=== PATIENT | female | born 1950 | race Caucasian/White ===

== ENCOUNTER → 2016-11-16 | Outpatient (CLI) | payer BC, MEDICARE ==
[2014-04-03 15:15] VITALS: BP 126/72
[~2016-11-16] MED LIST: ANAS1TAB3 PO; BUTA1CAP31 PO; CALC500T30 PO; CETI10CA PO; DILT240C11 PO; HYDR-965 PO; IBUP100T8 PO; INDO25CA PO; LOSA50TA6 PO; METF-620 PO; MULT-245 PO; OMEP10CA PO; OMEP20CA9 PO; ZOLP10TA4 PO
--- NOTE | 2016-11-16 12:26 | RAD ---
MRI Lumbar Spine without contrast History: Low back pain with bilateral leg radiculopathy Technique: Multiplanar, multi sequential noncontrast MR imaging was performed of the lumbar spine. Contrast: None Comparison: None Findings: There is old superior height loss and large Schmorl's node of L1, also superior endplate concavity of L2 not associated with significant marrow edema. There is more advanced degenerative disc disease L5-S1, L3-4, L2-3 and to lesser degree at L4-5. L5-S1 endplate edema and to lesser degree superiorly of L5 likely to be reactive/degenerative in etiology. There is grade 1 anterior spondylolisthesis at L5-S1 due to bilateral L5 spondylolysis. Conus terminates normally at L1-2. There is 3.3 cm likely cyst of the left kidney. T12-L1: Spinal canal and neural foramina are adequate. There is mild buckling of the ligamentum flavum. L1-L2: There is very minimal disc osteophyte complex. There is mild narrowing of the right neural foramen, left neural foramen adequate. Spinal canal is overall adequate. L2-L3: There is minimal broad posterior disc osteophyte complex somewhat greater in the far right lateral recess at which there is shallow superimposed protrusion. There is moderate narrowing of the far lateral recesses bilaterally somewhat greater on the right. There is fzuq-pj-ttorjevm narrowing of the right neural foramen, left neural foramen overall adequate. L3-L4: There is moderate hypertrophic change and mild to moderate buckling of the ligamentum flavum greater on the right. There is minimal disc osteophyte complex. There is jgeu-vs-drzynljk spinal stenosis. There is moderate narrowing of the right neural foramen, left neural foramen overall adequate. L4-L5: Spinal canal is adequate. There is moderate facet hypertrophic change. There is minimal narrowing of the right neural foramen, left neural foramen overall adequate. L5-S1: There is partial uncovering of the posterior aspect of the disc due to spondylolisthesis, superimposed disc osteophyte complex and bulge, also protrusion in the left neural foramen. There is severe narrowing of the neural foramina bilaterally with impingement of the exiting L5 nerve roots. Spinal canal is adequate. Impression: 1. There is grade 1 anterior spondylolisthesis at L5-S1 due to bilateral L5 spondylolysis. There is severe bilateral L5-S1 neural foramina compromise with impingement of the exiting L5 nerve roots bilaterally. 2. There is more advanced degenerative disc disease L2-3, L3-4, L5-S1 and to lesser degree at L4-5. There is multilevel spondylosis. 3. There is mild to moderate spinal stenosis at L3-4, also moderate lateral recess stenosis bilaterally at L2-3. 4. There is other tbah-jo-ihoqoreu neural foramina compromise as stated. 5. There is left renal cyst. Electronically signed by: Marcio Pratt MD (11/16/2016 12:23 PM) [facility] [email or web address]
== END | disposition home or self-care (01) ==
LOC: MRI 10:27
PROVIDERS: ATTEND Nurse Practitioner Family
DX: M51.16 Intervertebral disc disorders with radiculopathy, lumbar region (principal); M48.06 Spinal stenosis, lumbar region; M43.17 Spondylolisthesis, lumbosacral region; N28.1 Cyst of kidney, acquired
CPT/HCPCS: 72148

== ENCOUNTER → 2016-12-16 | Outpatient (CLI) | payer BC, MEDICARE ==
[2014-04-03 15:15] VITALS: BP 126/72
[~2016-12-16] MED LIST changes: +ALEN70TA3 PO; +DILT240C2 PO; +IOHEXOL 180 MG/ML 10 ML VIAL. ONE; +ZOLP5TAB PO; +methylPREDNISolone ACETATE 40 MG/ML VIAL. ONE; +methylPREDNISolone ACETATE 80 MG/ML VIAL. ONE
--- NOTE | 2016-12-16 14:00 | PAIN ---
DATE OF SERVICE: 12/16/2016 CHIEF COMPLAINT: Low back and right lower extremity pain. HISTORY OF PRESENT ILLNESS: This is a 66-year-old female with history of pain for many years but worse over the past 6 months or so in the low back and right lower extremity with radiating pain in the right posterior lateral thigh, posterior gluteus, posterior calf with cramping in the calf on the right side into the foot as well. She reports it is a stabbing, radiating, can be cold sensation in the right foot with burning and cramping at times as well. The patient reports not a result of any specific injury or accident that she is aware of. It has been gradually getting worse over time. The patient reports it awakens her from sleep, but only rarely. Does not affect her bowel or bladder control, but does affect her ability to walk. She feels weakness in the right lower extremity, no complete loss of motor function, but significant fatigability and weakness with the right leg with ambulation. The patient reports it is better with sitting or lying down, again rarely awakens her from sleep, worse with standing, walking, changing positions. The patient is doing some stretching and strengthening exercises on her own. She has tried also ibuprofen and Fioricet, which helps to moderate extent about 20-30% decreasing the pain each of these. The patient reports no loss of motor function again, but significant fatigability in the right leg compared to the left. PAST MEDICAL HISTORY: Significant for hypertension, type 2 diabetes, hearing loss, history of breast cancer in 2012, cigarette smoking, quit 20 years ago, arthritis, osteoporosis, headaches. PREVIOUS SURGERY: Includes tonsillectomy, right second toe amputation, appendectomy, thyroid cyst removal, bone graft left foot in 1993, right toe surgery in 2004, right knee scope 2008, segmental mastectomy on the right in 2012 and left knee scope in 2014. CURRENT MEDICATIONS: Include multivitamins, Fiorinal, metformin, Arimidex, diltiazem, Zyrtec, losartan, Cardizem, Fosamax, and Ambien. ALLERGIES: THE PATIENT IS ALLERGIC TO SULFA. FAMILY HISTORY: Significant for no major medical problems or conditions that she is aware of. 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 REVIEW OF SYSTEMS: The patient's review of systems is positive for those items mentioned in history of present illness. All systems reviewed and otherwise negative. It is complete, full, well documented on the patient's chart. PHYSICAL EXAMINATION: VITAL SIGNS: Today, the patient's blood pressure is 144/81, pulse 80, respirations 18, temperature 97.3 degrees Fahrenheit, height 5 feet 1 inch. Weight is 194 pounds. GENERAL: The patient is awake, alert, oriented, appropriate, very pleasant demeanor. HEENT: Head shows normocephalic, atraumatic. Extraocular movements are intact, symmetrical. Oral cavity, mucous membranes are moist and pink. Dentition is intact. NECK: Shows anterior throat supple without palpable lymphadenopathy noted. Swallow reflex is symmetrical. CHEST: Shows normal on inspection. Breath sounds are clear to auscultation bilaterally. HEART: Shows S1 and S2 clear. Previous surgical scars noted from right mastectomy. ABDOMEN: Soft, nontender, nondistended. No palpable organomegaly. No rebound or guarding demonstrated. BACK: Shows spine grossly midline. Normal appearing cervical lordotic curvature, thoracic kyphotic curvature, and lumbar lordotic curvature. No previous bruises, lesions, rashes or scars are noted. Lumbar paraspinous muscle shows symmetrical on inspection. With palpation shows some moderate tenderness, more on the right than the left with direct palpation, but only diffusely without trigger points, without radiation of pain. The patient has full rotational motion of lumbar spine, both laterally greater than 10 degrees right and left as well as extension greater than 10 degrees, forward flexion at 45 degrees without difficulty. The patient's lower extremities showed deep tendon reflexes 2+/4 in the patellar and 1+ in calcaneus tendon and equal. Motor exam is approximately 4 on a scale of 5 with right dorsiflexion and extension and 5/5 on the left. Peripheral pulses are 1+ posterior tibial and dorsalis pedis pulses. No peripheral edema is noted. No clubbing, no cyanosis. Lower extremities are warm and dry to touch, equal in color and appearance. The patient's straight leg raise noted to be positive on the right at about 40-45 degrees and left side is negative. Gaenslen's and Rogelio's maneuvers are negative bilaterally. The patient is able to stand, stand on her toes without significant difficulty or loss of balance, walks with a normal appearing gait, slightly favoring the right lower extremity, not using any assistive devices such as canes or walkers to ambulate for short distances in the office today. IMPRESSION: 1. This is a 66-year-old female with assisted low back pain and about 6 months of increasing radicular pain in right lower extremity as noted. 2. MRI scan of the lumbar spine showing L5-S1 superimposed disk osteophyte complex and perfusion in the left neural foramen with severe narrowing of the neural foramina bilaterally with impingement of exiting L5 nerve roots. 3. Hypertension. 4. Type 2 diabetes. 5. History of breast cancer. PLAN: Options were discussed with the patient including conservative medical management, physical therapy, interventional techniques and she would like to pursue interventional techniques. We discussed a lumbar epidural steroid injection using description as well as anatomical models to describe the procedure. Risks were then discussed including, but not limited to bleeding, infection, possibility of epidural hematoma, subsequent neurologic compromise, dural puncture, headaches, spinal cord and/or nerve damage, side effects of steroid medication and poor results regarding pain control. The patient understands and wishes to proceed. The patient will return to clinic in approximately 2 weeks for followup. She was counseled as to return appointment, activity level and side effects to be aware of. DIAGNOSES: Lumbar radiculopathy with lumbar degenerative disk disease and lumbar spinal stenosis. PROCEDURE: Lumbar epidural steroid injection in translaminar approach at the L5-S1 level using C-arm fluoroscopic guidance under sterile prep and drape using local anesthetic. Medication injected a total of 120 mg Depo-Medrol plus 10 mL of preservative-free normal saline and 2 mL Isovue for contrast. CONDITION AT DISCHARGE: Stable. The patient tolerated the procedure well, had no complications. JEAN PIERRE CLIFTON MD DR: MARA/gissel JOB#: [id number] / [id number]
== END | disposition home or self-care (01) ==
LOC: PNCL 10:59
PROVIDERS: ATTEND Anesthesiology
DX: M51.16 Intervertebral disc disorders with radiculopathy, lumbar region (principal); M48.061 Spinal stenosis, lumbar region without neurogenic claudication; I10 Essential (primary) hypertension; E11.9 Type 2 diabetes mellitus without complications; K21.9 Gastro-esophageal reflux disease without esophagitis; M19.91 Primary osteoarthritis, unspecified site; Z72.89 Other problems related to lifestyle; Z85.3 Personal history of malignant neoplasm of breast; Z98.890 Other specified postprocedural states; Z86.69 Personal history of other diseases of the nervous system and sense organs; Z87.39 Personal history of other diseases of the musculoskeletal system and connective tissue; Z88.2 Allergy status to sulfonamides
CPT/HCPCS: 62323; J1030; J1040

== ENCOUNTER → 2017-01-05 | Outpatient (CLI) | payer BC ==
[2014-04-03 15:15] VITALS: BP 126/72
[~2017-01-05] MED LIST changes: -IOHEXOL 180 MG/ML 10 ML VIAL. ONE; -methylPREDNISolone ACETATE 40 MG/ML VIAL. ONE; -methylPREDNISolone ACETATE 80 MG/ML VIAL. ONE
--- NOTE | 2017-01-05 14:24 | KCIC ---
DATE: December 2017 01/05/2017 EXAM: MAMMO GABRIEL VY ALEJANDRE, BREAST LEFT HISTORY: History of right breast carcinoma status post lumpectomy in 2012 COMPARISON: Multiple prior comparisons including diagnostic bilateral 10/25/2015, 02/06/2014, 02/10/2013 This study was interpreted with the benefit of Computerized Aided Detection (CAD). FINDINGS: Bilateral diagnostic mammogram: The breast parenchyma is primarily fatty replaced. Breast parenchyma level density A. Bilateral digital 2-D and 3-D CC and MLO views were obtained. There are postsurgical changes of a lumpectomy in the superior right breast. There are scattered benign calcifications throughout the right breast. There is a possible nodule in the left breast seen on the gabriel images. Patient will proceed to left breast ultrasound for further evaluation. Left breast ultrasound: Survey of the entire left breast demonstrates no suspicious mass or fluid collection. IMPRESSION: Postsurgical changes in the right breast with no mammographic evidence to suggest malignancy. Recommend routine screening bilateral mammogram in 12 months. BI-RADS CATEGORY: 2 BENIGN FINDING(S) RECOMMENDED FOLLOW-UP: ADD ADDITIONAL IMAGING PQRS compliance statement: Patient information was entered into a reminder system with a target due date December 2017 for the next mammogram. Mammography is a sensitive method for finding small breast cancers, but it does not detect them all and is not a substitute for careful clinical examination. A negative mammogram does not negate a clinically suspicious finding and should not result in delay in biopsying a clinically suspicious abnormality. "Our facility is accredited by the [employer] Mammography Program."
== END ==
LOC: KCIC MAMMO 10:16
PROVIDERS: ATTEND Internal Medicine Hematology & Oncology
DX: Z12.31 Encounter for screening mammogram for malignant neoplasm of breast (principal)
CPT/HCPCS: 76641; G0204; G0279; 77062; 77066

== ENCOUNTER → 2017-10-08 | Outpatient (CLI) | payer BC, MEDICARE ==
[2014-04-03 15:15] VITALS: BP 126/72
[~2017-10-08] MED LIST changes: -INDO25CA PO; +INDO25CA5 PO; +IOHEXOL 180 MG/ML 10 ML VIAL. ONE; +LIDOCAINE 2% PF 2ML VIAL. ONE; -METF-620 PO; +METF10003 PO; +OMEG1CAP6 PO; +methylPREDNISolone ACETATE 40 MG/ML VIAL. ONE; +methylPREDNISolone ACETATE 80 MG/ML VIAL. ONE
--- NOTE | 2017-10-08 18:52 | PAIN ---
DATE OF SERVICE: 10/08/2017 DIAGNOSES: Lumbar radiculopathy with lumbar spinal stenosis, lumbar degenerative disk disease. HISTORY OF PRESENT ILLNESS: The patient is a 67-year-old female who returns for followup status post lumbar epidural steroid injection x 1 on 06/22/2017. The patient reports she did very well about 60% improvement overall, still doing well but still some pain in the low back and right and left lower extremities. The patient reports the right is worse, but the left side is having some increased pain radiating into the posterior gluteus, posterior thigh, posterior calf, lateral calf into the ankle bilaterally. The patient reports it is burning, stabbing, radiating, sometimes dull across the low back as well. The patient reports it is a 7 on a scale of 10 at its worse, 5 on average, 3 at its least and is a 5 today. The patient reports no new motor or sensory deficits. She had been increasing her activity of distance walking and doing household activities with greater ease and comfort, sleeping better at night, still sleeps well, does not awaken her from sleep. No new motor or sensory deficits, no bowel or bladder incontinence or other complaints. PHYSICAL EXAMINATION: VITAL SIGNS: The patient's blood pressure 113/74, pulse 79, respirations 20, temperature is 97.9 degrees Fahrenheit, height is 5 feet 1 inch, weight 193 pounds. GENERAL: The patient is awake, alert, oriented, appropriate, very pleasant demeanor. HEENT: Shows normocephalic, atraumatic. Extraocular movements intact, symmetrical. Oral cavity: Mucous membranes moist and pink. Dentition is intact. NECK: Shows anterior throat supple without palpable lymphadenopathy noted. Swallow reflex is symmetrical. CHEST: Shows normal on inspection. Breath sounds clear to auscultation bilaterally. HEART: Shows S1, S2 clear. No murmurs auscultated. ABDOMEN: Soft, nontender, nondistended. No palpable organomegaly is noted. No rebound or guarding demonstrated. BACK: Shows spine grossly in the midline. Slight exaggeration of thoracic kyphosis and minor flattening of lumbar lordotic curvature. Lumbar paraspinous musculature shows symmetrical on inspection, on palpation shows some moderate tenderness, but only diffusely in the lower lumbar distribution of paraspinous muscles bilaterally without radiation. The patient's back shows good rotational motion both laterally as well as extension and flexion without difficulty. EXTREMITIES: Lower extremities show deep tendon reflexes 2+ in the patellar, 1+ tendo-calcaneus tendons. Motor exam is approximately 4 on a scale of 5 on the right with dorsiflexion, extension, 5/5 on the left. Peripheral pulses are 1+ posterior tibial and no peripheral edema is noted bilaterally. Options were discussed with the patient. The patient's old chart was reviewed as her current medication regimen and updated. Current review of systems is updated today as well. We will proceed with a second lumbar epidural steroid injection today with fluoroscopic guidance. Risks were again discussed including, but not limited to bleeding, infection, possibility of epidural hematoma and subsequent neurological compromise, dural puncture, headaches, spinal cord and/or nerve damage, side effects of steroid medication and poor results regarding pain control. The patient understands and wished to proceed. The patient to return to clinic in approximately 2 weeks for followup, was counseled on return appointment, activity level and side effects to be aware of. DIAGNOSIS: Lumbar radiculopathy with lumbar spinal stenosis, lumbar degenerative disk disease. PROCEDURE: Lumbar epidural steroid injection, translaminar approach L5-S1 level using C-arm fluoroscopic guidance under sterile prep and drape using local anesthetic. MEDICATION INJECTED: A total of 120 mg Depo-Medrol plus 10 mL of preservative-free normal saline and 2 mL of Isovue for contrast. CONDITION AT DISCHARGE: Stable. The patient tolerated procedure well, had no complications. JEAN PIERRE CLIFTON MD DR: MARA/gissel JOB#: [id number] / [id number]
== END | disposition home or self-care (01) ==
LOC: PNCL 10:03
PROVIDERS: ATTEND Anesthesiology
DX: M51.16 Intervertebral disc disorders with radiculopathy, lumbar region (principal); M48.061 Spinal stenosis, lumbar region without neurogenic claudication; Z88.2 Allergy status to sulfonamides; Z98.890 Other specified postprocedural states; I10 Essential (primary) hypertension; E11.9 Type 2 diabetes mellitus without complications; K21.9 Gastro-esophageal reflux disease without esophagitis; Z90.49 Acquired absence of other specified parts of digestive tract; E66.9 Obesity, unspecified; Z85.3 Personal history of malignant neoplasm of breast; Z90.11 Acquired absence of right breast and nipple; Z89.421 Acquired absence of other right toe(s); Z72.89 Other problems related to lifestyle; F17.200 Nicotine dependence, unspecified, uncomplicated; M19.90 Unspecified osteoarthritis, unspecified site; Z79.899 Other long term (current) drug therapy; Z79.84 Long term (current) use of oral hypoglycemic drugs
CPT/HCPCS: 62323; J1030; J1040; J2001; Q9965

== ENCOUNTER → 2017-11-15 | Outpatient (CLI) | payer BC, MEDICARE ==
[2014-04-03 15:15] VITALS: BP 126/72
[~2017-11-15] MED LIST changes: -ANAS1TAB3 PO; +ANAS1TAB47 PO; -IOHEXOL 180 MG/ML 10 ML VIAL. ONE; -LIDOCAINE 2% PF 2ML VIAL. ONE; -LOSA50TA6 PO; +LOSA50TA7 PO; -METF10003 PO; +METF10007 PO; -methylPREDNISolone ACETATE 40 MG/ML VIAL. ONE; -methylPREDNISolone ACETATE 80 MG/ML VIAL. ONE
--- NOTE | 2017-11-15 15:28 | KCIC ---
2 view right rib detail series and PA view chest x-ray Clinical indications: Right-sided rib pain for one week. Cough for 3 weeks. Right rib detail series: No acute right rib fracture or osteolytic process is evident. Chest x-ray: Comparison is made to prior study dated February 22, 2012. No acute lung infiltrate or pleural effusion or pulmonary edema or pneumothorax is seen. Left lung base granuloma is again evident. The heart size and pulmonary vasculature and mediastinum and both domingo are stable. IMPRESSION: No acute radiographic abnormality. Electronically signed by: Marcelo Mak MD (11/15/2017 3:24 PM) [id number]
== END | disposition home or self-care (01) ==
LOC: KCIC 09:31
PROVIDERS: ATTEND Nurse Practitioner Family
DX: R07.81 Pleurodynia (principal); J84.10 Pulmonary fibrosis, unspecified; I10 Essential (primary) hypertension; E11.9 Type 2 diabetes mellitus without complications; E78.00 Pure hypercholesterolemia, unspecified; M19.91 Primary osteoarthritis, unspecified site; K21.9 Gastro-esophageal reflux disease without esophagitis; Z88.0 Allergy status to penicillin; Z88.2 Allergy status to sulfonamides; Z86.39 Personal history of other endocrine, nutritional and metabolic disease; Z87.39 Personal history of other diseases of the musculoskeletal system and connective tissue; Z86.69 Personal history of other diseases of the nervous system and sense organs; Z90.49 Acquired absence of other specified parts of digestive tract; Z90.11 Acquired absence of right breast and nipple
CPT/HCPCS: 71101

== ENCOUNTER → 2017-12-06 | Outpatient (CLI) | payer BC, MEDICARE ==
[2014-04-03 15:15] VITALS: BP 126/72
--- NOTE | 2017-12-06 15:47 | KCIC ---
EXAM: Abdomen sonogram limited. HISTORY: Right upper quadrant pain. TECHNIQUE: Sonographic imaging of the abdomen was performed. COMPARISON: None. FINDINGS: The liver is upper normal in size. There is hepatic steatosis. No focal hepatic lesion is seen. The common bile duct is normal in caliber. The gallbladder is unremarkable. The right kidney is unremarkable. There is no hydronephrosis. The pancreatic tail is partially obscured. The aorta is normal in caliber. The inferior cava is patent. IMPRESSION: 1. Hepatic steatosis and upper normal liver size. 2. Otherwise, unremarkable abdomen sonogram. Electronically signed by: Janet Freeman MD (12/06/2017 3:44 PM) [facility] [email or web address]
== END | disposition home or self-care (01) ==
LOC: KCIC US 14:42
PROVIDERS: ATTEND Nurse Practitioner Family
DX: K76.0 Fatty (change of) liver, not elsewhere classified (principal)
CPT/HCPCS: 76705

== ENCOUNTER → 2018-01-07 | Outpatient (CLI) | payer BC, MEDICARE ==
[2014-04-03 15:15] VITALS: BP 126/72
[~2018-01-07] MED LIST changes: +HYDR-3165 PO; -HYDR-965 PO
--- NOTE | 2018-01-07 16:51 | RAD ---
Hepatobiliary examination HISTORY: Right upper quadrant pain for 3 months FINDINGS: Hepatobiliary examination was performed. Patient was injected with 5.5 mCi technetium 99m Choletec. Patient was given Ensure to drink, gallbladder ejection fraction calculated. There is normal radiotracer activity of the liver, common bile duct, and the small bowel. There is radiotracer activity seen in the region of the gallbladder about 11 to 15 minutes. Gallbladder ejection fraction is within normal limits at 72%. IMPRESSION: 1. There is normal visualization of the gallbladder and a normal gallbladder ejection fraction. Electronically signed by: Marcio Pratt MD (01/07/2018 4:48 PM) [email or web address]
== END | disposition home or self-care (01) ==
LOC: NM 14:10
PROVIDERS: ATTEND Nurse Practitioner Family
DX: R10.11 Right upper quadrant pain (principal)
CPT/HCPCS: 78226; 96374; 96375; A9537

== ENCOUNTER → 2018-02-03 | Outpatient (CLI) | payer BC, MEDICARE ==
[2014-04-03 15:15] VITALS: BP 126/72
[~2018-02-03] MED LIST changes: +LOSA-73 PO; -LOSA50TA7 PO
--- NOTE | 2018-02-03 10:40 | KCIC ---
EXAMINATION: Magnetic resonance imaging (MRI) of the thoracic spine without contrast 02/03/2018 8:45 AM HISTORY: Thoracic back pain. TECHNIQUE: Multiplanar multi-weighted MRI of the thoracic spine was performed without intravenous contrast using the standard thoracic spine protocol. Contrast information: None administered. COMPARISON: None available. FINDINGS: Alignment of the thoracic spine appears normal. There is mild reversal of the normal thoracolumbar lordosis. There is mild multilevel disc height loss, primarily at T10-T11 and T11-T12. Thoracic spinal cord signal intensity appears normal in all sequences. Vertebral body heights are maintained. No acute fracture is identified. Faint Modic type II endplate degenerative changes are identified along superior endplate of T8. Descending thoracic aorta is normal in caliber. There is a small hiatal hernia. No suspicious pulmonary findings are identified. No paraspinal soft tissue abnormality is identified. At T10-T11, there is a moderate circumferential disc bulge. There is mild to moderate facet arthropathy. There is severe bilateral neuroforaminal stenosis. There is mild spinal canal stenosis without cord signal alteration. At T11-T12, there is a posterior disc osteophyte complex. There is moderate facet arthropathy.. There is no significant neuroforaminal stenosis. There is mild spinal canal stenosis. There is a simple appearing left superior pole renal cortical cyst measuring 3.5 cm. There is a left adrenal nodule measuring 1.7 x 1.3 cm which is indeterminate on this examination. IMPRESSION: 1. Mild to moderate degenerative changes of the thoracic spine are present, centered at T10-T11 and T11-T12, as described in detail above. 2. Left adrenal nodule is indeterminate measuring 1.7 x 1.[address] cm. [address] mass [address] may be of benefit. Electronically signed by: Mary Alice Sanchez MD (02/03/2018 10:36 AM) [facility]
== END | disposition home or self-care (01) ==
LOC: KCIC MRI 08:30
PROVIDERS: ATTEND Nurse Practitioner Family
DX: M51.34 Other intervertebral disc degeneration, thoracic region (principal); M48.04 Spinal stenosis, thoracic region; M25.78 Osteophyte, vertebrae; M12.88 Other specific arthropathies, not elsewhere classified, other specified site; K44.9 Diaphragmatic hernia without obstruction or gangrene; M40.45 Postural lordosis, thoracolumbar region
CPT/HCPCS: 72146

== ENCOUNTER → 2018-02-28 | Outpatient (CLI) | payer BC, MEDICARE ==
[2014-04-03 15:15] VITALS: BP 126/72
[~2018-02-28] MED LIST changes: +IOHEXOL 180 MG/ML 10 ML VIAL. ONE; +methylPREDNISolone ACETATE 40 MG/ML VIAL. ONE; +methylPREDNISolone ACETATE 80 MG/ML VIAL. ONE
--- NOTE | 2018-02-28 16:36 | PAIN ---
DATE OF SERVICE: 02/28/2018 DIAGNOSES: Lumbar radiculopathy with lumbar degenerative disk disease, lumbar spinal stenosis. HISTORY OF PRESENT ILLNESS: The patient is a 67-year-old female who returns for followup status post lumbar epidural steroid injections, most recently in October of last year. The patient did very well after last injection with approximately 100% improvement for the first month or so, then about 50% improvement and still doing better on the left side. The patient reports her right side is hurting now in the low back and right lower extremity, posterior gluteus, posterior thigh, posterior calf into the foot as well. The patient reports it is tight, burning, stabbing, rates a 6 on a scale 10 at its worst, 4 on average, 2 at its least and is a 2 today. The patient reports no new motor or sensory deficits. She is doing much better with increased activity, standing, walking, changing positions, traveling much greater ease and comfort, still sleeping well at night, does not awaken her from sleep. The patient reports it is much better with sitting or lying down, worse with walking and standing. The patient reports no new motor or sensory deficits, no new bowel or bladder incontinence or other complaints. PHYSICAL EXAMINATION: VITAL SIGNS: The patient's blood pressure 115/71, pulse 69, respirations are 16, temperature 98.3 degrees Fahrenheit. Height 5 feet 1 inch and weight 198 pounds. GENERAL: The patient is awake, alert, oriented, appropriate, very pleasant demeanor. HEENT: Head shows normocephalic, atraumatic. Extraocular movements intact and symmetrical. Oral cavity, mucous membranes are moist and pink. Dentition is intact. NECK: Shows anterior throat supple without palpable lymphadenopathy noted. Swallow reflex is symmetrical. CHEST: Shows normal with inspection. Breath sounds are clear to auscultation bilaterally. HEART: Shows S1, S2 clear. No murmurs auscultated. ABDOMEN: Soft, nontender, nondistended. No palpable organomegaly is noted. No rebound or guarding demonstrated. BACK: Shows spine grossly in the midline. Normal appearing thoracic kyphosis, some minor flattening of lumbar lordotic curvature. Lumbar paraspinous muscle shows symmetrical on inspection, with palpation shows some moderate tenderness diffusely bilaterally, but without asymmetry. No specific tenderness with the upper levels, but lower level paraspinous musculature shows some moderate tenderness with palpation, but only diffusely. The patient shows good rotational motion both laterally as well as extension and flexion without significant difficulty or pain reported. EXTREMITIES: Lower extremities show deep tendon reflexes 2+ in the patella, 1+ tendocalcaneous tendon. Motor is again approximately 4 on a scale 5 on the right dorsiflexion and extension and 5/5 on the left. Peripheral pulses are 1+ posterior tibia. No peripheral edema is noted bilaterally. Options were discussed with the patient. The patient's old chart was reviewed, his current medication regimen updated. Current review of systems updated today as well. We will proceed with a first in this series of lumbar epidural steroid injection with fluoroscopic guidance. Risks were again discussed including, but not limited to bleeding, infection, possibility of epidural hematoma, subsequent neurological compromise, dural puncture, headaches, spinal cord and/or nerve damage, side effects of steroid medication and poor results regarding pain control. The patient understands and wished to proceed. The patient to return to clinic in approximately 2 weeks for followup, was counseled on return appointment, activity level and side effects to be aware of. DIAGNOSES: Lumbar radiculopathy with lumbar spinal stenosis, lumbar degenerative disk disease. PROCEDURE: Lumbar epidural steroid injection, translaminar approach L5-S1 level using C-arm fluoroscopic guidance under sterile prep and drape using local anesthetic. MEDICATION INJECTED: A total of 120 mg Depo-Medrol, plus 10 mL of preservative-free normal saline and 2 mL of Isovue for contrast. CONDITION AT DISCHARGE: Stable. The patient tolerated the procedure well, had no complications. JEAN PIERRE CLIFTON MD DR: MARA/nts JOB#: [id number] / [id number]
== END | disposition home or self-care (01) ==
LOC: PNCL 08:53
PROVIDERS: ATTEND Anesthesiology
DX: M51.16 Intervertebral disc disorders with radiculopathy, lumbar region (principal); M48.061 Spinal stenosis, lumbar region without neurogenic claudication; Z88.2 Allergy status to sulfonamides
CPT/HCPCS: 62323; J1030; J1040; Q9965

== ENCOUNTER → 2018-03-29 | Outpatient (CLI) | payer BC, MEDICARE ==
[2014-04-03 15:15] VITALS: BP 126/72
[~2018-03-29] MED LIST changes: +CONTRAST GIVEN. MC PRN; -IOHEXOL 180 MG/ML 10 ML VIAL. ONE; -methylPREDNISolone ACETATE 40 MG/ML VIAL. ONE; -methylPREDNISolone ACETATE 80 MG/ML VIAL. ONE
[2018-03-29] MEDS: IOHEXOL 300 MG/ML 100ML VIAL. IV ONE (08:53)
--- NOTE | 2018-03-29 10:01 | KCIC ---
PQRS Compliance statement: One or more of the following individualized dose reduction techniques were utilized for this examination: 1. Automated exposure control. 2. Adjustment of the mA and/or kV according to patient size. 3. Use of iterative reconstruction technique. Indication:Adrenal gland abnormality seen on MRI TECHNIQUE: CT abdomen without and with IV contrast with multiplanar reformats. COMPARISON: None FINDINGS: Heart is normal in size. No pericardial or pleural effusion. Calcified granuloma in the left lower lobe. Otherwise, visualized lung bases are clear. Scattered calcified granulomata seen in the liver and spleen. No radiopaque gallstones. Pancreas is within normal limits. No nephrolithiasis or hydronephrosis. Simple cyst is seen in the interpolar left kidney measuring 3.7 cm. 1.5 x 1.3 and 1.4 x 1.1 cm left adrenal gland nodules are seen demonstrating Hounsfield units compatible with adrenal adenomas. No retroperitoneal adenopathy. Visualized bowel demonstrates scattered diverticula. No suspicious bony lesion. Multilevel degenerative disease in the lumbar spine. IMPRESSION: Left adrenal gland nodules compatible with adrenal adenomas. Electronically signed by: Redd Calderón DO (03/29/2018 9:56 AM) [id number]
== END | disposition home or self-care (01) ==
LOC: KCIC CT 07:52
PROVIDERS: ATTEND Nurse Practitioner Family
DX: E27.8 Other specified disorders of adrenal gland (principal); N28.1 Cyst of kidney, acquired; M47.816 Spondylosis without myelopathy or radiculopathy, lumbar region
CPT/HCPCS: 74170; 82565; Q9967

== ENCOUNTER → 2018-04-26 | Outpatient (CLI) | payer BC, MEDICARE ==
[2014-04-03 15:15] VITALS: BP 126/72
[~2018-04-26] MED LIST changes: -CONTRAST GIVEN. MC PRN; +IOHEXOL 180 MG/ML 10 ML VIAL. ONE; +MELO15TA23 PO; +OMEP20CA10 PO; -OMEP20CA9 PO; +methylPREDNISolone ACETATE 40 MG/ML VIAL. ONE; +methylPREDNISolone ACETATE 80 MG/ML VIAL. ONE
--- NOTE | 2018-04-26 23:43 | PAIN ---
DATE OF SERVICE: 04/26/2018 DIAGNOSES: Lumbar radiculopathy with lumbar degenerative disk disease and lumbar spinal stenosis. HISTORY OF PRESENT ILLNESS: This is a 67-year-old female who returns for followup status post lumbar epidural steroid injection x 1 on 02/28/2018. The patient reports she did very well with about 90% improvement in her low back and bilateral lower extremity pain, some pain returning now on the right posterior gluteus, posterior thigh, but across the low back down to the posterior hips, posteriorly in the gluteus as well. The patient reports she is doing quite well. She was increasing her distance walking, doing activities, traveling much better, sleeping better at night. It is not awakening her from sleep currently until the last week or so, the patient reports this is beginning to wake her up from sleep again. The patient reports the pain as sharp, tingling, burning, radiating into the low back, into the bilateral lower extremities, again worse on the right. The patient reports pain is a 6 on a scale 10 at its worst, 4 on average, 2 at its least and is a 2 today. The patient reports no new motor or sensory deficits, no new bowel or bladder incontinence or other complaints. PHYSICAL EXAMINATION: VITAL SIGNS: The patient's blood pressure is 134/84, pulse 84, respirations 18, temperature 98.0 degrees Fahrenheit, height is 5 feet 1 inch, weight is 201 pounds. GENERAL: The patient is awake, alert, oriented, appropriate, very pleasant demeanor. HEENT: Shows normocephalic, atraumatic. Extraocular movements are intact and symmetrical. Oral cavity: Mucous membranes moist and pink. Dentition is intact. NECK: Shows anterior throat supple without palpable lymphadenopathy noted. Swallow reflex is symmetrical. CHEST: Shows normal on inspection. Breath sounds are clear to auscultation bilaterally. HEART: Shows S1, S2 clear. No murmurs auscultated. ABDOMEN: Soft, nontender, nondistended. No palpable organomegaly is noted. No rebound or guarding demonstrated. BACK: Shows spine grossly in the midline. Normal appearing thoracic kyphosis, some minor flattening of lumbar lordotic curvature. Lumbar paraspinous muscle shows symmetrical on inspection. On palpation shows some moderate tenderness, but only diffusely in the low lumbar distribution of the paraspinous musculature. The patient shows good rotational motion of lumbar spine, both laterally as well as extension and flexion without significant difficulty. EXTREMITIES: The patient's lower extremities show deep tendon reflexes at 2+ in the patellar, 1+ tendo calcaneus tendons are equal. Motor exam is strong with 5/5 dorsiflexion and extension on the left, and 4/5 on the right, but intact. Peripheral pulses are 1+ posterior tibia. No peripheral edema is noted. Options were discussed with the patient. The patient's old chart was reviewed as her current medication regimen updated. Current review of systems is updated today as well. We will proceed with a second in the series of lumbar epidural steroid injection today with fluoroscopic guidance. Risks were again discussed including, but not limited to bleeding, infection, possibility of epidural hematoma, subsequent neurologic compromise, dural puncture, headaches, spinal cord and/or nerve damage, side effects of steroid medication and poor results regarding pain control. The patient understands and wished to proceed. The patient will return to the clinic in approximately 2 weeks for followup, was counseled on return appointment, activity level and side effects to be aware of. DIAGNOSIS: Lumbar radiculopathy with lumbar spinal stenosis, lumbar degenerative disk disease. PROCEDURE: Lumbar epidural steroid injection, translaminar approach at L5-S1 level using C-arm fluoroscopic guidance under sterile prep and drape using local anesthetic. MEDICATION INJECTED: A total of 120 mg Depo-Medrol plus 10 mL of preservative-free normal saline and 2 mL of Isovue for contrast. CONDITION AT DISCHARGE: Stable. The patient the tolerated procedure well, had no complications. JEAN PIERRE CLIFTON MD DR: MARA/gissel JOB#: [id number] / [id number]
== END | disposition home or self-care (01) ==
LOC: PNCL 09:14
PROVIDERS: ATTEND Anesthesiology
DX: M51.16 Intervertebral disc disorders with radiculopathy, lumbar region (principal); M48.061 Spinal stenosis, lumbar region without neurogenic claudication; Z88.2 Allergy status to sulfonamides
CPT/HCPCS: 62323; J1030; J1040; Q9965

== ENCOUNTER → 2018-08-12 | Outpatient (CLI) | payer BC, MEDICARE ==
[2014-04-03 15:15] VITALS: BP 126/72
[~2018-08-12] MED LIST changes: -IOHEXOL 180 MG/ML 10 ML VIAL. ONE; -methylPREDNISolone ACETATE 40 MG/ML VIAL. ONE; -methylPREDNISolone ACETATE 80 MG/ML VIAL. ONE
--- NOTE | 2018-08-12 08:54 | PAIN ---
DATE OF SERVICE: 08/12/2018 DIAGNOSES: Lumbar radiculopathy with lumbar spinal stenosis, lumbar degenerative disk disease. HISTORY OF PRESENT ILLNESS: The patient is a 68-year-old female who returns for followup status post lumbar epidural steroid injection x 3, most recently 07/15/2018. The patient did very well with about 90% improvement of the first injection about 50% on the last injection. The patient reports still pain in the low back into the bilateral lower extremities, right greater than left, worse with walking, standing, change in positions. She has been doing increased activity with walking and doing overhead activities as well as household activities and guarding with greater ease and comfort. The pain is returning in the low back and more in the right leg than the left, posterior gluteus, posterior thigh, posterior calf, again on the right side worse than the left. The patient reports it is a 5 on a scale of 10 at its worst 2 on average and 0 when she is lying down and it is 2 this morning. The patient reports no new motor or sensory deficits, no new bowel or bladder incontinence or other complaints. PHYSICAL EXAMINATION: VITAL SIGNS: Today, the patient's blood pressure is 137/74, pulse 72, respirations 16, temperature 98.0 degrees Fahrenheit, height 5 feet 1 inch, weight is 207 pounds. GENERAL: The patient is awake, alert, oriented, appropriate, very pleasant demeanor. HEENT: Head shows normocephalic, atraumatic. Extraocular movements are intact and symmetrical. Oral cavity: Mucous membranes moist and pink. Dentition is intact. NECK: Shows anterior throat supple without palpable lymphadenopathy noted. Neck shows full rotational motion of cervical spine. CHEST: Shows normal on inspection. Breath sounds clear to auscultation bilaterally. HEART: Shows S1, S2 clear. No murmurs auscultated. ABDOMEN: Soft, nontender, nondistended. No palpable organomegaly is noted. No rebound or guarding demonstrated. BACK: Shows spine grossly in the midline, normal-appearing cervical lordotic curvature, thoracic kyphotic curvature and lumbar lordotic curvature slightly flattened. Lumbar paraspinous muscle shows symmetrical on inspection. On palpation shows some moderate tenderness diffusely, but only diffusely without radiation. The patient has good rotational motion of lumbar spine, both laterally as well as extension and flexion without significant pain reported. EXTREMITIES: Lower extremities show deep tendon reflexes at 2+ in the patellar, 1+ tendo-calcaneus tendons are equal. Motor exam is approximately 4 on a scale of 5 on the right and 5/5 on the left. Peripheral pulses are 1+ posterior tibial. No peripheral edema is noted bilaterally. Options were discussed with the patient. The patient's old chart was reviewed as her current medication regimen updated. Current review of systems updated today as well. We will proceed with holding injection as she is almost 6 months from previous first injection and will wait until 08/28/2018 for 6-month duration repeat for a lumbar epidural steroid injection, in the meantime we will try Medrol Dosepak. The patient was given instruction as well as side effects to be aware of with the medication and will continue with stretching and strengthening exercises, walking as tolerated and exercise as tolerated and will have her return on 08/29/2018 for lumbar epidural steroid injection at that time if still significant radicular pain is present. JEAN PIERRE CLIFTON MD DR: MARA/gissel JOB#: [id number] / [id number]
== END | disposition home or self-care (01) ==
LOC: PNCL 07:58
PROVIDERS: ATTEND Anesthesiology
DX: M51.16 Intervertebral disc disorders with radiculopathy, lumbar region (principal); M48.061 Spinal stenosis, lumbar region without neurogenic claudication
CPT/HCPCS: G0463

== ENCOUNTER → 2018-08-29 | Outpatient (CLI) | payer BC, MEDICARE ==
[2014-04-03 15:15] VITALS: BP 126/72
[~2018-08-29] MED LIST changes: +IOHEXOL 180 MG/ML 10 ML VIAL. ONE; +methylPREDNISolone ACETATE 40 MG/ML VIAL. ONE; +methylPREDNISolone ACETATE 80 MG/ML VIAL. ONE
--- NOTE | 2018-08-29 09:48 | PAIN ---
DATE OF SERVICE: 08/29/2018 PROGRESS NOTE FOR PAIN CLINIC DIAGNOSES: Lumbar radiculopathy with lumbar spinal stenosis, lumbar degenerative disk disease. HISTORY OF PRESENT ILLNESS: The patient is a 68-year-old female who returns for followup status post lumbar epidural steroid injections most recently on 07/15/2018. The patient did very well with about 90% improvement for the first 5-6 weeks and the pain began to return now and is fairly significant in the low back, right lower extremity, posterior gluteus, posterior thigh and posterior calf with burning, stabbing, pinching sensation radiating across the back into the right leg and radiating to the foot. The patient reports it is a 6 on a scale 10 at its worst over the past week, 3 on average, 1 at its least and is a 3 today. The patient reports she is still sleeping well at night, does not awaken her from sleep. Initially, she has increased her distance walking, changing positions, traveling with better ease and comfort, doing daily activities with much greater ease, now is returning with radicular pain in the right leg. The patient reports no new motor or sensory deficits, no new bowel or bladder incontinence or other complaints. PHYSICAL EXAMINATION: VITAL SIGNS: The patient's blood pressure is 119/70, pulse 75, respirations 18, temperature 98.3 degrees Fahrenheit, height is 5 feet 1 inch, weight is 204 pounds. GENERAL: The patient is awake, alert, oriented, appropriate, very pleasant demeanor. HEENT: Shows normocephalic, atraumatic. Extraocular movements are intact and symmetrical. Oral cavity; mucous membranes are moist and pink, dentition is intact. NECK: Shows anterior throat is supple. CHEST: Shows normal on inspection. Breath sounds are clear bilaterally. HEART: Shows S1 and S2 clear. No murmurs auscultated. ABDOMEN: Obese, soft, nontender, nondistended. No palpable organomegaly is noted. No rebound or guarding demonstrated. BACK: Shows spine grossly in the midline. Slight exaggeration of thoracic kyphosis, some minor flattening of the lumbar lordotic curvature. Lumbar paraspinous muscle shows symmetrical on inspection and with palpation has some moderate tenderness diffusely bilaterally, but only diffusely without radiation. The patient has good rotational motion of lumbar spine, both laterally as well as extension and flexion without difficulty. EXTREMITIES: Lower extremities show deep tendon reflexes at 2+ patellar, 1+ tendo-calcaneus tendons are equal. Motor exam is strong with 5/5 dorsiflexion and extension on the left and 4/5 on the right. Peripheral pulses are 1+ posterior tibial. No peripheral edema is noted bilaterally. Options were discussed with the patient. The patient's old chart was reviewed as well as his current medication regimen updated. Current review of systems updated today as well. We will proceed with the first in this series of lumbar epidural steroid injection today with fluoroscopic guidance. Risks were again discussed including, but not limited to bleeding, infection, possibility of epidural hematoma, subsequent neurologic compromise, dural puncture, headaches, spinal cord and/or nerve damage, side effects of steroid medication and poor results regarding pain control. The patient understands and wished to proceed. The patient will return to clinic in approximately 2 weeks for followup. She was counseled as to return appointment, activity level and side effects to be aware of. DIAGNOSES: Lumbar radiculopathy with lumbar spinal stenosis, lumbar degenerative disk disease. PROCEDURE: Lumbar epidural steroid injection, translaminar approach at L5-S1 level using C-arm fluoroscopic guidance under sterile prep and drape using local anesthetic. MEDICATION INJECTED: A total of 120 mg Depo-Medrol plus 10 mL of preservative-free normal saline and 2 mL of contrast. CONDITION AT DISCHARGE: Stable. The patient tolerated procedure well, had no complications. JEAN PIERRE CLIFTON MD DR: MARA/gissel JOB#: [id number] / [id number]
== END ==
LOC: PNCL 08:01
PROVIDERS: ATTEND Anesthesiology
DX: M51.16 Intervertebral disc disorders with radiculopathy, lumbar region (principal); M48.061 Spinal stenosis, lumbar region without neurogenic claudication
CPT/HCPCS: 62323; J1030; J1040; Q9965

== ENCOUNTER → 2018-10-25 | Outpatient (CLI) | payer BC, MEDICARE ==
[2014-04-03 15:15] VITALS: BP 126/72
[~2018-10-25] MED LIST changes: +INDO25CA21 PO; -INDO25CA5 PO; -IOHEXOL 180 MG/ML 10 ML VIAL. ONE; -methylPREDNISolone ACETATE 40 MG/ML VIAL. ONE; -methylPREDNISolone ACETATE 80 MG/ML VIAL. ONE
--- NOTE | 2018-10-25 17:55 | KCIC ---
Bilateral digital screening mammograms with 3-D tomosynthesis: Reason for examination: Routine screening. History of right breast cancer with lumpectomy and radiation therapy in 2013. Comparison is made to previous studies dated 01/05/2017 and 10/25/2015. Bilateral mammograms in CC and oblique projections were obtained with 2-D imaging and 3-D tomosynthesis imaging on a Siemens Inspiration unit and reviewed on the workstation. Interpretation was made with the benefit of CAD. The skin and nipples show no abnormalities. No abnormal axillary lymph nodes are seen. The breast parenchyma shows scattered fatty and fibroglandular density. (Breast density: Category B.) There are postop changes in the right breast with residual seroma. There is some increasing calcification along the anterior-inferior margin of the seroma which probably reflects fat necrosis. There are no new dominant masses, suspicious calcifications or architectural distortion. Benign calcifications are present. Impression: Postop changes in the right breast with residual seroma in the upper outer quadrant with increasing calcifications on the anterior-inferior surface of the seroma which probably reflects fat necrosis. No new sites of malignancy evident. Recommend routine mammographic follow-up. BI-RAD Category 2: Benign. "Our facility is accredited by the [employer] Mammography Program." This patient's information has been entered into a reminder system for the patient to be notified with the results of her examination and a target date for the next mammogram. Electronically signed by: Mayr Horn MD (10/25/2018 5:52 PM) [id number]
== END | disposition home or self-care (01) ==
LOC: KCIC MAMMO 13:31
PROVIDERS: ATTEND Internal Medicine Hematology & Oncology
DX: Z12.31 Encounter for screening mammogram for malignant neoplasm of breast (principal); N64.89 Other specified disorders of breast
CPT/HCPCS: 77063; 77067

== ENCOUNTER → 2018-12-08 | Outpatient (CLI) | payer BC, MEDICARE ==
[2014-04-03 15:15] VITALS: BP 126/72
[~2018-12-08] MED LIST changes: +IOHEXOL 180 MG/ML 10 ML VIAL. ONE; +methylPREDNISolone ACETATE 40 MG/ML VIAL. ONE; +methylPREDNISolone ACETATE 80 MG/ML VIAL. ONE
--- NOTE | 2018-12-08 20:36 | PAIN ---
DATE OF SERVICE: 12/08/2018 PROGRESS NOTE FOR PAIN CLINIC DIAGNOSES: Lumbar radiculopathy with lumbar spinal stenosis, lumbar degenerative disk disease. HISTORY OF PRESENT ILLNESS: The patient is a 68-year-old female who returns for followup status post lumbar epidural steroid injection x 1 back on 08/29/2018. The patient reports about 70% improvement, but the pain is returning now over the past few weeks in the low back and right lower extremity; significantly posterior gluteus, posterior thigh, posterior calf, worse with walking and standing, better with sitting or lying down. The patient reports it does not awaken her from sleep at night, sleeps about 8 hours at a time without significant difficulty, worse with standing and changing positions. The patient rates the pain is 7 on a scale of 10 at its worst over the past week, 4 on average, 2 at its least and is a 4 today. The patient reported tight, burning, stabbing, radiating into the low back and the bilateral lower extremities, much worse on the right side. The patient reports no new motor or sensory deficits, no new bowel or bladder incontinence or other complaints. PHYSICAL EXAMINATION: VITAL SIGNS: The patient's blood pressure 146/86, pulse 87, respirations 18, temperature 97.8 degrees Fahrenheit, height is 5 feet 1 inch, weight is 205 pounds. GENERAL: The patient is awake, alert, oriented, appropriate, very pleasant demeanor. HEENT: Head shows normocephalic, atraumatic. Extraocular movements are intact and symmetrical. Oral cavity: Mucous membranes moist and pink. Dentition is intact. NECK: Shows anterior throat supple without palpable lymphadenopathy noted. Swallow reflex symmetrical. CHEST: Shows normal on inspection. Breath sounds clear to auscultation bilaterally. HEART: Shows S1, S2 clear. No murmurs auscultated. ABDOMEN: Soft, nontender, nondistended. No palpable organomegaly is noted. No rebound or guarding demonstrated. BACK: Shows spine grossly in the midline. Normal appearing thoracic kyphosis and lumbar lordotic curvature. Lumbar paraspinous muscle shows symmetrical on inspection, on palpation some moderate tenderness diffusely bilaterally going diffusely without significant radiation. EXTREMITIES: The patient's lower extremities show deep tendon reflexes at 2+ in the patellar, 1+ tendo-calcaneus tendons. Motor exam is approximately 4 on a scale, 5 on the right with dorsiflexion and extension, 5/5 on the left. Peripheral pulses are 1+ posterior tibial. No peripheral edema is noted. Options were discussed with the patient. The patient's old chart was reviewed as her current medication regimen updated. Current review of systems updated today as well. We will proceed with a second in a series lumbar epidural steroid injection today with fluoroscopic guidance. Risks were again discussed including, but not limited to bleeding, infection, possibility of epidural hematoma, subsequent neurological compromise, dural puncture, headaches, spinal cord and/or nerve damage, side effects of steroid medication and poor results regarding pain control. The patient understands and wished to proceed. The patient will return to clinic in approximately 2 weeks for followup. She was counseled on return appointment, activity level and side effects to be aware of. DIAGNOSES: Lumbar radiculopathy with lumbar spinal stenosis, lumbar degenerative disk disease. PROCEDURE: Lumbar epidural steroid injection, translaminar approach at the L5-S1 level using C-arm fluoroscopic guidance under sterile prep and drape using local anesthetic. MEDICATION INJECTED: A total of 120 mg Depo-Medrol plus 10 mL of preservative-free normal saline and 2 mL of contrast. CONDITION AT DISCHARGE: Stable. The patient tolerated procedure well, had no complications. JEAN PIERRE CLIFTON MD DR: MARA/nts JOB#: [id number] / [id number]
== END ==
LOC: PNCL 08:00
PROVIDERS: ATTEND Anesthesiology
DX: M51.16 Intervertebral disc disorders with radiculopathy, lumbar region (principal); M48.061 Spinal stenosis, lumbar region without neurogenic claudication
CPT/HCPCS: 62323; J1030; J1040; Q9965

== ENCOUNTER 2018-12-13 19:08 | Emergency (ER) | payer BC, MEDICARE ==
[~2018-12-13] VITALS: Ht 154.9 cm; Wt 90.7 kg
[~2018-12-13 19:08] MED LIST changes: -IOHEXOL 180 MG/ML 10 ML VIAL. ONE; -methylPREDNISolone ACETATE 40 MG/ML VIAL. ONE; -methylPREDNISolone ACETATE 80 MG/ML VIAL. ONE
[2018-12-13 19:49] LABS: BILIRUBIN,URINE NEGATIVE (NEG); CLARITY,URINE CLEAR; COLOR,URINE YELLOW; NITRITE,URINE NEGATIVE (NEG); PROTEIN,URINE NEGATIVE (NEG-TRACE)
[2018-12-13 19:56] LABS: BACTERIA,URINE MANY /HPF (0-FEW); RBC,URINE OCC /HPF (0-2); WBC,URINE 20-40 /HPF (0-4)
[2018-12-13 19:57] LABS: HYALINE CASTS, URINE MODERATE /HPF; SQUAMOUS EPITHELIAL CELL,UR MOD /LPF
[2018-12-13 20:03] LABS: BASO # 0.1 x10^3/uL (0.0-0.2); BASO % 1 % (0-3); EOS # 0.2 x10^3/uL (0.0-0.7); EOS % 2 % (0-3); HEMATOCRIT 40.2 % (36.0-47.0); HEMOGLOBIN 13.6 g/dL (12.0-15.5); LYMPH # 2.7 x10^3/uL (1.0-4.8); LYMPH % 21 % (24-48); MEAN CORPUSCULAR HEMOGLOBIN 30 pg (25-35); MEAN CORPUSCULAR HGB CONC 34 g/dL (31-37); MEAN CORPUSCULAR VOLUME 88 fL (79-100); MONO % 8 % (0-9); NEUT # 9.3 x10^3/uL (1.8-7.7); NEUT % 70 % (31-73); PLATELET COUNT 508 x10^3/uL (140-400); RED BLOOD COUNT 4.56 x10^6/uL (3.50-5.40); RED CELL DISTRIBUTION WIDTH 12.2 % (11.5-14.5); WHITE BLOOD COUNT 13.4 x10^3/uL (4.0-11.0)
[2018-12-13 20:11] LABS: CALCIUM 9.3 mg/dL (8.5-10.1); CREATININE 1.3 mg/dL (0.6-1.0); GFR 40.7; POTASSIUM 4.2 mmol/L (3.5-5.1); PROTHROMBIN TIME PATIENT 12.1 SEC (11.7-14.0)
[2018-12-13 20:16] LABS: ALBUMIN 3.9 g/dL (3.4-5.0); TOTAL BILIRUBIN 0.3 mg/dL (0.2-1.0); TOTAL PROTEIN 7.9 g/dL (6.4-8.2)
--- NOTE | 2018-12-13 20:27 | RAD ---
CT scan of the head without contrast 12/13/2018 Clinical History: Blurred vision. Technique: Unenhanced, contiguous, 5 mm axial sections were obtained through the head. One or more of the following individualized dose reduction techniques were utilized for this study: 1. Automated exposure control. 2. Adjustment of the mA and/or kV according to patient size. 3. Use of iterative reconstruction technique. Findings: No previous studies are available for comparison. There is generalized parenchymal atrophy. Areas of decreased attenuation are seen within the periventricular and subcortical white matter of both cerebral hemispheres consistent with areas of small vessel ischemic disease. No acute parenchymal abnormality is seen. No extra-axial fluid collection is noted. No skull fracture is seen. Impression: No acute intracranial abnormality is seen. Electronically signed by: Jan Reece MD (12/13/2018 8:24 PM) [facility]
[2018-12-13 21:30] VITALS: BP 150/67
--- NOTE | 2018-12-13 21:37 | PHYS DOC ---
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 Patient states that the symptoms started today morning. Patient does not complaining of any other neurologic issues.. Patient states that she previously had similar symptoms but has not had these symptoms for quite sometime. Patient denies chest pain, [place] at, headache, fever, chills. Review of Systems Review of Systems Constitutional: Denies fever or chills [] Eyes: Brans or blurry vision HENT: Denies nasal congestion or sore throat [] Respiratory: Denies cough or shortness of breath [] Cardiovascular: Denies chest pain GI: Denies abdominal pain, nausea, vomiting, bloody stools or diarrhea [] : Denies dysuria or hematuria [] Musculoskeletal: Denies back pain or joint pain [] Neurologic: The brans or blurry vision All other systems were reviewed and found to be within normal limits, except as documented in this note. Allergies Allergies Allergies Coded Allergies Type Severity Reaction Last Updated Verified Sulfa (Sulfonamide Antibiotics) Allergy Severe Tongue Swelling 04/03/14 Yes Physical Exam Physical Exam Constitutional: Well developed, well nourished, no acute distress, non-toxic appearance. [] HENT: Normocephalic, atraumatic Eyes: PERRLA, EOMI, conjunctiva normal, no discharge. [] Neck: Normal range of motion, no tenderness, supple Cardiovascular:Heart rate regular rhythm, no murmur [] Lungs & Thorax: Bilateral breath sounds clear to auscultation [] Abdomen: Bowel sounds normal, soft, no tenderness Extremities: No tenderness, no cyanosis, no clubbing, ROM intact, no edema. [] Neurologic: Alert and oriented X 3, normal motor function, normal sensory function, blurry vision loss in both eyes Current Patient Data Vital Signs Vital Signs Date Time Temp Pulse Resp B/P (MAP) Pulse Ox O2 Delivery O2 Flow Rate FiO2 12/13/18 21:30 64 16 150/67 (94) 95 Room Air 12/13/18 19:18 97.6 97.6 Lab Values Laboratory Tests Test 12/13/18 19:20 12/13/18 19:55 Urine Collection Type Unknown Urine Color Yellow Urine Clarity Clear Urine pH 5.0 Urine Specific [place] 1.025 Urine Protein Negative mg/dL (NEG-TRACE) Urine Glucose (UA) Negative mg/dL (NEG) Urine Ketones (Stick) Negative mg/dL (NEG) Urine Blood Negative (NEG) Urine Nitrite Negative (NEG) Urine Bilirubin Negative (NEG) Urine Urobilinogen Dipstick 1.0 mg/dL (0.2 mg/dL) Urine Leukocyte Esterase Moderate (NEG) Urine RBC Occ /HPF (0-2) Urine WBC 20-40 /HPF (0-4) Urine Squamous Epithelial Cells Mod /LPF Urine Bacteria Many /HPF (0-FEW) Urine Hyaline Casts Moderate /HPF Urine Mucus Marked /LPF White Blood Count 13.4 x10^3/uL (4.0-11.0) H Red Blood Count 4.56 x10^6/uL (3.50-5.40) Hemoglobin 13.6 g/dL (12.0-15.5) Hematocrit 40.2 % (36.0-47.0) Mean Corpuscular Volume 88 fL (79-100) Mean Corpuscular Hemoglobin 30 pg (25-35) Mean Corpuscular Hemoglobin Concent 34 g/dL (31-37) Red Cell Distribution Width 12.2 % (11.5-14.5) Platelet Count 508 x10^3/uL (140-400) H Neutrophils (%) (Auto) 70 % (31-73) Lymphocytes (%) (Auto) 21 % (24-48) L Monocytes (%) (Auto) 8 % (0-9) Eosinophils (%) (Auto) 2 % (0-3) Basophils (%) (Auto) 1 % (0-3) Neutrophils # (Auto) 9.3 x10^3/uL (1.8-7.7) H Lymphocytes # (Auto) 2.7 x10^3/uL (1.0-4.8) Monocytes # (Auto) 1.0 x10^3/uL (0.0-1.1) Eosinophils # (Auto) 0.2 x10^3/uL (0.0-0.7) Basophils # (Auto) 0.1 x10^3/uL (0.0-0.2) Prothrombin Time 12.1 SEC (11.7-14.0) Prothrombin Time INR 0.9 (0.8-1.1) Sodium Level 137 mmol/L (136-145) Potassium Level 4.2 mmol/L (3.5-5.1) Chloride Level 99 mmol/L (98-107) Carbon Dioxide Level 27 mmol/L (21-32) Anion Gap 11 (6-14) Blood Urea Nitrogen 28 mg/dL (7-20) H Creatinine 1.3 mg/dL (0.6-1.0) H Estimated GFR (Cockcroft-Gault) 40.7 BUN/Creatinine Ratio 22 (6-20) H Glucose Level 215 mg/dL (70-99) H Calcium Level 9.3 mg/dL (8.5-10.1) Total Bilirubin 0.3 mg/dL (0.2-1.0) Aspartate Amino Transferase (AST) 15 U/L (15-37) Alanine Aminotransferase (ALT) 19 U/L (14-59) Alkaline Phosphatase 99 U/L (46-116) Total Protein 7.9 g/dL (6.4-8.2) Albumin 3.9 g/dL (3.4-5.0) Albumin/Globulin Ratio 1.0 (1.0-1.7) Laboratory Tests 12/13/18 19:55 Laboratory Tests 12/13/18 19:55 EKG EKG [] Radiology/Procedures Radiology/Procedures Ordered CT head without contrast Impressions: CT head without contrast shows no acute disease. Course & Med Decision Making Course & Med Decision Making Pertinent Labs and Imaging studies reviewed. (See chart for details) Ordered labs, CT head CT head shows no acute disease. Labs are within normal limits. Discussed results and plan of care patient and family. Patient states that she is comfortable to go home and follow-up to ophthalmology tomorrow. Discussed results and plan of care with patient. Patient is instructed to follow up with PCP in one to 2 days. Appropriate discharge instructions given to patient to return to the ED or to seek immediate medical evaluation. Dragon Disclaimer Dragon Disclaimer This electronic medical record was generated, in whole or in part, using a voice recognition dictation system. Departure Departure Impression: Primary Impression: Blurry vision, right eye Disposition: 01 HOME, SELF-CARE Condition: STABLE Referrals: ERWIN SMITH APRN (PCP) Additional Instructions: Appropriate discharge instructions given to patient to return to the ED or to seek immediate medical evaluation. Patient follow-up with PCP in one to 2 days. Patient instructed to return to ED if symptoms worsen or if any concerns KAREN GARCIA DO Dec 13, 2018 21:37
== END 2018-12-13 21:46 | disposition home or self-care (01) ==
LOC: ER 19:08
DX: H53.8 Other visual disturbances (principal); R51 Headache; E11.9 Type 2 diabetes mellitus without complications; E78.00 Pure hypercholesterolemia, unspecified; I10 Essential (primary) hypertension; Z88.2 Allergy status to sulfonamides
CPT/HCPCS: 36415; 70450; 80053; 81001; 85025; 85610; 87086; 99285-25

== ENCOUNTER → 2019-05-19 | Outpatient (CLI) | payer BC, MEDICARE ==
[~2019-05-19] MED LIST changes: +IOHEXOL 180 MG/ML 10 ML VIAL. ONE; -OMEP20CA10 PO; +OMEP20CA16 PO; +methylPREDNISolone ACETATE 40 MG/ML VIAL. ONE; +methylPREDNISolone ACETATE 80 MG/ML VIAL. ONE
--- NOTE | 2019-05-19 09:57 | PAIN ---
DATE OF SERVICE: 05/19/2019 PROGRESS NOTE FOR PAIN CLINIC DIAGNOSES: Lumbar radiculopathy with lumbar spinal stenosis, lumbar degenerative disk disease. HISTORY OF PRESENT ILLNESS: The patient is a 68-year-old female who returns for followup status post previous lumbar epidural steroid injection, last seen on 12/08/2018. The patient did very well with about 75% improvement after the injection for several months. The patient reports that pain has been returning now over the past 3 weeks, she has been increasing her activity with greater ease and comfort at home, initially walking greater distances, doing work activities, household activities. The pain has been returning now in the low back and right lower extremity, specifically in the posterior gluteus on the right side, posterior calf and into the thigh as well on the right side. The patient reports some on the left, but mainly on the right side. The patient describes it as burning, cramping, tight, radiating in the right leg with activity, better with sitting or lying down, generally does not awaken her from sleep at night, but over the last few weeks, it has. The patient reports it is 7 on a scale of 10 at its worst over the past week, 4 on average, 2 at the least and this is with lying down. The patient reports it is a 3 today. The patient reports no new motor or sensory deficits, no new bowel or bladder incontinence or other complaints. PHYSICAL EXAMINATION: VITAL SIGNS: The patient's blood pressure 121/78, pulse 79, respirations are 18, temperature 97.7 degrees Fahrenheit, height is 5 feet 1 inch, weight is 196 pounds. GENERAL: The patient is awake, alert, oriented, appropriate, very pleasant demeanor. HEENT: Exam shows normocephalic, atraumatic. Extraocular movements are intact and symmetrical. Oral cavity shows mucous membranes moist and pink. Dentition is intact. NECK: Shows anterior throat supple without palpable lymphadenopathy noted. Swallow reflex symmetrical. CHEST: Shows normal on inspection. Breath sounds clear to auscultation bilaterally. HEART: Shows S1, S2 clear. No murmurs auscultated. ABDOMEN: Soft, nontender, nondistended. No palpable organomegaly is noted. No rebound or guarding demonstrated. BACK: Shows spine grossly in the midline, normal-appearing cervical lordotic curvature, slight increase in thoracic kyphotic curvature and some normal lordotic curvature. Lumbar paraspinous muscle shows symmetrical on inspection, on palpation shows some moderate tenderness diffusely bilaterally, but only diffusely without significant radiation. The patient has good rotational motion of lumbar spine, both laterally as well as extension and flexion without difficulty. EXTREMITIES: Lower extremities show deep tendon reflexes 2+ in the patellar, 1+ tendo-calcaneus tendons. Motor exam is strong with 4 on a scale of 5 on the right and 5/5 on the left with dorsiflexion, extension, quadriceps and hamstring flexion. Peripheral pulses are 1+ posterior tibia. No peripheral edema is noted bilaterally. Options were discussed with the patient. The patient's old chart was reviewed as her current medication regimen updated. Current review of systems updated today as well. We will proceed with a lumbar epidural steroid injection today as first in this series with fluoroscopic guidance. Risks were again discussed including, but not limited to bleeding, infection, possibility of epidural hematoma, subsequent neurological compromise, dural puncture, headaches, spinal cord and/or nerve damage, side effects of steroid medication and poor results regarding pain control. The patient understands and wished to proceed. The patient will return to clinic in approximately 2 weeks for followup. She was counseled on return appointment, activity level and side effects to be aware of. DIAGNOSES: Lumbar radiculopathy with lumbar degenerative disk disease and lumbar spinal stenosis. PROCEDURE: Lumbar epidural steroid injection, translaminar approach at L5-S1 level using C-arm fluoroscopic guidance under sterile prep and drape using local anesthetic. MEDICATION INJECTED: A total of 120 mg Depo-Medrol plus 10 mL of preservative-free normal saline and 2 mL of contrast. CONDITION AT DISCHARGE: Stable. The patient tolerated procedure well, had no complications. JEAN PIERRE CLIFTON MD DR: MARA/gissel JOB#: [id number] / [id number]
== END ==
LOC: PNCL 08:07
PROVIDERS: ATTEND Anesthesiology
DX: M51.16 Intervertebral disc disorders with radiculopathy, lumbar region (principal); M48.061 Spinal stenosis, lumbar region without neurogenic claudication
CPT/HCPCS: 62323; J1030; J1040; Q9965

== ENCOUNTER → 2019-08-03 | Outpatient (CLI) | payer BC, OTHER ==
[~2019-08-03] MED LIST changes: -IOHEXOL 180 MG/ML 10 ML VIAL. ONE; +NIAC500T PO; -methylPREDNISolone ACETATE 40 MG/ML VIAL. ONE; -methylPREDNISolone ACETATE 80 MG/ML VIAL. ONE
--- NOTE | 2019-08-03 11:17 | PAIN ---
DATE OF SERVICE: 08/03/2019 PROGRESS NOTE FOR PAIN CLINIC DIAGNOSES: Lumbar radiculopathy with lumbar spinal stenosis, lumbar degenerative disk disease. HISTORY OF PRESENT ILLNESS: The patient is a 69-year-old female who returns status post lumbar epidural steroid injection x 1 that was 05/19/2019. The patient reports about 75% improvement after last injection, which lasted for about 2-1/2 months. The patient reports the pain returned over the past week or two, she was doing some work in her garden with tomato, she has had some pain down the low back and bilateral lower extremities, right greater than left, posterior gluteus, posterior thigh, posterior calf, radiating in a radicular pattern following an L5-S1 dermatomal distribution. The patient reports it is 7 on a scale of 10 at its worst over the past week, 5 on average, 3 at its least and is a 5 today. The patient reports it is sharp, burning, radiating and shooting into the lower extremities, again worse on the right than the left in the posterior hips, thighs and lower leg. The patient reports no loss of motor function. Initially, she was doing much better. She was generally walking greater distances, doing household activities, working activities at home, longstanding. Sleeping better at night. The patient reports it awakens her very often, but occasionally may. She is much better with sitting or lying down, worse with standing, bending, stooping, etc. The patient continues to do physical therapy exercises at home. She is doing stretching and strengthening exercises daily. Also, continues to walk daily, even though the pain is increasing and she does have some fatigability in the right leg compared to the left with walking, but she has continued to do this daily as well as stretching and strengthening exercises and physical therapy routines at home. The patient reports no new motor or sensory deficits, no new bowel or bladder incontinence or other complaints. PHYSICAL EXAMINATION: VITAL SIGNS: The patient's blood pressure 125/73, pulse 78, respirations 18, temperature is 97.8 degrees Fahrenheit, height is 5 feet 1 inch, weight is 196 pounds. GENERAL: The patient is awake, alert, oriented, appropriate, very pleasant demeanor. HEENT: Shows normocephalic, atraumatic. Extraocular movements are intact and symmetrical. Oral cavity: Mucous membranes moist and pink. Dentition is intact. NECK: Shows anterior throat supple without palpable lymphadenopathy noted. Swallow reflex symmetrical. CHEST: Shows normal on inspection. Breath sounds clear bilaterally. HEART: Shows S1, S2 clear. No murmurs auscultated. ABDOMEN: Soft, nontender, nondistended. No palpable organomegaly is noted. No rebound or guarding demonstrated. BACK: Shows spine grossly in the midline. Slight exaggeration of thoracic kyphosis with moderate flattening of lumbar lordotic curvature. Lumbar paraspinous muscle shows symmetrical on inspection, with palpation shows some moderate tenderness diffusely throughout the upper, middle and lower distribution of paraspinous muscles bilaterally, but only diffusely without significant radiation. The patient has good rotational motion of lumbar spine, both laterally as well as extension and flexion without significant increase in pain, no tenderness over the spinous processes, sacrum or sacroiliac regions. EXTREMITIES: Lower extremities show deep tendon reflexes 2+ in the patellar, 1+ tendo-calcaneus tendons. Motor exam is 4 on a scale of 5 on the right, 5/5 on the left with dorsiflexion, extension, quadriceps and hamstring flexion. Peripheral pulses are 1+ posterior tibia. No peripheral edema is noted bilaterally. Straight leg raise is noted to be positive on the right at about 35-40 degrees, decreased with knee flexion, left side is negative. Gaenslen's and Rogelio's maneuvers are negative bilaterally. The patient's peripheral pulses are 1+ posterior tibia. No peripheral edema is noted. PLAN: Options were discussed with the patient. The patient's old chart was reviewed as her current medication regimen updated. Current review of systems updated today as well and we will preauthorize the patient for lumbar epidural steroid injections. She is doing very well with these in the past for several months following the injections. She is also doing routine physical therapies and walking, stretching and strengthening exercises daily. She has tried pavd-[id number] analgesics as well, mostly Motrin or Aleve. She has tried Tylenol, none of these decrease the pain to a significant extent. We will try Medrol Dosepak in the meantime, we will have her return for a lumbar epidural steroid injection at L5-S1 level, translaminar approach for her clinical right greater than left L5-S1 dermatomal distribution radiculopathy. The patient was given instruction as well as side effects with the medication and will follow up as scheduled plan on lumbar epidural steroid injection on her return. JEAN PIERRE CLIFTON MD DR: MARA/gissel JOB#: [id number] / [id number]
== END | disposition home or self-care (01) ==
LOC: PNCL 08:26
PROVIDERS: ATTEND Anesthesiology
DX: M51.16 Intervertebral disc disorders with radiculopathy, lumbar region (principal); M48.061 Spinal stenosis, lumbar region without neurogenic claudication; Z98.890 Other specified postprocedural states; Z88.1 Allergy status to other antibiotic agents
CPT/HCPCS: G0463

== ENCOUNTER → 2019-08-17 | Outpatient (CLI) | payer BC, OTHER ==
[~2019-08-17] MED LIST changes: +IOHEXOL 180 MG/ML 10 ML VIAL. ONE; +methylPREDNISolone ACETATE 40 MG/ML VIAL. ONE; +methylPREDNISolone ACETATE 80 MG/ML VIAL. ONE
--- NOTE | 2019-08-18 02:47 | PAIN ---
DATE OF SERVICE: 08/17/2019 PROGRESS NOTE FOR PAIN CLINIC DIAGNOSES: Lumbar radiculopathy with lumbar degenerative disk disease and lumbar spinal stenosis. HISTORY OF PRESENT ILLNESS: The patient is a 69-year-old female, who returns for followup status post lumbar epidural steroid injections, last seen 08/03/2019. The patient had preauthorization and would like to proceed now. She did acquire that with her insurance provider. Prior to that, she had an injection on 05/18, did very well, about 75% improvement. Pain has returned in the low back and into the right greater than left lower extremity. The patient reports no new motor or sensory deficits, no new bowel or bladder incontinence, worse with walking, standing, changing positions, better with sitting or lying down, does not awaken her from sleep at night. The patient rates her pain as 7 on a scale of 10 at its worst over the past week, 4 on average, 2 at its least and is a 4 today. The patient reports it is sharp, burning, cramping, radiating in the lower extremities, posterior gluteus, posterior thighs, especially posterior calves, more on the right. The patient reports otherwise no new complaints. PHYSICAL EXAMINATION: VITAL SIGNS: The patient's blood pressure 111/72, pulse 79, respirations 18, temperature is 98.1 degrees Fahrenheit, weight is 192 pounds. GENERAL: The patient is awake, alert, oriented, appropriate, very pleasant demeanor. HEENT: Head shows normocephalic, atraumatic. Extraocular movements are intact and symmetrical. Oral cavity: Mucous membranes moist and pink. Dentition is intact. NECK: Shows anterior throat supple without palpable lymphadenopathy noted. Swallow reflex symmetrical. CHEST: Shows normal on inspection. Breath sounds clear to auscultation bilaterally. No rales, rhonchi or wheezes auscultated. HEART: Shows S1, S2 clear. No murmurs auscultated. ABDOMEN: Soft, nontender, nondistended. No palpable organomegaly is noted. No rebound or guarding demonstrated. BACK: Shows spine grossly in the midline. Normal appearing thoracic kyphosis, some minor flattening of lumbar lordotic curvature. Lumbar paraspinous muscle shows symmetrical on inspection, on palpation shows some moderate tenderness diffusely bilaterally, but only diffusely without significant radiation, without difficulty, worse with rotation greater than 10 degrees right and left as well as extension and flexion at 45 degrees forward and 10 degrees rearward without significant pain reported. EXTREMITIES: The patient's lower extremities show deep tendon reflexes at 2+ in the patellar and tendo calcaneus tendons are 1+. Motor exam is 4/5 on the right and 5/5 on the left dorsiflexion, extension, quadriceps and hamstring flexion, but symmetrical in quadriceps and hamstring flexion bilaterally. Peripheral pulses are 1+ posterior tibia. No peripheral edema is noted. Options were discussed with the patient. The patient's old chart was reviewed as her current medication regimen updated. Current review of systems updated today as well. We will proceed with a lumbar epidural steroid injection today with fluoroscopic guidance. Risks were discussed including but not limited to bleeding, infection, possibility of epidural hematoma, subsequent neurological compromise, dural puncture, headaches, spinal cord and/or nerve damage, side effects of steroid medication and poor results regarding pain control. The patient understands and wished to proceed. The patient will return to clinic in approximately 2 weeks for followup. She was counseled on return appointment, activity level and side effects to be aware of. DIAGNOSES: Lumbar radiculopathy with lumbar degenerative disk disease, lumbar spinal stenosis. PROCEDURE: Lumbar epidural steroid injection, translaminar approach L5-S1 level using C-arm fluoroscopic guidance under sterile prep and drape using local anesthetic. MEDICATION INJECTED: A total of 120 mg Depo-Medrol plus 10 mL of preservative-free normal saline and 2 mL of contrast. CONDITION AT DISCHARGE: Stable. The patient tolerated procedure well, had no complications. JEAN PIERRE CLIFTON MD DR: MARA/gissel JOB#: [id number] / [id number]
== END | disposition home or self-care (01) ==
LOC: PNCL 08:02
PROVIDERS: ATTEND Anesthesiology
DX: M51.16 Intervertebral disc disorders with radiculopathy, lumbar region (principal); M48.061 Spinal stenosis, lumbar region without neurogenic claudication; Z98.890 Other specified postprocedural states; Z88.1 Allergy status to other antibiotic agents
CPT/HCPCS: 62323; J1030; J1040; Q9965

== ENCOUNTER → 2019-11-03 | Outpatient (CLI) | payer OTHER ==
[~2019-11-03] MED LIST changes: -IOHEXOL 180 MG/ML 10 ML VIAL. ONE; -methylPREDNISolone ACETATE 40 MG/ML VIAL. ONE; -methylPREDNISolone ACETATE 80 MG/ML VIAL. ONE
--- NOTE | 2019-11-03 15:57 | KCIC ---
Bilateral digital screening mammograms with 3-D tomosynthesis: Reason for examination: Routine screening. History of right breast cancer with lumpectomy and radiation therapy. Comparison is made to previous studies dated back to 10/25/2015. Bilateral mammograms in CC and oblique projections were obtained with 2-D imaging and 3-D tomosynthesis imaging on a Siemens Inspiration unit and reviewed on the workstation. Interpretation was made with the benefit of CAD. The skin and nipples show no abnormalities. No abnormal axillary lymph nodes are seen. The breast parenchyma is predominantly fatty. (Breast density: Category A.) There continues to be a postop seroma in the 12:00 C position of the right breast which contains calcification. There are also scattered calcifications in the right breast parenchyma. There are no new dominant masses, suspicious calcifications or architectural distortion. Benign calcifications are present. Impression: Postop changes in the right breast. No evidence of new or recurrent malignancy. Recommend routine mammographic follow-up. BI-RAD Category 2: Benign. "Our facility is accredited by the [employer] Mammography Program." This patient's information has been entered into a reminder system for the patient to be notified with the results of her examination and a target date for the next mammogram. Electronically signed by: Mary Horn MD (11/03/2019 3:54 PM) [email or web address]
== END | disposition home or self-care (01) ==
LOC: KCIC MAMMO 13:01
PROVIDERS: ATTEND Internal Medicine Hematology & Oncology
DX: Z12.31 Encounter for screening mammogram for malignant neoplasm of breast (principal); N64.89 Other specified disorders of breast
CPT/HCPCS: 77063; 77067

== ENCOUNTER → 2020-11-04 | Outpatient (CLI) | payer OTHER ==
--- NOTE | 2020-11-04 16:12 | KCIC ---
Bilateral digital screening mammograms with 3-D tomosynthesis: Reason for examination: Routine screening. History of right breast cancer with lumpectomy. Comparison is made to previous studies dated back to 02/06/2014. Bilateral mammograms in CC and oblique projections were obtained with 2-D imaging and 3-D tomosynthes is imaging on a Siemens Inspiration unit and reviewed on the workstation. Interpretation was made wit h the benefit of CAD. The skin and nipples show no abnormalities. No abnormal axillary lymph nodes are seen. The breast par enchyma is predominantly fatty. (Breast density: Category A.) There are postop changes in the right b reast with residual seroma containing calcification. There are no new dominant masses, suspicious hortencia cifications or architectural distortion. Benign calcifications are present. Impression: Postop changes in the right breast. No evidence of new or recurrent malignancy. Recommend routine scr eening. BI-RAD Category 2: Benign. "Our facility is accredited by the [employer] Mammography Program." This patient's information has been entered into a reminder system for the patient to be notified wit h the results of her examination and a target date for the next mammogram. Electronically signed by: Mary Horn MD (11/04/2020 4:10 PM) [email or web address]
== END ==
LOC: KCIC MAMMO 13:26
PROVIDERS: ATTEND Internal Medicine Hematology & Oncology
DX: Z12.31 Encounter for screening mammogram for malignant neoplasm of breast (principal); Z98.890 Other specified postprocedural states
CPT/HCPCS: 77063; 77067

== ENCOUNTER 2020-12-06 18:49 | Inpatient (IN) | payer OTHER ==
[~2020-12-06] VITALS: Ht 154.9 cm; Wt 82.5 kg
--- NOTE | 2020-12-06 19:52 | PHYS DOC ---
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 She states the pain is sharp, has gotten more severe, and is preventing her from eating or doing activities of daily living. Denies radiation of pain. She didn't have pain at this before. The patient denies diarrhea, fever, chills, chest pain, shortness of breath, urinary symptoms, cough, recent trauma, or any other complaints. Review of Systems: Review of Systems: ROS otherwise negative except for what was mentioned in HPI Heart Score: C/O Chest Pain: No Allergies: Allergies: Allergies Coded Allergies Type Severity Reaction Last Updated Verified Sulfa (Sulfonamide Antibiotics) Allergy Severe Tongue Swelling 04/03/14 Yes Physical Exam: PE: Constitutional: No acute distress, non-toxic appearance. HENT: Atraumatic, bilateral external ears normal, nose normal. Eyes: PERRLA, EOMI, conjunctiva normal, no discharge. Neck: Normal range of motion, supple, no stridor. Cardiovascular: Heart rate regular rhythm. 2+ radial pulses Lungs & Thorax: No respiratory distress, symmetrical expansion. Bilateral breath sounds clear to auscultation Abdomen: Epigastric tenderness is noted, guarding present. Skin: Warm, dry. Extremities: No tenderness, no cyanosis, ROM intact, no edema. Neurologic: Alert and oriented X 3, normal motor function, normal sensory function, no focal deficits noted. GCS 15. Psychologic: Affect normal, judgment normal, mood normal. Current Patient Data: Labs: Laboratory Tests Test 12/06/20 20:10 12/06/20 21:45 White Blood Count 42.1 x10^3/uL (4.0-11.0) Red Blood Count 4.36 x10^6/uL (3.50-5.40) Hemoglobin 13.3 g/dL (12.0-15.5) Hematocrit 39.5 % (36.0-47.0) Mean Corpuscular Volume 91 fL (79-100) Mean Corpuscular Hemoglobin 31 pg (25-35) Mean Corpuscular Hemoglobin Concent 34 g/dL (31-37) Red Cell Distribution Width 13.6 % (11.5-14.5) Platelet Count 431 x10^3/uL (140-400) Neutrophils (%) (Auto) 93 % (31-73) Lymphocytes (%) (Auto) 1 % (24-48) Monocytes (%) (Auto) 5 % (0-9) Eosinophils (%) (Auto) 1 % (0-3) Basophils (%) (Auto) 0 % (0-3) Neutrophils # (Auto) 39.0 x10^3/uL (1.8-7.7) Lymphocytes # (Auto) 0.5 x10^3/uL (1.0-4.8) Monocytes # (Auto) 2.3 x10^3/uL (0.0-1.1) Eosinophils # (Auto) 0.3 x10^3/uL (0.0-0.7) Basophils # (Auto) 0.1 x10^3/uL (0.0-0.2) Segmented Neutrophils % 93 % (35-66) Band Neutrophils % 6 % (0-9) Lymphocytes % 1 % (24-48) Toxic Vacuolation Mod Platelet Estimate Increased (ADEQUATE) Sodium Level 131 mmol/L (136-145) Potassium Level 4.0 mmol/L (3.5-5.1) Chloride Level 94 mmol/L (98-107) Carbon Dioxide Level 25 mmol/L (21-32) Anion Gap 12 (6-14) Blood Urea Nitrogen 11 mg/dL (7-20) Creatinine 1.0 mg/dL (0.6-1.0) Estimated GFR (Cockcroft-Gault) 54.8 BUN/Creatinine Ratio 11 (6-20) Glucose Level 337 mg/dL (70-99) Calcium Level 9.6 mg/dL (8.5-10.1) Total Bilirubin 3.4 mg/dL (0.2-1.0) Aspartate Amino Transf (AST/SGOT) 202 U/L (15-37) Alanine Aminotransferase (ALT/SGPT) 166 U/L (14-59) Alkaline Phosphatase 198 U/L (46-116) Troponin I Quantitative < 0.017 ng/mL (0.000-0.055) PO-Cic-U-Type Natriuretic Peptide 1457 pg/mL (0-124) Total Protein 7.9 g/dL (6.4-8.2) Albumin 3.2 g/dL (3.4-5.0) Albumin/Globulin Ratio 0.7 (1.0-1.7) Lipase 37 U/L (73-393) Lactic Acid Level 1.5 mmol/L (0.4-2.0) Vital Signs: Vital Signs Date Time Temp Pulse Resp B/P (MAP) Pulse Ox O2 Delivery O2 Flow Rate FiO2 12/06/20 22:24 18 95 Room Air 12/06/20 20:29 22 97 Nasal Cannula 12/06/20 19:25 97.4 103 25 161/75 (103) 98 Room Air 97.4 Radiology/Procedures: Radiology/Procedures: PROCEDURE: ACUTE ABDOMEN SERIES Three-view acute abdominal series. HISTORY: Abdominal pain 3 views were taken for an acute abdominal series. There is arthritis in both shoulders. Heart is normal in size. There is no pleural effusion. There is no free air on the upright chest. Upright abdomen is limited. There are dilated loops of bowel including small bowel and colon. There is moderate stool in the right colon. An ileus is most likely, partial small bowel obstruction would be possible. There are degenerative and hypertrophic change in the lumbar spine. IMPRESSION: 1. Distention of the small bowel and right colon possible ileus. 2. Moderate stool right colon. 3. No free air noted. 4. No acute infiltrates. Electronically signed by: Artem Abbott MD (12/06/2020 9:08 PM) Exam: CT abdomen and pelvis with contrast INDICATION: Epigastric pain TECHNIQUE: Sequential axial images through the abdomen and pelvis obtained following the administration of 60 mL of Omni 300 IV contrast. Sagittal and coronal reformatted images were reconstructed from the axial data and reviewed. Exposure: One or more of the following in the visualized dose reduction techniques were utilized for this examination: 1. Automated exposure control 2. Adjustment of the MA and/or KV according to patient size 3. Use of iterative of reconstructive technique Comparisons: 03/29/2018 FINDINGS: Heart size is normal. No pericardial effusion. Strandy opacities at dependent portion lungs likely representing atelectasis. No pleural effusion. Liver, spleen, pancreas and adrenals are unremarkable. Gallbladder is distended with adjacent fat stranding. No perinephric inflammation or hydronephrosis. No renal or ureteral calculi are identified. Bladder is partially distended and not well evaluated. Uterus not enlarged. No abnormal adnexal mass. Diverticulosis noted at the sigmoid colon without evidence of acute diverticulitis. Remainder of the large and small bowel are unremarkable. Appendix is nonidentified. No free intra-abdominal air or fluid. No obstruction. Abdominal aorta has a normal course and caliber. Abdominal vasculature is patent. No enlarged intra-abdominal lymph nodes are identified. No suspicious osseous lesions or acute fractures. IMPRESSION: Findings favored to represent acute cholecystitis. Correlate with symptomatology to determine the need for further imaging. Electronically signed by: Harriett Mckeon MD (12/06/2020 9:35 PM) Course & Med Decision Making: Course & Med Decision Making Patient with evidence for acute cholecystitis, ultrasound was ordered and is pending. I discussed the case with general surgery staff Dr. Kee, will see the patient in the morning as a consult. Zosyn was given in the emergency department. Patient was made n.p.o. pain is well controlled. Patient was admitted to the telemetry floor due to tachycardia, findings of acute cholecystitis. Departure Departure Impression: Primary Impression: Cholecystitis Disposition: ADMITTED INPATIENT Admitting Physician: ARETHA Condition: STABLE (Riffel) Referrals: ERWIN SMITH APRN (PCP) GHASSAN JONES DO Dec 06, 2020 19:52
[2020-12-06 20:19] LABS: BASO # 0.1 x10^3/uL (0.0-0.2); BASO % 0 % (0-3); EOS # 0.3 x10^3/uL (0.0-0.7); EOS % 1 % (0-3); HEMATOCRIT 39.5 % (36.0-47.0); HEMOGLOBIN 13.3 g/dL (12.0-15.5); LYMPH # 0.5 x10^3/uL (1.0-4.8); LYMPH % 1 % (24-48); MEAN CORPUSCULAR HEMOGLOBIN 31 pg (25-35); MEAN CORPUSCULAR HGB CONC 34 g/dL (31-37); MEAN CORPUSCULAR VOLUME 91 fL (79-100); MONO # 2.3 x10^3/uL (0.0-1.1); MONO % 5 % (0-9); NEUT % 93 % (31-73); PLATELET COUNT 431 x10^3/uL (140-400); RED BLOOD COUNT 4.36 x10^6/uL (3.50-5.40); RED CELL DISTRIBUTION WIDTH 13.6 % (11.5-14.5)
[2020-12-06 20:25] LABS: CALCIUM 9.6 mg/dL (8.5-10.1); GFR 54.8; WHITE BLOOD COUNT 42.1 x10^3/uL (4.0-11.0)
[2020-12-06] MEDS ORDERED: ONDANSETRON PF 4 MG/2 ML VIAL. IVP ONE (20:30)
[2020-12-06] MEDS ORDERED: MORPHINE SULFATE 4 MG/ML INJ. IVP ONE (20:30)
[2020-12-06 20:31] LABS: ALBUMIN 3.2 g/dL (3.4-5.0); ALBUMIN/GLOBULIN RATIO 0.7 (1.0-1.7); TOTAL BILIRUBIN 3.4 mg/dL (0.2-1.0); TOTAL PROTEIN 7.9 g/dL (6.4-8.2)
[2020-12-06 20:38] LABS: % BANDS 6 % (0-9); % LYMPHS 1 % (24-48); % SEGS 93 % (35-66)
[2020-12-06 20:39] LABS: PLT ESTIMATE INCREASED (ADEQUATE)
[2020-12-06 20:41] LABS: TOXIC VACUOLATION MOD
[2020-12-06] MEDS ORDERED: IOHEXOL 300 MG/ML 100ML VIAL. IV ONE (21:00)
--- NOTE | 2020-12-06 21:10 | RAD ---
Three-view acute abdominal series. HISTORY: Abdominal pain 3 views were taken for an acute abdominal series. There is arthritis in both shoulders. Heart is norm al in size. There is no pleural effusion. There is no free air on the upright chest. Upright abdomen is limited. There are dilated loops of bow el including small bowel and colon. There is moderate stool in the right colon. An ileus is most like ly, partial small bowel obstruction would be possible. There are degenerative and hypertrophic change in the lumbar spine. IMPRESSION: 1. Distention of the small bowel and right colon possible ileus. 2. Moderate stool right colon. 3. No free air noted. 4. No acute infiltrates. Electronically signed by: Artem Abbott MD (12/06/2020 9:08 PM) [facility]
[2020-12-06] MEDS ORDERED: CONTRAST GIVEN. MC PRN (21:15)
--- NOTE | 2020-12-06 21:38 | RAD ---
Exam: CT abdomen and pelvis with contrast INDICATION: Epigastric pain TECHNIQUE: Sequential axial images through the abdomen and pelvis obtained following the administrati on of 60 mL of Omni 300 IV contrast. Sagittal and coronal reformatted images were reconstructed from the axial data and reviewed. Exposure: One or more of the following in the visualized dose reduction techniques were utilized for this examination: 1. Automated exposure control 2. Adjustment of the MA and/or KV according to patient size 3. Use of iterative of reconstructive technique Comparisons: 03/29/2018 FINDINGS: Heart size is normal. No pericardial effusion. Strandy opacities at dependent portion lungs likely re presenting atelectasis. No pleural effusion. Liver, spleen, pancreas and adrenals are unremarkable. Gallbladder is distended with adjacent fat str anding. No perinephric inflammation or hydronephrosis. No renal or ureteral calculi are identified. Bladder is partially distended and not well evaluated. Uterus not enlarged. No abnormal adnexal mass. Diverticulosis noted at the sigmoid colon without evidence of acute diverticulitis. Remainder of the large and small bowel are unremarkable. Appendix is nonidentified. No free intra-abdominal air or flu id. No obstruction. Abdominal aorta has a normal course and caliber. Abdominal vasculature is patent. No enlarged intra-abdominal lymph nodes are identified. No suspicious osseous lesions or acute fractures. IMPRESSION: Findings favored to represent acute cholecystitis. Correlate with symptomatology to determine the nee d for further imaging. Electronically signed by: Harriett Mckeon MD (12/06/2020 9:35 PM) [facility]
[2020-12-06] MEDS ORDERED: PIPERACILLIN/TAZOBACTAM 3.375 GM in IV NORMAL SALINE 50ML 50 ML IV ONE (22:00)
[2020-12-06] MEDS: IV NORMAL SALINE 1000ML BAG 1,000 ML IV SCH (22:22)
[2020-12-06] MEDS: MORPHINE SULFATE 4 MG/ML INJ. IVP PRN (22:24)
[2020-12-06 23:20] LABS: BILIRUBIN,URINE MODERATE (NEG); CLARITY,URINE CLEAR; NITRITE,URINE NEGATIVE (NEG); PROTEIN,URINE 100 mg/dL (NEG-TRACE)
[2020-12-06 23:27] LABS: BACTERIA,URINE FEW /HPF (0-FEW); COLOR,URINE YELLOW; RBC,URINE 0 /HPF (0-2)
[2020-12-06 23:28] LABS: AMORPHOUS SEDIMENT,UR PRESENT /HPF
[2020-12-07] VITALS (8 sets, daily range): BP systolic 99–152; BP diastolic 51–71
--- NOTE | 2020-12-07 | NUR ---
Patient brought to floor per this commercial underwriter and ux designer, per wheelchair, belongings with her, plan of care discussed, pt's belongings are documented, she declines to have security lock up purse and wallet, stating she will keep them in her bed with her. says left her hearing aids and upper and lower partials at home,
[2020-12-07] MEDS ORDERED: januvia (00:16)
[2020-12-07] MEDS ORDERED: LIP (00:18)
[2020-12-07] MEDS ORDERED: lipitor (00:18)
[2020-12-07] MEDS: MORPHINE SULFATE 4 MG/ML INJ. IVP PRN ×4 (01:09→13:35)
[2020-12-07] MEDS ORDERED: CALCIUM CARBONATE 500 MG TAB.CHEW PO PRN (06:30)
[2020-12-07] MEDS ORDERED: LABETALOL 20 MG/4 ML DISP.SYRIN. IVP PRN (06:30)
[2020-12-07] MEDS ORDERED: hydrALAZINE 20 MG/ML VIAL. IVP PRN (06:30)
[2020-12-07] MEDS ORDERED: DEXTROSE 50% 25 GM / 50ML DISP.SYRIN. IV PRN (06:30)
[2020-12-07] MEDS ORDERED: MAG HYDROX/ALUMINUM HYD/SIMETH 30 ML ORAL.SUSP PO PRN (06:30)
[2020-12-07] MEDS ORDERED: ONDANSETRON PF 4 MG/2 ML VIAL. IVP PRN (06:30)
[2020-12-07] MEDS ORDERED: MAGNESIUM HYDROXIDE 2,400 MG/30 ML ORAL.SUSP. PO PRN (06:30)
--- NOTE | 2020-12-07 06:41 | PDOC1 ---
History and Physical Date of Admission Date of Admission DATE: 12/07/20 TIME: 06:31 Identification/Chief Complaint Chief Complaint Abdominal pain Source Source: Chart review, Patient History of Present Illness History of Present Illness 70-year-old female with past medical history DM2, HTN, right breast cancer, who presents to the ED with complaints of worsening epigastric pain for the past 3 days. She reports sharp pain, 7/10, that is aggravated by deep inspiration. Associated nausea, vomiting, and anorexia. She denies any fever, diarrhea, shortness of breath, or recent injury. In the ED labs showed WBC 42.1, platelets 431, CBG 337, AST 202, ALT 166, alkaline phos 148, BNP 1457, troponin <0.017, lactic acid 1.5, albumin 3.2. She received broad-spectrum antibiotics and IV fluids. CT abdomen/pelvis showed findings favored to represent acute cholecystitis. She received broad-spectrum antibiotics and IV fluids. She has been fully vaccinated against COVID-19. She will be admitted with general surgery consultation. Past Medical History Past Medical History DM2, HLD, HTN, right breast cancer, seasonal allergies, cardiac arrhythmia Past Surgical History Past Surgical History Appendectomy, tonsillectomy, right 2nd toe amputation, left bone graft, right lumpectomy Social History Smoke: No ALCOHOL: occassional Drugs: None Current Medications Current Medications Current Medications Morphine Sulfate (Morphine Sulfate) 4 mg 1X ONCE IVP Last administered on 12/06/20at 20:29; Start 12/06/20 at 20:30; Stop 12/06/20 at 20:31; Status DC Ondansetron HCl (Zofran) 4 mg 1X ONCE IVP Last administered on 12/06/20at 20:29; Start 12/06/20 at 20:30; Stop 12/06/20 at 20:31; Status DC Levofloxacin/ Dextrose 150 ml @ 100 mls/hr 1X ONCE IV Last administered on 12/06/20at 22:24; Start 12/06/20 at 21:00; Stop 12/06/20 at 22:29; Status DC Iohexol (Omnipaque 300 Mg/ml) 60 ml 1X ONCE IV Last administered on 12/06/20at 21:27; Start 12/06/20 at 21:00; Stop 12/06/20 at 21:01; Status DC Info (CONTRAST GIVEN -- Rx MONITORING) 1 each PRN DAILY PRN MC SEE COMMENTS; Start 12/06/20 at 21:15; Stop 12/08/20 at 21:14 Piperacillin Sod/ Tazobactam Sod 3.375 gm/Sodium Chloride 50 ml @ 100 mls/hr 1X ONCE IV Last administered on 12/07/20at 00:49; Start 12/06/20 at 22:00; Stop 12/06/20 at 22:29; Status DC Morphine Sulfate (Morphine Sulfate) 4 mg PRN Q2HR PRN IVP PAIN Last administered on 12/07/20at 06:28; Start 12/06/20 at 22:15; Stop 12/07/20 at 22:14 Sodium Chloride 1,000 ml @ 100 mls/hr Q10H IV Last administered on 12/06/20at 22:22; Start 12/06/20 at 22:15; Stop 12/07/20 at 22:14 Ondansetron HCl (Zofran) 4 mg PRN Q6HRS PRN IVP NAUSEA/VOMITING; Start 12/07/20 at 06:30 Al Hydroxide/Mg Hydroxide (Mylanta Plus Xs) 30 ml PRN Q3HRS PRN PO HEARTBURN / GAS; Start 12/07/20 at 06:30 Calcium Carbonate/ Glycine (Tums) 500 mg PRN Q3HRS PRN PO UPSET STOMACH; Start 12/07/20 at 06:30 Zolpidem Tartrate (Ambien) 5 mg PRN QHS PRN PO INSOMNIA, MAY REPEAT IN 1HR; Start 12/07/20 at 06:30 Acetaminophen (Tylenol) 650 mg PRN Q6HRS PRN PO Headaches, Temp > 101.5F; Start 12/07/20 at 06:30 Magnesium Hydroxide (Milk Of Magnesia) 2,400 mg PRN Q12HR PRN PO CONSTIPATION; Start 12/07/20 at 06:30 Heparin Sodium (Porcine) (Heparin Sodium) 5,000 unit Q8HRS SQ ; Start 12/07/20 at 14:00 Losartan Potassium (Cozaar) 50 mg DAILY PO ; Start 12/07/20 at 09:00 Non-Formulary Medication (Alendronate Sodium (Fosamax)) 70 mg WEEKLY PO ; Start 12/07/20 at 09:00; Status UNV Acetaminophen/ Butalbital/ Caffeine (Fioricet) 1 tab PRN TID PRN PO MIGRAINE HEADACHE; Start 12/07/20 at 06:45 Diltiazem HCl (Cardizem 24hr Cd) 240 mg BID PO ; Start 12/07/20 at 09:00 Hydralazine HCl (Apresoline Inj) 10 mg PRN Q4HRS PRN IVP ELEVATED BP, SEE COMMENTS; Start 12/07/20 at 06:30 Labetalol HCl (Normodyne Iv Push) 20 mg PRN Q4HRS PRN IVP HYPERTENSION; Start 12/07/20 at 06:30; Status UNV Insulin Glargine (Lantus Syringe) 15 unit QHS SQ ; Start 12/07/20 at 21:00; Status UNV Insulin Human Lispro (HumaLOG) 5 units TIDWMEALS SQ ; Start 12/07/20 at 08:00; Status UNV Dextrose (Dextrose 50%-Water Syringe) 12.5 gm PRN Q15MIN PRN IV SEE COMMENTS; Start 12/07/20 at 06:30; Status UNV Active Scripts Active Reported [lipitor] [januvia] Fish Oil 1,000 Mg Capsule ([place]-3 Fatty Acids/Fish Oil) 1 Each Capsule 1 Each PO BID Ambien (Zolpidem Tartrate) 5 Mg Tablet 5 Mg PO HS PRN Fosamax (Alendronate Sodium) 70 Mg Tablet 70 Mg PO WEEKLY Losartan Potassium 50 Mg Tablet 50 Mg PO DAILY Multi Vitamin Daily (Multivitamin) 1 Each Tablet 1 Each PO DAILY Fiorinal 50-325-40 Mg Capsule (Butalbital/Aspirin/Caffeine) 1 Each Capsule 1 Each PO PRN TID PRN Metformin Hcl 1,000 Mg Tablet 1,000 Mg PO BIDWMEALS Zyrtec (Cetirizine Hcl) 10 Mg Capsule 10 Mg PO DAILY Diltiazem Er (Diltiazem Hcl) 240 Mg Cap.er.deg 240 Mg PO BID Allergies Allergies: Coded Allergies: Sulfa (Sulfonamide Antibiotics) (Verified Allergy, Severe, Tongue Swelling, 04/03/14) hydrocodone (Verified Adverse Reaction, Intermediate, 12/07/20) talks to people who aren't present in room oxycodone (Verified Adverse Reaction, Intermediate, 12/07/20) talks to people who are not in the room ROS Review of System GENERAL: No history of weight change, weakness or fevers. SKIN: No bruising, hair changes or rashes. EYES: No blurred, double or loss of vision. NOSE AND THROAT: No history of nosebleeds, hoarseness or sore throat. HEART: Denies chest pain, denies palpitations. LUNGS: Denies cough, hemoptysis, wheezing or shortness of breath. GASTROINTESTINAL: Nausea, vomiting, abdominal pain. GENITOURINARY: Denies dysuria, frequency, urgency, hematuria. NEUROLOGIC: Denies history of numbness, tingling, tremor or weakness. PSYCHIATRIC: Denies anxiety, denies depression. ENDOCRINE: No history of heat or cold intolerance, polyuria or polydipsia. EXTREMITIES: Denies muscle weakness, joint pain, pain on walking or stiffness. Physical Exam Physical Exam General: Alert, Oriented X3, Cooperative, mild distress. HEENT: PERRLA, EOMI Lungs: Clear to auscultation, Normal air movement Heart: RRR, no murmurs Cardiovascular: S1, S2 Abdomen: Right upper quadrant tenderness, normal bowel sounds, soft. Extremities: No clubbing, No cyanosis Skin: No rashes, No significant lesion Neuro: Normal speech, Normal tone, Sensation intact Psych/Mental Status: Mental status NL, Mood NL Vitals Vitals Vital Signs Date Time Temp Pulse Resp B/P (MAP) Pulse Ox O2 Delivery O2 Flow Rate FiO2 12/07/20 06:28 20 Room Air 12/07/20 03:00 98.4 92 128/69 (88) 91 98.4 Labs Labs Laboratory Tests Test 12/06/20 20:10 12/06/20 21:45 12/06/20 23:12 12/06/20 23:15 White Blood Count 42.1 x10^3/uL (4.0-11.0) Red Blood Count 4.36 x10^6/uL (3.50-5.40) Hemoglobin 13.3 g/dL (12.0-15.5) Hematocrit 39.5 % (36.0-47.0) Mean Corpuscular Volume 91 fL (79-100) Mean Corpuscular Hemoglobin 31 pg (25-35) Mean Corpuscular Hemoglobin Concent 34 g/dL (31-37) Red Cell Distribution Width 13.6 % (11.5-14.5) Platelet Count 431 x10^3/uL (140-400) Neutrophils (%) (Auto) 93 % (31-73) Lymphocytes (%) (Auto) 1 % (24-48) Monocytes (%) (Auto) 5 % (0-9) Eosinophils (%) (Auto) 1 % (0-3) Basophils (%) (Auto) 0 % (0-3) Neutrophils # (Auto) 39.0 x10^3/uL (1.8-7.7) Lymphocytes # (Auto) 0.5 x10^3/uL (1.0-4.8) Monocytes # (Auto) 2.3 x10^3/uL (0.0-1.1) Eosinophils # (Auto) 0.3 x10^3/uL (0.0-0.7) Basophils # (Auto) 0.1 x10^3/uL (0.0-0.2) Segmented Neutrophils % 93 % (35-66) Band Neutrophils % 6 % (0-9) Lymphocytes % 1 % (24-48) Toxic Vacuolation Mod Platelet Estimate Increased (ADEQUATE) Sodium Level 131 mmol/L (136-145) Potassium Level 4.0 mmol/L (3.5-5.1) Chloride Level 94 mmol/L (98-107) Carbon Dioxide Level 25 mmol/L (21-32) Anion Gap 12 (6-14) Blood Urea Nitrogen 11 mg/dL (7-20) Creatinine 1.0 mg/dL (0.6-1.0) Estimated GFR (Cockcroft-Gault) 54.8 BUN/Creatinine Ratio 11 (6-20) Glucose Level 337 mg/dL (70-99) Calcium Level 9.6 mg/dL (8.5-10.1) Total Bilirubin 3.4 mg/dL (0.2-1.0) Aspartate Amino Transf (AST/SGOT) 202 U/L (15-37) Alanine Aminotransferase (ALT/SGPT) 166 U/L (14-59) Alkaline Phosphatase 198 U/L (46-116) Troponin I Quantitative < 0.017 ng/mL (0.000-0.055) NA-Gcz-U-Type Natriuretic Peptide 1457 pg/mL (0-124) Total Protein 7.9 g/dL (6.4-8.2) Albumin 3.2 g/dL (3.4-5.0) Albumin/Globulin Ratio 0.7 (1.0-1.7) Lipase 37 U/L (73-393) Lactic Acid Level 1.5 mmol/L (0.4-2.0) Urine Collection Type Void Urine Color Yellow Urine Clarity Clear Urine pH 6.0 (<5.0-8.0) Urine Specific [place] >=1.030 (1.000-1.030) Urine Protein 100 mg/dL (NEG-TRACE) Urine Glucose (UA) >=1000 mg/dL (NEG) Urine Ketones (Stick) 15 mg/dL (NEG) Urine Blood Negative (NEG) Urine Nitrite Negative (NEG) Urine Bilirubin Moderate (NEG) Urine Urobilinogen Dipstick 4.0 mg/dL (0.2 mg/dL) Urine Leukocyte Esterase Negative (NEG) Urine RBC 0 /HPF (0-2) Urine WBC 1-4 /HPF (0-4) Urine Squamous Epithelial Cells Few /LPF Urine Amorphous Sediment Present /HPF Urine Bacteria Few /HPF (0-FEW) Urine Mucus Slight /LPF SARS-CoV-2 Antigen (Rapid) Negative (NEGATIVE) Laboratory Tests Test 12/06/20 20:10 12/06/20 21:45 12/06/20 23:12 12/06/20 23:15 White Blood Count 42.1 x10^3/uL (4.0-11.0) Red Blood Count 4.36 x10^6/uL (3.50-5.40) Hemoglobin 13.3 g/dL (12.0-15.5) Hematocrit 39.5 % (36.0-47.0) Mean Corpuscular Volume 91 fL (79-100) Mean Corpuscular Hemoglobin 31 pg (25-35) Mean Corpuscular Hemoglobin Concent 34 g/dL (31-37) Red Cell Distribution Width 13.6 % (11.5-14.5) Platelet Count 431 x10^3/uL (140-400) Neutrophils (%) (Auto) 93 % (31-73) Lymphocytes (%) (Auto) 1 % (24-48) Monocytes (%) (Auto) 5 % (0-9) Eosinophils (%) (Auto) 1 % (0-3) Basophils (%) (Auto) 0 % (0-3) Neutrophils # (Auto) 39.0 x10^3/uL (1.8-7.7) Lymphocytes # (Auto) 0.5 x10^3/uL (1.0-4.8) Monocytes # (Auto) 2.3 x10^3/uL (0.0-1.1) Eosinophils # (Auto) 0.3 x10^3/uL (0.0-0.7) Basophils # (Auto) 0.1 x10^3/uL (0.0-0.2) Segmented Neutrophils % 93 % (35-66) Band Neutrophils % 6 % (0-9) Lymphocytes % 1 % (24-48) Toxic Vacuolation Mod Platelet Estimate Increased (ADEQUATE) Sodium Level 131 mmol/L (136-145) Potassium Level 4.0 mmol/L (3.5-5.1) Chloride Level 94 mmol/L (98-107) Carbon Dioxide Level 25 mmol/L (21-32) Anion Gap 12 (6-14) Blood Urea Nitrogen 11 mg/dL (7-20) Creatinine 1.0 mg/dL (0.6-1.0) Estimated GFR (Cockcroft-Gault) 54.8 BUN/Creatinine Ratio 11 (6-20) Glucose Level 337 mg/dL (70-99) Calcium Level 9.6 mg/dL (8.5-10.1) Total Bilirubin 3.4 mg/dL (0.2-1.0) Aspartate Amino Transf (AST/SGOT) 202 U/L (15-37) Alanine Aminotransferase (ALT/SGPT) 166 U/L (14-59) Alkaline Phosphatase 198 U/L (46-116) Troponin I Quantitative < 0.017 ng/mL (0.000-0.055) JM-Idm-U-Type Natriuretic Peptide 1457 pg/mL (0-124) Total Protein 7.9 g/dL (6.4-8.2) Albumin 3.2 g/dL (3.4-5.0) Albumin/Globulin Ratio 0.7 (1.0-1.7) Lipase 37 U/L (73-393) Lactic Acid Level 1.5 mmol/L (0.4-2.0) Urine Collection Type Void Urine Color Yellow Urine Clarity Clear Urine pH 6.0 (<5.0-8.0) Urine Specific [place] >=1.030 (1.000-1.030) Urine Protein 100 mg/dL (NEG-TRACE) Urine Glucose (UA) >=1000 mg/dL (NEG) Urine Ketones (Stick) 15 mg/dL (NEG) Urine Blood Negative (NEG) Urine Nitrite Negative (NEG) Urine Bilirubin Moderate (NEG) Urine Urobilinogen Dipstick 4.0 mg/dL (0.2 mg/dL) Urine Leukocyte Esterase Negative (NEG) Urine RBC 0 /HPF (0-2) Urine WBC 1-4 /HPF (0-4) Urine Squamous Epithelial Cells Few /LPF Urine Amorphous Sediment Present /HPF Urine Bacteria Few /HPF (0-FEW) Urine Mucus Slight /LPF SARS-CoV-2 Antigen (Rapid) Negative (NEGATIVE) Images Images Radiology/Procedures: PROCEDURE: ACUTE ABDOMEN SERIES Three-view acute abdominal series. HISTORY: Abdominal pain 3 views were taken for an acute abdominal series. There is arthritis in both shoulders. Heart is normal in size. There is no pleural effusion. There is no free air on the upright chest. Upright abdomen is limited. There are dilated loops of bowel including small bowel and colon. There is moderate stool in the right colon. An ileus is most likely, partial small bowel obstruction would be possible. There are degenerative and hypertrophic change in the lumbar spine. IMPRESSION: 1. Distention of the small bowel and right colon possible ileus. 2. Moderate stool right colon. 3. No free air noted. 4. No acute infiltrates. Electronically signed by: Artem Abbott MD (12/06/2020 9:08 PM) Exam: CT abdomen and pelvis with contrast INDICATION: Epigastric pain TECHNIQUE: Sequential axial images through the abdomen and pelvis obtained following the administration of 60 mL of Omni 300 IV contrast. Sagittal and coronal reformatted images were reconstructed from the axial data and reviewed. Exposure: One or more of the following in the visualized dose reduction techniques were utilized for this examination: 1. Automated exposure control 2. Adjustment of the MA and/or KV according to patient size 3. Use of iterative of reconstructive technique Comparisons: 03/29/2018 FINDINGS: Heart size is normal. No pericardial effusion. Strandy opacities at dependent portion lungs likely representing atelectasis. No pleural effusion. Liver, spleen, pancreas and adrenals are unremarkable. Gallbladder is distended with adjacent fat stranding. No perinephric inflammation or hydronephrosis. No renal or ureteral calculi are identified. Bladder is partially distended and not well evaluated. Uterus not enlarged. No abnormal adnexal mass. Diverticulosis noted at the sigmoid colon without evidence of acute diverticulitis. Remainder of the large and small bowel are unremarkable. Appendix is nonidentified. No free intra-abdominal air or fluid. No obstruction. Abdominal aorta has a normal course and caliber. Abdominal vasculature is patent. No enlarged intra-abdominal lymph nodes are identified. No suspicious osseous lesions or acute fractures. IMPRESSION: Findings favored to represent acute cholecystitis. Correlate with symptomatology to determine the need for further imaging. VTE Prophylaxis Ordered VTE Prophylaxis Devices: No VTE Pharmacological Prophylaxi: Yes Assessment/Plan Assessment/Plan Acute cholecystitis SIRS DM2 with hyperglycemia Transaminitis HTN HLD Cardiac arrhythmia History of right breast cancer Plan: Consultation placed to general surgery Abdominal ultrasound pending We will continue treatment with IV Zosyn Anticipate surgical intervention today or in the near future; will keep patient n.p.o. until seen by general surgery. Provide IV pain management, and antiemetics. IV fluids Basal/prandial insulin Resume home medications; denies any history of atrial fibrillation, but does state that she takes diltiazem for years for HTN/cardiac arrhythmia. FEN - NPO; then ADA diet. PPX - Heparin FULL CODE Dispo - inpatient for above Patient names Lora Raymond as her surrogate decision-maker Justifications for Admission General Conditions Other justification for admit: Acute cholecystitis Other Justification COLEEN HEMPHILL MD Dec 07, 2020 06:41
[2020-12-07] MEDS ORDERED: PIP/TAZO PER PHARMACY MC PRN (07:00)
[2020-12-07 07:36] LABS: BASO % 0 % (0-3); EOS % 0 % (0-3); HEMATOCRIT 38.4 % (36.0-47.0); HEMOGLOBIN 12.5 g/dL (12.0-15.5); LYMPH # 0.6 x10^3/uL (1.0-4.8); LYMPH % 2 % (24-48); MEAN CORPUSCULAR HEMOGLOBIN 30 pg (25-35); MEAN CORPUSCULAR HGB CONC 33 g/dL (31-37); MEAN CORPUSCULAR VOLUME 92 fL (79-100); MONO # 1.6 x10^3/uL (0.0-1.1); MONO % 4 % (0-9); NEUT # 36.5 x10^3/uL (1.8-7.7); NEUT % 94 % (31-73); PLATELET COUNT 415 x10^3/uL (140-400); RED BLOOD COUNT 4.17 x10^6/uL (3.50-5.40); RED CELL DISTRIBUTION WIDTH 13.3 % (11.5-14.5); WHITE BLOOD COUNT 38.8 x10^3/uL (4.0-11.0)
[2020-12-07 07:50] LABS: CALCIUM 8.9 mg/dL (8.5-10.1); CREATININE 1.1 mg/dL (0.6-1.0); GFR 49.1; POTASSIUM 3.7 mmol/L (3.5-5.1)
[2020-12-07] MEDS: LOSARTAN POTASSIUM 50 MG TABLET. PO SCH (08:12)
[2020-12-07] MEDS: PIPERACILLIN/TAZOBACTAM 3.375 GM in IV NORMAL SALINE 50ML 50 ML IV SCH ×3 (08:13→17:45)
[2020-12-07] MEDS: INSULIN LISPRO 300 UNITS/3 ML VIAL. SQ SCH ×6 (08:29→17:48)
[2020-12-07 08:44] LABS: PROTHROMBIN TIME PATIENT 15.3 SEC (11.7-14.0)
[2020-12-07] MEDS ORDERED: NON FORMULARY ITEM (Alendronate Sodium (Fosamax) 70 MG) PO SCH (09:00)
--- NOTE | 2020-12-07 09:25 | RAD ---
US ABDOMEN LIMITED History: Acute cholecystitis on CT. Comparison: CT abdomen pelvis 12/06/2020 Technique: Sonographic examination of the right upper quadrant of the abdomen. Findings: Pancreas: Visualized portions unremarkable Liver: The liver measures 15.6 cm. Liver echotexture is mildly coarsened with overall normal echogen icity. No focal hepatic lesions. Hepatopetal flow in the portal vein. Gallbladder: Distended with a few echogenic shadowing stones in the fundus. Dependent sludge. Where m easured the wall is normal thickness 2 mm, however areas appear irregularly thickened and adjacent hy poechogenicity suggest pericholecystic inflammation. Bile ducts: The common duct measures 3 mm. Right kidney: 10.3 cm length. No focal lesion, calculi or hydronephrosis. Aorta/IVC: Visualized portions are unremarkable. Other: No ascites. Impression: 1. Acute calculus cholecystitis. 2. No common bile duct dilatation. Electronically signed by: Nas Berg MD (12/07/2020 9:23 AM) [facility]
--- NOTE | 2020-12-07 10:23 | PDOC2 ---
CONSULT Date of Consult Date of Consult DATE: 12/07/20 TIME: : History of Present Illness Reason for Visit: The patient is a 70 year old female who reported to the ER with severe epigastric and RUQ abdomina pain starting 2 days ago. The ER evaluation is consistent with cholecystitis. Past Medical History Past Medical History HTN, DM, obesity, history of breast cancer Past Surgical History Past Surgical History R lumpectomy, appendectomy, thyroid surgery, ankle surgery, hammertoe Social History No ALCOHOL: occassional Drugs: None Current Medications Current Medications Current Medications Morphine Sulfate (Morphine Sulfate) 4 mg 1X ONCE IVP Last administered on 12/06/20at 20:29; Start 12/06/20 at 20:30; Stop 12/06/20 at 20:31; Status DC Ondansetron HCl (Zofran) 4 mg 1X ONCE IVP Last administered on 12/06/20at 20:29; Start 12/06/20 at 20:30; Stop 12/06/20 at 20:31; Status DC Levofloxacin/ Dextrose 150 ml @ 100 mls/hr 1X ONCE IV Last administered on 12/06/20at 22:24; Start 12/06/20 at 21:00; Stop 12/06/20 at 22:29; Status DC Iohexol (Omnipaque 300 Mg/ml) 60 ml 1X ONCE IV Last administered on 12/06/20at 21:27; Start 12/06/20 at 21:00; Stop 12/06/20 at 21:01; Status DC Info (CONTRAST GIVEN -- Rx MONITORING) 1 each PRN DAILY PRN MC SEE COMMENTS; Start 12/06/20 at 21:15; Stop 12/08/20 at 21:14 Piperacillin Sod/ Tazobactam Sod 3.375 gm/Sodium Chloride 50 ml @ 100 mls/hr 1X ONCE IV Last administered on 12/07/20at 00:49; Start 12/06/20 at 22:00; Stop 12/06/20 at 22:29; Status DC Morphine Sulfate (Morphine Sulfate) 4 mg PRN Q2HR PRN IVP PAIN Last administered on 12/07/20at 09:41; Start 12/06/20 at 22:15; Stop 12/07/20 at 22:14 Sodium Chloride 1,000 ml @ 100 mls/hr Q10H IV Last administered on 12/06/20at 22:22; Start 12/06/20 at 22:15; Stop 12/07/20 at 22:14 Ondansetron HCl (Zofran) 4 mg PRN Q6HRS PRN IVP NAUSEA/VOMITING; Start 12/07/20 at 06:30 Al Hydroxide/Mg Hydroxide (Mylanta Plus Xs) 30 ml PRN Q3HRS PRN PO HEARTBURN / GAS; Start 12/07/20 at 06:30 Calcium Carbonate/ Glycine (Tums) 500 mg PRN Q3HRS PRN PO UPSET STOMACH; Start 12/07/20 at 06:30 Zolpidem Tartrate (Ambien) 5 mg PRN QHS PRN PO INSOMNIA, MAY REPEAT IN 1HR; Start 12/07/20 at 06:30 Acetaminophen (Tylenol) 650 mg PRN Q6HRS PRN PO Headaches, Temp > 101.5F; Start 12/07/20 at 06:30 Magnesium Hydroxide (Milk Of Magnesia) 2,400 mg PRN Q12HR PRN PO CONSTIPATION; Start 12/07/20 at 06:30 Heparin Sodium (Porcine) (Heparin Sodium) 5,000 unit Q8HRS SQ ; Start 12/07/20 at 14:00 Losartan Potassium (Cozaar) 50 mg DAILY PO Last administered on 12/07/20at 08:12; Start 12/07/20 at 09:00 Non-Formulary Medication (Alendronate Sodium (Fosamax)) 70 mg WEEKLY PO ; Start 12/07/20 at 09:00; Status UNV Acetaminophen/ Butalbital/ Caffeine (Fioricet) 1 tab PRN TID PRN PO MIGRAINE HEADACHE; Start 12/07/20 at 06:45 Diltiazem HCl (Cardizem 24hr Cd) 240 mg BID PO Last administered on 12/07/20at 08:11; Start 12/07/20 at 09:00 Hydralazine HCl (Apresoline Inj) 10 mg PRN Q4HRS PRN IVP ELEVATED BP, SEE COMMENTS; Start 12/07/20 at 06:30 Labetalol HCl (Normodyne Iv Push) 20 mg PRN Q4HRS PRN IVP HYPERTENSION; Start 12/07/20 at 06:30 Insulin Glargine (Lantus Syringe) 15 unit QHS SQ ; Start 12/07/20 at 21:00 Insulin Human Lispro (HumaLOG) 5 units TIDWMEALS SQ Last administered on 12/07/20at 08:29; Start 12/07/20 at 08:00 Dextrose (Dextrose 50%-Water Syringe) 12.5 gm PRN Q15MIN PRN IV SEE COMMENTS; Start 12/07/20 at 06:30 Insulin Human Lispro (HumaLOG) 0-9 UNITS TIDWMEALS SQ Last administered on 12/07/20at 08:31; Start 12/07/20 at 08:00 Piperacillin Sod/ Tazobactam Sod (Zosyn Per Pharmacy) 1 each PRN DAILY PRN MC SEE COMMENTS; Start 12/07/20 at 07:00 Piperacillin Sod/ Tazobactam Sod 3.375 gm/Sodium Chloride 50 ml @ 100 mls/hr Q6HRS IV Last administered on 12/07/20at 08:13; Start 12/07/20 at 07:30 Active Scripts Active Reported [lipitor] [januvia] Fish Oil 1,000 Mg Capsule (Portal-3 Fatty Acids/Fish Oil) 1 Each Capsule 1 Each PO BID Ambien (Zolpidem Tartrate) 5 Mg Tablet 5 Mg PO HS PRN Fosamax (Alendronate Sodium) 70 Mg Tablet 70 Mg PO WEEKLY Losartan Potassium 50 Mg Tablet 50 Mg PO DAILY Multi Vitamin Daily (Multivitamin) 1 Each Tablet 1 Each PO DAILY Fiorinal 50-325-40 Mg Capsule (Butalbital/Aspirin/Caffeine) 1 Each Capsule 1 Each PO PRN TID PRN Metformin Hcl 1,000 Mg Tablet 1,000 Mg PO BIDWMEALS Zyrtec (Cetirizine Hcl) 10 Mg Capsule 10 Mg PO DAILY Diltiazem Er (Diltiazem Hcl) 240 Mg Cap.er.deg 240 Mg PO BID Allergies Allergies: Coded Allergies: Sulfa (Sulfonamide Antibiotics) (Verified Allergy, Severe, Tongue Swelling, 04/03/14) ROS General: No: Chills, Night Sweats, Fatigue, Malaise, Appetite, Other PSYCHOLOGICAL ROS: No: Anxiety, Behavioral Disorder, Concentration difficultie, Decreased libido, Depression, Disorientation, Hallucinations, Hostility, Irritablity, Memory difficulties, Mood Swings, Obsessive thoughts, Physical abuse, Sexual abuse, Sleep disturbances, Suicidal ideation, Other Eyes: No Blurry vision, No Decreased vision, No Double vision, No Dry eyes, No Excessive tearing, No Eye Pain, No Itchy Eyes, No Loss of vision, No Photophobia, No Scotomata, No Uses contacts, No Uses glasses, No Other HEENT: No: Heacaches, Visual Changes, Hearing change, Nasal congestion, Nasal discharge, Oral lesions, Sinus pain, Sore Throat, Epistaxis, Sneezing, Snoring, Tinnitus, Vertigo, Vocal changes, Other ALLERGY AND IMMUNOLOGY: No: Hives, Insect Bite Sensitivity, Itchy/Watery Eyes, Nasal Congestion, Post Nasal Drip, Seasonal Allergies, Other Hematological and Lymphatic: No: Bleeding Problems, Blood Clots, Blood Transfusions, Brusing, Night Sweats, Pallor, Swollen Lymph Nodes, Other ENDOCRINE: No: Breast Changes, Galactorrhea, Hair Pattern Changes, Hot Flashes, Malaise/lethargy, Mood Swings, Palpitations, Polydipsia/polyuria, Skin Changes, Temperature Intolerance, Unexpected Weight Changes, Other Breast: No New/Changing Breast Lumps, No Nipple changes, No Nipple discharge, No Other Cardiovascular: No Chest Pain, No Palpitations, No Orthopnea, No Paroxysmal Noc. Dyspnea, No Edema, No Lt Headedness, No Other Gastrointestinal: Yes Abdominal Pain Genitourinary: No Dysuria, No Frequency, No Incontinence, No Hematuria, No Retention, No Discharge, No Urgency, No Pain, No Flank Pain, No Other, No , No , No , No , No , No , No Musculoskeletal: No Gait Disturbance, No Joint Pain, No Joint Stiffness, No Joint Swelling, No Muscle Pain, No Muscular Weakness, No Pain In:, No Swelling In:, No Other Neurological: No Behavorial Changes, No Bowel/Bladder ControlChng, No Confusion, No Dizziness, No Gait Disturbance, No Headaches, No Impaired Coord/balance, No Memory Loss, No Numbness/Tingling, No Seizures, No Speech Problems, No Tremors, No Visual Changes, No Weakness, No Other Skin: No Dry Skin, No Eczema, No Hair Changes, No Lumps, No Mole Changes, No Mottling, No Nail Changes, No Pruritus, No Rash, No Skin Lesion Changes, No Other, No Acne Physical Exam General: Alert, Oriented X3, Cooperative, mild distress HEENT: Atraumatic Lungs: Clear to auscultation Heart: Regular rate Abdomen: Soft (tender with guarding RUQ, obese) Extremities: No clubbing, No cyanosis Skin: No rashes Neuro: Normal speech Psych/Mental Status: Mental status NL Vitals VITALS Vital Signs Date Time Temp Pulse Resp B/P (MAP) Pulse Ox O2 Delivery O2 Flow Rate FiO2 12/07/20 08:12 104 109/61 12/07/20 07:00 97.5 20 92 Room Air 97.5 Labs Labs Laboratory Tests Test 12/06/20 20:10 12/06/20 21:45 12/06/20 23:12 12/06/20 23:15 White Blood Count 42.1 x10^3/uL (4.0-11.0) Red Blood Count 4.36 x10^6/uL (3.50-5.40) Hemoglobin 13.3 g/dL (12.0-15.5) Hematocrit 39.5 % (36.0-47.0) Mean Corpuscular Volume 91 fL (79-100) Mean Corpuscular Hemoglobin 31 pg (25-35) Mean Corpuscular Hemoglobin Concent 34 g/dL (31-37) Red Cell Distribution Width 13.6 % (11.5-14.5) Platelet Count 431 x10^3/uL (140-400) Neutrophils (%) (Auto) 93 % (31-73) Lymphocytes (%) (Auto) 1 % (24-48) Monocytes (%) (Auto) 5 % (0-9) Eosinophils (%) (Auto) 1 % (0-3) Basophils (%) (Auto) 0 % (0-3) Neutrophils # (Auto) 39.0 x10^3/uL (1.8-7.7) Lymphocytes # (Auto) 0.5 x10^3/uL (1.0-4.8) Monocytes # (Auto) 2.3 x10^3/uL (0.0-1.1) Eosinophils # (Auto) 0.3 x10^3/uL (0.0-0.7) Basophils # (Auto) 0.1 x10^3/uL (0.0-0.2) Segmented Neutrophils % 93 % (35-66) Band Neutrophils % 6 % (0-9) Lymphocytes % 1 % (24-48) Toxic Vacuolation Mod Platelet Estimate Increased (ADEQUATE) Sodium Level 131 mmol/L (136-145) Potassium Level 4.0 mmol/L (3.5-5.1) Chloride Level 94 mmol/L (98-107) Carbon Dioxide Level 25 mmol/L (21-32) Anion Gap 12 (6-14) Blood Urea Nitrogen 11 mg/dL (7-20) Creatinine 1.0 mg/dL (0.6-1.0) Estimated GFR (Cockcroft-Gault) 54.8 BUN/Creatinine Ratio 11 (6-20) Glucose Level 337 mg/dL (70-99) Calcium Level 9.6 mg/dL (8.5-10.1) Total Bilirubin 3.4 mg/dL (0.2-1.0) Aspartate Amino Transf (AST/SGOT) 202 U/L (15-37) Alanine Aminotransferase (ALT/SGPT) 166 U/L (14-59) Alkaline Phosphatase 198 U/L (46-116) Troponin I Quantitative < 0.017 ng/mL (0.000-0.055) UQ-Bob-P-Type Natriuretic Peptide 1457 pg/mL (0-124) Total Protein 7.9 g/dL (6.4-8.2) Albumin 3.2 g/dL (3.4-5.0) Albumin/Globulin Ratio 0.7 (1.0-1.7) Lipase 37 U/L (73-393) Lactic Acid Level 1.5 mmol/L (0.4-2.0) Urine Collection Type Void Urine Color Yellow Urine Clarity Clear Urine pH 6.0 (<5.0-8.0) Urine Specific [place] >=1.030 (1.000-1.030) Urine Protein 100 mg/dL (NEG-TRACE) Urine Glucose (UA) >=1000 mg/dL (NEG) Urine Ketones (Stick) 15 mg/dL (NEG) Urine Blood Negative (NEG) Urine Nitrite Negative (NEG) Urine Bilirubin Moderate (NEG) Urine Urobilinogen Dipstick 4.0 mg/dL (0.2 mg/dL) Urine Leukocyte Esterase Negative (NEG) Urine RBC 0 /HPF (0-2) Urine WBC 1-4 /HPF (0-4) Urine Squamous Epithelial Cells Few /LPF Urine Amorphous Sediment Present /HPF Urine Bacteria Few /HPF (0-FEW) Urine Mucus Slight /LPF SARS-CoV-2 RNA (DAVID) Negative (Negative) SARS-CoV-2 Antigen (Rapid) Negative (NEGATIVE) Test 12/07/20 06:50 12/07/20 08:08 12/07/20 08:10 White Blood Count 38.8 x10^3/uL (4.0-11.0) Red Blood Count 4.17 x10^6/uL (3.50-5.40) Hemoglobin 12.5 g/dL (12.0-15.5) Hematocrit 38.4 % (36.0-47.0) Mean Corpuscular Volume 92 fL (79-100) Mean Corpuscular Hemoglobin 30 pg (25-35) Mean Corpuscular Hemoglobin Concent 33 g/dL (31-37) Red Cell Distribution Width 13.3 % (11.5-14.5) Platelet Count 415 x10^3/uL (140-400) Neutrophils (%) (Auto) 94 % (31-73) Lymphocytes (%) (Auto) 2 % (24-48) Monocytes (%) (Auto) 4 % (0-9) Eosinophils (%) (Auto) 0 % (0-3) Basophils (%) (Auto) 0 % (0-3) Neutrophils # (Auto) 36.5 x10^3/uL (1.8-7.7) Lymphocytes # (Auto) 0.6 x10^3/uL (1.0-4.8) Monocytes # (Auto) 1.6 x10^3/uL (0.0-1.1) Eosinophils # (Auto) 0.0 x10^3/uL (0.0-0.7) Basophils # (Auto) 0.0 x10^3/uL (0.0-0.2) Sodium Level 134 mmol/L (136-145) Potassium Level 3.7 mmol/L (3.5-5.1) Chloride Level 96 mmol/L (98-107) Carbon Dioxide Level 24 mmol/L (21-32) Anion Gap 14 (6-14) Blood Urea Nitrogen 16 mg/dL (7-20) Creatinine 1.1 mg/dL (0.6-1.0) Estimated GFR (Cockcroft-Gault) 49.1 Glucose Level 333 mg/dL (70-99) Calcium Level 8.9 mg/dL (8.5-10.1) Glucose (Fingerstick) 322 mg/dL (70-99) Prothrombin Time 15.3 SEC (11.7-14.0) Prothromb Time International Ratio 1.2 (0.8-1.1) Activated Partial Thromboplast Time 34 SEC (24-38) Laboratory Tests Test 12/06/20 20:10 12/06/20 21:45 12/06/20 23:12 12/06/20 23:15 White Blood Count 42.1 x10^3/uL (4.0-11.0) Red Blood Count 4.36 x10^6/uL (3.50-5.40) Hemoglobin 13.3 g/dL (12.0-15.5) Hematocrit 39.5 % (36.0-47.0) Mean Corpuscular Volume 91 fL (79-100) Mean Corpuscular Hemoglobin 31 pg (25-35) Mean Corpuscular Hemoglobin Concent 34 g/dL (31-37) Red Cell Distribution Width 13.6 % (11.5-14.5) Platelet Count 431 x10^3/uL (140-400) Neutrophils (%) (Auto) 93 % (31-73) Lymphocytes (%) (Auto) 1 % (24-48) Monocytes (%) (Auto) 5 % (0-9) Eosinophils (%) (Auto) 1 % (0-3) Basophils (%) (Auto) 0 % (0-3) Neutrophils # (Auto) 39.0 x10^3/uL (1.8-7.7) Lymphocytes # (Auto) 0.5 x10^3/uL (1.0-4.8) Monocytes # (Auto) 2.3 x10^3/uL (0.0-1.1) Eosinophils # (Auto) 0.3 x10^3/uL (0.0-0.7) Basophils # (Auto) 0.1 x10^3/uL (0.0-0.2) Segmented Neutrophils % 93 % (35-66) Band Neutrophils % 6 % (0-9) Lymphocytes % 1 % (24-48) Toxic Vacuolation Mod Platelet Estimate Increased (ADEQUATE) Sodium Level 131 mmol/L (136-145) Potassium Level 4.0 mmol/L (3.5-5.1) Chloride Level 94 mmol/L (98-107) Carbon Dioxide Level 25 mmol/L (21-32) Anion Gap 12 (6-14) Blood Urea Nitrogen 11 mg/dL (7-20) Creatinine 1.0 mg/dL (0.6-1.0) Estimated GFR (Cockcroft-Gault) 54.8 BUN/Creatinine Ratio 11 (6-20) Glucose Level 337 mg/dL (70-99) Calcium Level 9.6 mg/dL (8.5-10.1) Total Bilirubin 3.4 mg/dL (0.2-1.0) Aspartate Amino Transf (AST/SGOT) 202 U/L (15-37) Alanine Aminotransferase (ALT/SGPT) 166 U/L (14-59) Alkaline Phosphatase 198 U/L (46-116) Troponin I Quantitative < 0.017 ng/mL (0.000-0.055) YS-Tnw-Q-Type Natriuretic Peptide 1457 pg/mL (0-124) Total Protein 7.9 g/dL (6.4-8.2) Albumin 3.2 g/dL (3.4-5.0) Albumin/Globulin Ratio 0.7 (1.0-1.7) Lipase 37 U/L (73-393) Lactic Acid Level 1.5 mmol/L (0.4-2.0) Urine Collection Type Void Urine Color Yellow Urine Clarity Clear Urine pH 6.0 (<5.0-8.0) Urine Specific [place] >=1.030 (1.000-1.030) Urine Protein 100 mg/dL (NEG-TRACE) Urine Glucose (UA) >=1000 mg/dL (NEG) Urine Ketones (Stick) 15 mg/dL (NEG) Urine Blood Negative (NEG) Urine Nitrite Negative (NEG) Urine Bilirubin Moderate (NEG) Urine Urobilinogen Dipstick 4.0 mg/dL (0.2 mg/dL) Urine Leukocyte Esterase Negative (NEG) Urine RBC 0 /HPF (0-2) Urine WBC 1-4 /HPF (0-4) Urine Squamous Epithelial Cells Few /LPF Urine Amorphous Sediment Present /HPF Urine Bacteria Few /HPF (0-FEW) Urine Mucus Slight /LPF SARS-CoV-2 RNA (DAVID) Negative (Negative) SARS-CoV-2 Antigen (Rapid) Negative (NEGATIVE) Test 12/07/20 06:50 12/07/20 08:08 12/07/20 08:10 White Blood Count 38.8 x10^3/uL (4.0-11.0) Red Blood Count 4.17 x10^6/uL (3.50-5.40) Hemoglobin 12.5 g/dL (12.0-15.5) Hematocrit 38.4 % (36.0-47.0) Mean Corpuscular Volume 92 fL (79-100) Mean Corpuscular Hemoglobin 30 pg (25-35) Mean Corpuscular Hemoglobin Concent 33 g/dL (31-37) Red Cell Distribution Width 13.3 % (11.5-14.5) Platelet Count 415 x10^3/uL (140-400) Neutrophils (%) (Auto) 94 % (31-73) Lymphocytes (%) (Auto) 2 % (24-48) Monocytes (%) (Auto) 4 % (0-9) Eosinophils (%) (Auto) 0 % (0-3) Basophils (%) (Auto) 0 % (0-3) Neutrophils # (Auto) 36.5 x10^3/uL (1.8-7.7) Lymphocytes # (Auto) 0.6 x10^3/uL (1.0-4.8) Monocytes # (Auto) 1.6 x10^3/uL (0.0-1.1) Eosinophils # (Auto) 0.0 x10^3/uL (0.0-0.7) Basophils # (Auto) 0.0 x10^3/uL (0.0-0.2) Sodium Level 134 mmol/L (136-145) Potassium Level 3.7 mmol/L (3.5-5.1) Chloride Level 96 mmol/L (98-107) Carbon Dioxide Level 24 mmol/L (21-32) Anion Gap 14 (6-14) Blood Urea Nitrogen 16 mg/dL (7-20) Creatinine 1.1 mg/dL (0.6-1.0) Estimated GFR (Cockcroft-Gault) 49.1 Glucose Level 333 mg/dL (70-99) Calcium Level 8.9 mg/dL (8.5-10.1) Glucose (Fingerstick) 322 mg/dL (70-99) Prothrombin Time 15.3 SEC (11.7-14.0) Prothromb Time International Ratio 1.2 (0.8-1.1) Activated Partial Thromboplast Time 34 SEC (24-38) Assessment/Plan Assessment/Plan 70 year old female with RUQ pain, suspect cholecystititis. Plan for lap manan in AM. CALVIN LUIS MD Dec 07, 2020 10:23
[2020-12-07] MEDS: IV NORMAL SALINE 1000ML BAG 1,000 ML IV SCH ×2 (11:23→23:45)
[2020-12-07] MEDS: HEPARIN for SUB-Q USE 5,000 UNIT/ML VIAL. SQ SCH ×2 (14:00→22:00)
[2020-12-07] MEDS ORDERED: OMEP20TA8 PO (17:11)
[2020-12-07] MEDS ORDERED: ASCO500C PO (17:11)
[2020-12-07] MEDS ORDERED: FAMO20TA5 PO (17:11)
[2020-12-07] MEDS ORDERED: ATOR10TA60 PO (17:11)
[2020-12-07] MEDS ORDERED: ONDA4TAB12 PO (17:11)
[2020-12-07] MEDS ORDERED: SITA100T PO (17:11)
[2020-12-07] MEDS ORDERED: HYAL1CAP PO (17:11)
[2020-12-07] MEDS: INSULIN GLARGINE SYRINGE. SQ SCH (21:00)
[2020-12-07] MEDS ORDERED: MORPHINE SULFATE 10 MG/ML VIAL. IV PRN (22:30)
[2020-12-08] VITALS (13 sets, daily range): BP systolic 88–130; BP diastolic 46–59
[2020-12-08] MEDS: HEPARIN for SUB-Q USE 5,000 UNIT/ML VIAL. SQ SCH ×3 (00:17→21:25)
[2020-12-08] MEDS: PIPERACILLIN/TAZOBACTAM 3.375 GM in IV NORMAL SALINE 50ML 50 ML IV SCH ×5 (00:21→23:33)
[2020-12-08] MEDS: fentaNYL PF VIAL 100 MCG/2 ML VIAL IVP PRN ×4 (01:37→10:25)
--- NOTE | 2020-12-08 05:52 | PDOC ---
[employer] PROGRESS NOTE Date of Service DOS: DATE: 12/08/20 TIME: 05:50 Chief Complaint Chief Complaint Acute cholecystitis SIRS DM2 with hyperglycemia Transaminitis HTN HLD Cardiac arrhythmia History of right breast cancer Plan: Consultation placed to general surgery Abdominal ultrasound pending We will continue treatment with IV Zosyn Anticipate surgical intervention today or in the near future; will keep patient n.p.o. until seen by general surgery. Provide IV pain management, and antiemetics. IV fluids Basal/prandial insulin Resume home medications; denies any history of atrial fibrillation, but does state that she takes diltiazem for years for HTN/cardiac arrhythmia. FEN - NPO; then ADA diet. PPX - Heparin FULL CODE Dispo - inpatient for above Patient names Lora Andrade as her surrogate decision-maker History of Present Illness History of Present Illness 70-year-old female with past medical history DM2, HTN, right breast cancer, who presents to the ED with complaints of worsening epigastric pain for the past 3 days. She reports sharp pain, 7/10, that is aggravated by deep inspiration. Associated nausea, vomiting, and anorexia. She denies any fever, diarrhea, shortness of breath, or recent injury. In the ED labs showed WBC 42.1, platelets 431, CBG 337, AST 202, ALT 166, alkaline phos 148, BNP 1457, troponin <0.017, lactic acid 1.5, albumin 3.2. She received broad-spectrum antibiotics and IV f luids. CT abdomen/pelvis showed findings favored to represent acute cholecystitis. She received broad-spectrum antibiotics and IV fluids. She has been fully vaccinated against COVID-19. She will be admitted with general surgery consultation. 12/08/2020: Afebrile. Pain increased overnight, increase as needed IV pain medication. Abdominal ultrasound showed acute calculus cholecystitis, without common bile duct dilation. Plan for surgery today. Vitals/I&O Vitals/I&O: Vital Signs Date Time Temp Pulse Resp B/P (MAP) Pulse Ox O2 Delivery O2 Flow Rate FiO2 12/08/20 03:00 97.9 90 20 103/58 (73) 93 Room Air 97.9 I & O 12/07/20 12/07/20 12/08/20 14:59 22:59 06:59 Intake Total 300 ml 300 ml Output Total 200 ml Balance 300 ml 100 ml Physical Exam General: Alert, Oriented X3, Cooperative, mild distress Heart: Regular rate Lungs: Clear Abdomen: Soft (tender with guarding RUQ, obese) Extremities: No clubbing, No cyanosis Skin: No rashes Labs Labs: Laboratory Tests Test 12/07/20 06:50 12/07/20 08:08 12/07/20 08:10 12/07/20 12:34 White Blood Count 38.8 x10^3/uL (4.0-11.0) Red Blood Count 4.17 x10^6/uL (3.50-5.40) Hemoglobin 12.5 g/dL (12.0-15.5) Hematocrit 38.4 % (36.0-47.0) Mean Corpuscular Volume 92 fL (79-100) Mean Corpuscular Hemoglobin 30 pg (25-35) Mean Corpuscular Hemoglobin Concent 33 g/dL (31-37) Red Cell Distribution Width 13.3 % (11.5-14.5) Platelet Count 415 x10^3/uL (140-400) Neutrophils (%) (Auto) 94 % (31-73) Lymphocytes (%) (Auto) 2 % (24-48) Monocytes (%) (Auto) 4 % (0-9) Eosinophils (%) (Auto) 0 % (0-3) Basophils (%) (Auto) 0 % (0-3) Neutrophils # (Auto) 36.5 x10^3/uL (1.8-7.7) Lymphocytes # (Auto) 0.6 x10^3/uL (1.0-4.8) Monocytes # (Auto) 1.6 x10^3/uL (0.0-1.1) Eosinophils # (Auto) 0.0 x10^3/uL (0.0-0.7) Basophils # (Auto) 0.0 x10^3/uL (0.0-0.2) Sodium Level 134 mmol/L (136-145) Potassium Level 3.7 mmol/L (3.5-5.1) Chloride Level 96 mmol/L (98-107) Carbon Dioxide Level 24 mmol/L (21-32) Anion Gap 14 (6-14) Blood Urea Nitrogen 16 mg/dL (7-20) Creatinine 1.1 mg/dL (0.6-1.0) Estimated GFR (Cockcroft-Gault) 49.1 Glucose Level 333 mg/dL (70-99) Calcium Level 8.9 mg/dL (8.5-10.1) Glucose (Fingerstick) 322 mg/dL (70-99) 200 mg/dL (70-99) Prothrombin Time 15.3 SEC (11.7-14.0) Prothromb Time International Ratio 1.2 (0.8-1.1) Activated Partial Thromboplast Time 34 SEC (24-38) Test 12/07/20 16:46 12/07/20 20:56 Glucose (Fingerstick) 190 mg/dL (70-99) 134 mg/dL (70-99) Comment Review of Relevant I have reviewed the following items wally (where applicable) has been applied. Medications: Current Medications Medications (Trade) Dose Ordered Sig/Kaye Route PRN Reason Start Time Stop Time Status Last Admin Dose Admin Heparin Sodium (Porcine) (Heparin Sodium) 5,000 unit Q8HRS SQ 12/07/20 14:00 12/08/20 00:17 Losartan Potassium (Cozaar) 50 mg DAILY PO 12/07/20 09:00 12/07/20 08:12 Diltiazem HCl (Cardizem 24hr Cd) 240 mg BID PO 12/07/20 09:00 12/07/20 08:11 Insulin Human Lispro (HumaLOG) 5 units TIDWMEALS SQ 12/07/20 08:00 12/07/20 17:47 Insulin Human Lispro (HumaLOG) 0-9 UNITS TIDWMEALS SQ 12/07/20 08:00 12/07/20 17:48 Piperacillin Sod/ Tazobactam Sod 3.375 gm/Sodium Chloride 50 ml @ 100 mls/hr Q6HRS IV 12/07/20 07:30 12/08/20 00:21 Morphine Sulfate (Morphine Sulfate) 5 mg PRN Q4HRS PRN IV SEVERE PAIN 7-10 12/07/20 22:30 12/07/20 22:55 Fentanyl Citrate (Fentanyl 2ml Vial) 50 mcg PRN Q2HR PRN IVP PAIN MODERATE 12/07/20 22:30 12/08/20 01:37 Justifications for Admission General Conditions Other justification for admit: Acute cholecystitis Other Justification COLEEN HEMPHILL MD Dec 08, 2020 05:52
[2020-12-08] MEDS ORDERED: IOHEXOL 300 MG/ML 50 ML VIAL. ONE (07:08)
[2020-12-08] MEDS ORDERED: BUPIVACAINE MPF 0.5% 30 ML VIAL. ONE (07:09)
[2020-12-08] MEDS ORDERED: SURGICEL HEMOSTAT 4X8 EACH. ONE (07:09)
[2020-12-08] MEDS ORDERED: LIDOCAINE 2% PF 5 ML VIAL. ONE (07:19)
[2020-12-08] MEDS ORDERED: GLYCOPYRROLATE 1 MG/5 ML VIAL. ONE ×2 (07:19→09:30)
[2020-12-08] MEDS ORDERED: DEXAMETHASONE SOD PHOS 4 MG/ML VIAL ONE (07:19)
[2020-12-08] MEDS ORDERED: PROPOFOL 10 MG/ML (20ML) VIAL. IV ONE (07:19)
[2020-12-08] MEDS ORDERED: ONDANSETRON PF 4 MG/2 ML VIAL. ONE (07:19)
[2020-12-08] MEDS ORDERED: NEOSTIGMINE METHYLSULFATE 5 MG/5 ML SYRINGE. ONE ×2 (07:19→09:30)
[2020-12-08] MEDS ORDERED: fentaNYL PF VIAL 100 MCG/2 ML VIAL ONE ×2 (07:20→10:12)
[2020-12-08] MEDS ORDERED: MORPHINE SULFATE 2 MG/ML INJ. IVP PRN (07:30)
[2020-12-08] MEDS ORDERED: PROCHLORPERAZINE 10 MG/2 ML VIAL. IVP PRN (07:30)
[2020-12-08] MEDS ORDERED: IV RINGERS,LACTATED 1000ML 1,000 ML IV SCH (07:30)
[2020-12-08] MEDS ORDERED: fentaNYL PF VIAL 100 MCG/2 ML VIAL IVP PRN ×2 (07:30)
[2020-12-08] MEDS ORDERED: HYDROmorphone 2 MG/ML VIAL IVP PRN (07:30)
[2020-12-08] MEDS: INSULIN LISPRO 300 UNITS/3 ML VIAL. SQ SCH ×6 (08:00→17:57)
[2020-12-08 08:04] LABS: BASO % 0 % (0-3); EOS % 0 % (0-3); HEMATOCRIT 34.3 % (36.0-47.0); HEMOGLOBIN 11.2 g/dL (12.0-15.5); LYMPH # 0.7 x10^3/uL (1.0-4.8); LYMPH % 2 % (24-48); MEAN CORPUSCULAR HEMOGLOBIN 30 pg (25-35); MEAN CORPUSCULAR HGB CONC 33 g/dL (31-37); MEAN CORPUSCULAR VOLUME 93 fL (79-100); MONO # 1.4 x10^3/uL (0.0-1.1); MONO % 4 % (0-9); NEUT # 28.9 x10^3/uL (1.8-7.7); NEUT % 93 % (31-73); PLATELET COUNT 375 x10^3/uL (140-400); RED CELL DISTRIBUTION WIDTH 13.3 % (11.5-14.5); WHITE BLOOD COUNT 31.1 x10^3/uL (4.0-11.0)
[2020-12-08 08:07] LABS: CALCIUM 8.2 mg/dL (8.5-10.1); CREATININE 2.6 mg/dL (0.6-1.0); GFR 18.2; POTASSIUM 4.6 mmol/L (3.5-5.1)
[2020-12-08] MEDS ORDERED: PHENYLEPHRINE in 0.9% NACL PF 1 MG/10 ML SYRINGE. IV ONE (08:34)
[2020-12-08] MEDS ORDERED: INSULIN LISPRO 100 UNIT/ML 3ML VIAL for OP,RR ONLY. SQ PRN (09:00)
--- NOTE | 2020-12-08 09:21 | RAD ---
Findings/ impression: No images were submitted for evaluation. Intraoperative fluoroscopy was provided for cholangiogram wi thout radiologist present. Please see operative report for full details. Fluoroscopy time: 0.16 minutes Electronically signed by: Garry Dorsey MD (12/08/2020 9:18 AM) MARYAM
--- NOTE | 2020-12-08 09:49 | PDOC4 ---
Operative Note Operative Note Operative Note: Preoperative Diagnosis: Acute cholecystitis Postoperative Diagnosis: Acute gangrenous cholecystitis with perforation Procedure: Laparoscopic cholecystectomy with intraoperative cholangiogram Surgeons: Chilango Mold Stripper: Kal HECTOR Anesthesia: Gen. Estimated Blood Loss: 30 mL Specimen: Gallbladder to pathology Drains: 19 Danish KESHAWN drain right upper quadrant Complications: None Indications: The patient is a 70-year-old female was admitted with severe right upper quadrant pain. Her evaluation is consistent with cholecystitis. Surgical treatment was offered by means of a laparoscopic cholecystectomy. The risks of surgery were discussed which include bleeding, infection, bile duct injury, bile leak, pain, the potential for additional surgeries or procedures. The patient understands and would like to proceed. Description: The patient was taken to the operating room and laid supine on the operating table. General anesthesia was performed. The abdomen was prepped with ChloraPrep and draped in a standard surgical fashion. A small in fraumbilical incision was made with a scalpel. The Veress needle was then inserted and a pneumoperitoneum was then created. A 5 mm trocar was then inserted and the laparoscope was introduced. In the upper midabdomen a 12 mm trocar was inserted and in the right upper quadrant two 5 mm trochars were inserted. There was a severe and marked inflammatory process of the right upper quadrant and the gallbladder was obscured by omentum. There was free bilious fluid present in the right upper quadrant. The omentum was peeled away exposing the gangrenous gallbladder with perforation. The gallbladder was retracted cephalad. The cystic duct was dissected free from surrounding tissues. One clip was placed on the duct near the gallbladder junction. An opening was made in the duct and a cholangiocatheter placed within and secured with a clip. Using contrast dye and fluoroscopy an intraoperative cholangiogram was performed that showed no evidence of common duct stones, and contrast readily passed into the duodenum. The clip and catheter were then withdrawn. Three clips were placed on the cystic duct and it was divided. The cystic artery was then identified, dissected free, doubly clipped and divided as well. The gallbladder was then mobilized away from the liver with cautery. A Surgicel pack was placed on the gallbladder fossa to assist with any oozing. The gallbladder was then placed in an endoscopic bag and extracted at the superior trocar site. The fascia there was closed with 0 PDS sutures. The right upper quadrant was then extensively irrigated with saline which was then all suctioned. Hemostasis was good. A 19 [place] KESHAWN drain was left in the the right upper quadrant with an exit site at the right lateral port incision. This was secured to the skin with 2-0 silk. The remaining ports were removed and the pneumoperitoneum was relieved. The skin incisions were closed using 4-0 Monocryl suture. Steri-Strips and dressings were then applied. The patient tolerated the procedure well and was sent to the recovery room in stable condition. At the end of the case all counts were correct. CALVIN LUIS MD Dec 08, 2020 09:49
[2020-12-08] MEDS ORDERED: HYDROcodone/APAP 5/325MG 1 TAB TABLET PO PRN (10:00)
[2020-12-08] MEDS: LOSARTAN POTASSIUM 50 MG TABLET. PO SCH (11:22)
[2020-12-08] MEDS: BUTALB/APAP/CAFEIN 50/325/40MG TABLET. PO PRN ×2 (12:44→21:16)
[2020-12-08] MEDS: INSULIN GLARGINE SYRINGE. SQ SCH ×2 (21:00→22:08)
[2020-12-08] MEDS: ZOLPIDEM 5 MG TABLET. PO PRN (23:34)
[2020-12-09 03:00] VITALS: BP 116/75
[2020-12-09] MEDS: PIPERACILLIN/TAZOBACTAM 3.375 GM in IV NORMAL SALINE 50ML 50 ML IV SCH ×3 (06:17→18:21)
[2020-12-09] MEDS: HEPARIN for SUB-Q USE 5,000 UNIT/ML VIAL. SQ SCH ×3 (06:18→21:46)
[2020-12-09 07:00] VITALS: BP 105/51
[2020-12-09] MEDS: INSULIN LISPRO 300 UNITS/3 ML VIAL. SQ SCH ×6 (08:00→17:00)
[2020-12-09 08:19] LABS: CALCIUM 7.9 mg/dL (8.5-10.1); CREATININE 3.4 mg/dL (0.6-1.0); GFR 13.4; POTASSIUM 4.1 mmol/L (3.5-5.1)
[2020-12-09 08:30] LABS: BASO % 0 % (0-3); EOS % 0 % (0-3); HEMATOCRIT 30.5 % (36.0-47.0); LYMPH % 5 % (24-48); MEAN CORPUSCULAR HEMOGLOBIN 30 pg (25-35); MEAN CORPUSCULAR HGB CONC 33 g/dL (31-37); MEAN CORPUSCULAR VOLUME 92 fL (79-100); MONO % 5 % (0-9); NEUT # 19.9 x10^3/uL (1.8-7.7); NEUT % 91 % (31-73); PLATELET COUNT 366 x10^3/uL (140-400); RED CELL DISTRIBUTION WIDTH 13.5 % (11.5-14.5)
--- NOTE | 2020-12-09 09:13 | PDOC ---
TABITHA MAGDALENO CREDIT CARD SPECIALIST 12/09/20 0913: SURGICAL PROGRESS NOTE DATE: 12/09/20 TIME: 09:11 Subjective does feel better since preop tolerating diet minimal urine output Vital Signs Vital Signs Date Time Temp Pulse Resp B/P (MAP) Pulse Ox O2 Delivery O2 Flow Rate FiO2 12/09/20 03:00 98.2 77 20 116/75 (89) 91 Room Air 98.2 12/08/20 15:00 2.0 I&O Intake and Output 12/09/20 07:00 Intake Total 2000 ml Output Total 105 ml Balance 1895 ml Intake Oral 1000 ml IV Total 1000 ml Drainage Total 75 ml Estimated Blood Loss 30 ml # Voids 3 General: Alert, Oriented X3, Cooperative Abdomen: Soft, Other (drain serosang) Labs Laboratory Tests Test 12/07/20 12:34 12/07/20 16:46 12/07/20 20:56 12/08/20 07:20 Glucose (Fingerstick) 200 mg/dL (70-99) 190 mg/dL (70-99) 134 mg/dL (70-99) White Blood Count 31.1 x10^3/uL (4.0-11.0) Red Blood Count 3.70 x10^6/uL (3.50-5.40) Hemoglobin 11.2 g/dL (12.0-15.5) Hematocrit 34.3 % (36.0-47.0) Mean Corpuscular Volume 93 fL (79-100) Mean Corpuscular Hemoglobin 30 pg (25-35) Mean Corpuscular Hemoglobin Concent 33 g/dL (31-37) Red Cell Distribution Width 13.3 % (11.5-14.5) Platelet Count 375 x10^3/uL (140-400) Neutrophils (%) (Auto) 93 % (31-73) Lymphocytes (%) (Auto) 2 % (24-48) Monocytes (%) (Auto) 4 % (0-9) Eosinophils (%) (Auto) 0 % (0-3) Basophils (%) (Auto) 0 % (0-3) Neutrophils # (Auto) 28.9 x10^3/uL (1.8-7.7) Lymphocytes # (Auto) 0.7 x10^3/uL (1.0-4.8) Monocytes # (Auto) 1.4 x10^3/uL (0.0-1.1) Eosinophils # (Auto) 0.0 x10^3/uL (0.0-0.7) Basophils # (Auto) 0.0 x10^3/uL (0.0-0.2) Sodium Level 132 mmol/L (136-145) Potassium Level 4.6 mmol/L (3.5-5.1) Chloride Level 95 mmol/L (98-107) Carbon Dioxide Level 21 mmol/L (21-32) Anion Gap 16 (6-14) Blood Urea Nitrogen 32 mg/dL (7-20) Creatinine 2.6 mg/dL (0.6-1.0) Estimated GFR (Cockcroft-Gault) 18.2 Glucose Level 198 mg/dL (70-99) Calcium Level 8.2 mg/dL (8.5-10.1) Test 12/08/20 09:47 12/08/20 11:40 12/08/20 16:20 12/08/20 21:11 Glucose (Fingerstick) 203 mg/dL (70-99) 196 mg/dL (70-99) 183 mg/dL (70-99) 150 mg/dL (70-99) Test 12/09/20 07:30 12/09/20 08:06 White Blood Count 22.0 x10^3/uL (4.0-11.0) Red Blood Count 3.30 x10^6/uL (3.50-5.40) Hemoglobin 10.0 g/dL (12.0-15.5) Hematocrit 30.5 % (36.0-47.0) Mean Corpuscular Volume 92 fL (79-100) Mean Corpuscular Hemoglobin 30 pg (25-35) Mean Corpuscular Hemoglobin Concent 33 g/dL (31-37) Red Cell Distribution Width 13.5 % (11.5-14.5) Platelet Count 366 x10^3/uL (140-400) Neutrophils (%) (Auto) 91 % (31-73) Lymphocytes (%) (Auto) 5 % (24-48) Monocytes (%) (Auto) 5 % (0-9) Eosinophils (%) (Auto) 0 % (0-3) Basophils (%) (Auto) 0 % (0-3) Neutrophils # (Auto) 19.9 x10^3/uL (1.8-7.7) Lymphocytes # (Auto) 1.0 x10^3/uL (1.0-4.8) Monocytes # (Auto) 1.0 x10^3/uL (0.0-1.1) Eosinophils # (Auto) 0.0 x10^3/uL (0.0-0.7) Basophils # (Auto) 0.0 x10^3/uL (0.0-0.2) Sodium Level 129 mmol/L (136-145) Potassium Level 4.1 mmol/L (3.5-5.1) Chloride Level 94 mmol/L (98-107) Carbon Dioxide Level 19 mmol/L (21-32) Anion Gap 16 (6-14) Blood Urea Nitrogen 51 mg/dL (7-20) Creatinine 3.4 mg/dL (0.6-1.0) Estimated GFR (Cockcroft-Gault) 13.4 Glucose Level 149 mg/dL (70-99) Calcium Level 7.9 mg/dL (8.5-10.1) Glucose (Fingerstick) 156 mg/dL (70-99) Laboratory Tests Test 12/08/20 09:47 12/08/20 11:40 12/08/20 16:20 12/08/20 21:11 Glucose (Fingerstick) 203 mg/dL (70-99) 196 mg/dL (70-99) 183 mg/dL (70-99) 150 mg/dL (70-99) Test 12/09/20 07:30 12/09/20 08:06 White Blood Count 22.0 x10^3/uL (4.0-11.0) Red Blood Count 3.30 x10^6/uL (3.50-5.40) Hemoglobin 10.0 g/dL (12.0-15.5) Hematocrit 30.5 % (36.0-47.0) Mean Corpuscular Volume 92 fL (79-100) Mean Corpuscular Hemoglobin 30 pg (25-35) Mean Corpuscular Hemoglobin Concent 33 g/dL (31-37) Red Cell Distribution Width 13.5 % (11.5-14.5) Platelet Count 366 x10^3/uL (140-400) Neutrophils (%) (Auto) 91 % (31-73) Lymphocytes (%) (Auto) 5 % (24-48) Monocytes (%) (Auto) 5 % (0-9) Eosinophils (%) (Auto) 0 % (0-3) Basophils (%) (Auto) 0 % (0-3) Neutrophils # (Auto) 19.9 x10^3/uL (1.8-7.7) Lymphocytes # (Auto) 1.0 x10^3/uL (1.0-4.8) Monocytes # (Auto) 1.0 x10^3/uL (0.0-1.1) Eosinophils # (Auto) 0.0 x10^3/uL (0.0-0.7) Basophils # (Auto) 0.0 x10^3/uL (0.0-0.2) Sodium Level 129 mmol/L (136-145) Potassium Level 4.1 mmol/L (3.5-5.1) Chloride Level 94 mmol/L (98-107) Carbon Dioxide Level 19 mmol/L (21-32) Anion Gap 16 (6-14) Blood Urea Nitrogen 51 mg/dL (7-20) Creatinine 3.4 mg/dL (0.6-1.0) Estimated GFR (Cockcroft-Gault) 13.4 Glucose Level 149 mg/dL (70-99) Calcium Level 7.9 mg/dL (8.5-10.1) Glucose (Fingerstick) 156 mg/dL (70-99) Assessment/Plan s/p manan gang manan wbc 22--continue iv abx vikcie, significant postop--defer to IPC for management Justicifation of Admission Dx: Justifications for Admission: Justification of Admission Dx: Yes Comments: cholecystitis CALVIN LUIS MD 12/10/20 0741: SURGICAL PROGRESS NOTE Assessment/Plan Agree with above TABITHA MAGDALENO CREDIT CARD SPECIALIST Dec 09, 2020 09:13 CALVIN LUIS MD Dec 10, 2020 07:41
[2020-12-09] MEDS: LOSARTAN POTASSIUM 50 MG TABLET. PO SCH (10:04)
[2020-12-09] MEDS: BUTALB/APAP/CAFEIN 50/325/40MG TABLET. PO PRN ×2 (10:05→18:20)
[2020-12-09 11:00] VITALS: BP 112/49
--- NOTE | 2020-12-09 11:13 | NUR ---
SW following. Discussed with RN, pt from home with mother, room air, GI soft, COVID-19 negative. Pt had a lap manan on 12/08/20. KESHAWN drain remains in place. RN advised no SW needs at this time. SW will continue to follow.
--- NOTE | 2020-12-09 11:40 | PDOC2 ---
CONSULT Date of Consult Date of Consult DATE: 12/09/20 TIME: 11:40 Reason for Consult Reason for Consult: SHANE Source Source: Chart review, Patient History of Present Illness Reason for Visit: Patient is a 70-year-old CF with past medical history DM2, HTN, right breast cancer, who presents to the ED on 12/07 with complaints of worsening epigastric pain for the past 3 days. She reported sharp pain, 7/10, aggravated by deep inspiration. She also c/o associated nausea, vomiting, and anorexia. Denies any fever, diarrhea, shortness of breath or CP . She has been fully vaccinated against COVID-19. She Underwent Laparoscopic cholecystectomy with intraoperative cholangiogram on 12/08 ; Post Op Dx Acute gangrenous cholecystitis with perforation Patient denies any past history of Kidney issuses. She reports since her pain started on she has been taking 4 pills of Aleve at a time Q 8 hrs on an average . She reports since her surgery yesterday morning she produced only 1 tsp of Urine ; this morning had some more UOP but very dark. Denies Hx of UTI's, currently no dysuria . Denies any LE edema. Currently denies any N/V; states mouth feeling dry She has been on losartan for many years, No diuretics at home, only new med recently Lipitor and NSAID's . Losartan not held since hospitalization In the ED on labs showed WBC 42.1, platelets 431, CBG 337, AST 202, ALT 166, alkaline phos 148, BNP 1457 lactic acid 1.5, albumin 3.2. She received broad-spectrum antibiotics and IV fluids. CT abdomen/pelvis showed findings favored to represent acute cholecystitis. She received broad-spectrum antibiotics and IV fluids. She will be admitted with general surgery consultation. Past Medical History Past Medical History DM2, HLD, HTN, right breast cancer, seasonal allergies, cardiac arrhythmia Past Surgical History Past Surgical History Appendectomy, tonsillectomy, right 2nd toe amputation, left bone graft, right lumpectomy Family History Family History Non Contributory Social History Social History Smoke: No ALCOHOL: occassional Drugs: None No ALCOHOL: occassional Drugs: None Current Medications Current Medications Current Medications Morphine Sulfate (Morphine Sulfate) 4 mg 1X ONCE IVP Last administered on 12/06/20at 20:29; Start 12/06/20 at 20:30; Stop 12/06/20 at 20:31; Status DC Ondansetron HCl (Zofran) 4 mg 1X ONCE IVP Last administered on 12/06/20at 20:29; Start 12/06/20 at 20:30; Stop 12/06/20 at 20:31; Status DC Levofloxacin/ Dextrose 150 ml @ 100 mls/hr 1X ONCE IV Last administered on 12/06/20at 22:24; Start 12/06/20 at 21:00; Stop 12/06/20 at 22:29; Status DC Iohexol (Omnipaque 300 Mg/ml) 60 ml 1X ONCE IV Last administered on 12/06/20at 21:27; Start 12/06/20 at 21:00; Stop 12/06/20 at 21:01; Status DC Info (CONTRAST GIVEN -- Rx MONITORING) 1 each PRN DAILY PRN MC SEE COMMENTS; Start 12/06/20 at 21:15; Stop 12/08/20 at 21:14; Status DC Piperacillin Sod/ Tazobactam Sod 3.375 gm/Sodium Chloride 50 ml @ 100 mls/hr 1X ONCE IV Last administered on 12/07/20at 00:49; Start 12/06/20 at 22:00; Stop 12/06/20 at 22:29; Status DC Morphine Sulfate (Morphine Sulfate) 4 mg PRN Q2HR PRN IVP PAIN Last administered on 12/07/20at 13:35; Start 12/06/20 at 22:15; Stop 12/07/20 at 22:14; Status DC Sodium Chloride 1,000 ml @ 100 mls/hr Q10H IV Last administered on 12/07/20at 23:45; Start 12/06/20 at 22:15; Stop 12/07/20 at 22:14; Status DC Ondansetron HCl (Zofran) 4 mg PRN Q6HRS PRN IVP NAUSEA/VOMITING; Start 12/07/20 at 06:30 Al Hydroxide/Mg Hydroxide (Mylanta Plus Xs) 30 ml PRN Q3HRS PRN PO HEARTBURN / GAS; Start 12/07/20 at 06:30 Calcium Carbonate/ Glycine (Tums) 500 mg PRN Q3HRS PRN PO UPSET STOMACH; Start 12/07/20 at 06:30 Zolpidem Tartrate (Ambien) 5 mg PRN QHS PRN PO INSOMNIA, MAY REPEAT IN 1HR Last administered on 12/08/20at 23:34; Start 12/07/20 at 06:30 Acetaminophen (Tylenol) 650 mg PRN Q6HRS PRN PO Headaches, Temp > 101.5F; Start 12/07/20 at 06:30 Magnesium Hydroxide (Milk Of Magnesia) 2,400 mg PRN Q12HR PRN PO CONSTIPATION Last administered on 12/08/20at 17:09; Start 12/07/20 at 06:30 Heparin Sodium (Porcine) (Heparin Sodium) 5,000 unit Q8HRS SQ Last administered on 12/09/20at 06:18; Start 12/07/20 at 14:00 Losartan Potassium (Cozaar) 50 mg DAILY PO Last administered on 12/09/20at 10:04; Start 12/07/20 at 09:00 Non-Formulary Medication (Alendronate Sodium (Fosamax)) 70 mg WEEKLY PO ; Start 12/07/20 at 09:00; Status UNV Acetaminophen/ Butalbital/ Caffeine (Fioricet) 1 tab PRN TID PRN PO MIGRAINE HEADACHE Last administered on 12/09/20at 10:05; Start 12/07/20 at 06:45 Diltiazem HCl (Cardizem 24hr Cd) 240 mg BID PO Last administered on 12/09/20at 10:04; Start 12/07/20 at 09:00 Hydralazine HCl (Apresoline Inj) 10 mg PRN Q4HRS PRN IVP ELEVATED BP, SEE COMMENTS; Start 12/07/20 at 06:30 Labetalol HCl (Normodyne Iv Push) 20 mg PRN Q4HRS PRN IVP HYPERTENSION; Start 12/07/20 at 06:30 Insulin Glargine (Lantus Syringe) 15 unit QHS SQ Last administered on 12/08/20at 22:08; Start 12/07/20 at 21:00 Insulin Human Lispro (HumaLOG) 5 units TIDWMEALS SQ Last administered on 12/08/20at 17:56; Start 12/07/20 at 08:00 Dextrose (Dextrose 50%-Water Syringe) 12.5 gm PRN Q15MIN PRN IV SEE COMMENTS; Start 12/07/20 at 06:30 Insulin Human Lispro (HumaLOG) 0-9 UNITS TIDWMEALS SQ Last administered on 12/08/20at 17:57; Start 12/07/20 at 08:00 Piperacillin Sod/ Tazobactam Sod (Zosyn Per Pharmacy) 1 each PRN DAILY PRN MC SEE COMMENTS; Start 12/07/20 at 07:00 Piperacillin Sod/ Tazobactam Sod 3.375 gm/Sodium Chloride 50 ml @ 100 mls/hr Q6HRS IV Last administered on 12/09/20at 06:17; Start 12/07/20 at 07:30 Morphine Sulfate (Morphine Sulfate) 5 mg PRN Q4HRS PRN IV SEVERE PAIN 7-10 Last administered on 12/07/20at 22:55; Start 12/07/20 at 22:30 Fentanyl Citrate (Fentanyl 2ml Vial) 50 mcg PRN Q2HR PRN IVP PAIN MODERATE Last administered on 12/08/20at 10:25; Start 12/07/20 at 22:30 Iohexol (Omnipaque 300 Mg/ml) 50 ml STK-MED ONCE .ROUTE Last administered on 12/08/20at 08:23; Start 12/08/20 at 07:08; Stop 12/08/20 at 07:09; Status DC Cellulose (Surgicel Hemostat 4x8) 1 each STK-MED ONCE .ROUTE Last administered on 12/08/20at 08:23; Start 12/08/20 at 07:09; Stop 12/08/20 at 07:09; Status DC Bupivacaine HCl (Sensorcaine Mpf 0.5%) 30 ml STK-MED ONCE .ROUTE Last administered on 12/08/20at 08:23; Start 12/08/20 at 07:09; Stop 12/08/20 at 07:09; Status DC Propofol (Diprivan) 200 mg STK-MED ONCE IV ; Start 12/08/20 at 07:19; Stop at 07:19; Status DC Lidocaine HCl (Lidocaine Pf 2% Vial) 5 ml STK-MED ONCE .ROUTE ; Start 12/08/20 at 07:19; Stop 12/08/20 at 07:19; Status DC Dexamethasone Sodium Phosphate (Decadron) 4 mg STK-MED ONCE .ROUTE ; Start 12/08/20 at 07:19; Stop 12/08/20 at 07:19; Status DC Ondansetron HCl (Zofran) 4 mg STK-MED ONCE .ROUTE ; Start 12/08/20 at 07:19; Stop 12/08/20 at 07:19; Status DC Glycopyrrolate (Robinul) 1 mg STK-MED ONCE .ROUTE ; Start 12/08/20 at 07:19; Stop 12/08/20 at 07:20; Status DC Neostigmine [place] (Neostigmine Methylsulfate) 5 mg STK-MED ONCE .ROUTE ; Start 12/08/20 at 07:19; Stop 12/08/20 at 07:20; Status DC Fentanyl Citrate (Fentanyl 2ml Vial) 25 mcg PRN Q5MIN PRN IVP MILD PAIN 1-3; Start 12/08/20 at 07:30; Stop 12/08/20 at 20:00; Status DC Fentanyl Citrate (Fentanyl 2ml Vial) 50 mcg PRN Q5MIN PRN IVP MODERATE PAIN 4- 6; Start 12/08/20 at 07:30; Stop 12/08/20 at 20:00; Status DC Morphine Sulfate (Morphine Sulfate) 1 mg PRN Q10MIN PRN IVP SEVERE PAIN 7-10; Start 12/08/20 at 07:30; Stop 12/08/20 at 20:00; Status DC Ringer's Solution 1,000 ml @ 30 mls/hr Q24H IV Last administered on 12/08/20at 11:21; Start 12/08/20 at 07:30; Stop 12/08/20 at 19:29; Status DC Hydromorphone HCl (Dilaudid) 0.5 mg PRN Q10MIN PRN IVP SEVERE PAIN 7-10, 2nd CHOICE; Start 12/08/20 at 07:30; Stop 12/08/20 at 20:00; Status DC Prochlorperazine Edisylate (Compazine) 5 mg PACU PRN PRN IVP NAUSEA, MRX1; Start 12/08/20 at 07:30; Stop 12/08/20 at 20:00; Status DC Fentanyl Citrate (Fentanyl 2ml Vial) 100 mcg STK-MED ONCE .ROUTE ; Start 12/08/20 at 07:20; Stop 12/08/20 at 07:21; Status DC Phenylephrine HCl (PHENYLEPHRINE in 0.9% NACL PF) 1 mg STK-MED ONCE IV ; Start 12/08/20 at 08:34; Stop 12/08/20 at 08:34; Status DC Insulin Human Lispro (HumaLOG VIAL for OP,RR ONLY) 0-10 units PRN Q1HR PRN SQ PER PROTOCOL Last administered on 12/08/20at 09:55; Start 12/08/20 at 09:00; Stop 12/09/20 at 08:59; Status DC Neostigmine [place]bury (Neostigmine Methylsulfate) 5 mg STK-MED ONCE .ROUTE ; Star t 12/08/20 at 09:30; Stop 12/08/20 at 09:30; Status DC Glycopyrrolate (Robinul) 1 mg STK-MED ONCE .ROUTE ; Start 12/08/20 at 09:30; Stop 12/08/20 at 09:30; Status DC Acetaminophen/ Hydrocodone Bitart (Lortab 5/325) 1 tab PRN Q4HRS PRN PO MODERATE PAIN; Start 12/08/20 at 10:00 Fentanyl Citrate (Fentanyl 2ml Vial) 100 mcg STK-MED ONCE .ROUTE ; Start 12/08/20 at 10:12; Stop 12/08/20 at 10:13; Status DC Acetaminophen/ Hydrocodone Bitart (Lortab 5/325) 2 tab PRN Q4HRS PRN PO SEVERE PAIN; Start 12/08/20 at 10:45 Sodium Chloride 1,000 ml @ 75 mls/hr [id number] IV ; Start 12/09/20 at 11:15 Active Scripts Active Reported Famotidine 20 Mg Tablet 20 Mg PO HS Atorvastatin Calcium 10 Mg Tablet 1 Tab PO DAILY Vitamin C (Ascorbic Acid) 500 Mg Capsule.er 1 Cap PO DAILY 30 Days Januvia (Sitagliptin Phosphate) 100 Mg Tablet 1 Tab PO DAILY Hyaluronic Acid 40 Mg Capsule (Hyalur Ac/Chond Sul/Colg Ii/Aa) 1 Each Capsule 1 Each PO DAILY Omeprazole 20 Mg Tablet.dr 1 Tab PO DAILY Ondansetron Odt (Ondansetron) 4 Mg Tab.rapdis 1 Tab PO PRN Q6-8HRS [lipitor] [januvia] Fish Oil 1,000 Mg Capsule ([place]-3 Fatty Acids/Fish Oil) 1 Each Capsule 1 Each PO BID Ambien (Zolpidem Tartrate) 5 Mg Tablet 5 Mg PO HS PRN Fosamax (Alendronate Sodium) 70 Mg Tablet 70 Mg PO WEEKLY Losartan Potassium 50 Mg Tablet 50 Mg PO DAILY Multi Vitamin Daily (Multivitamin) 1 Each Tablet 1 Each PO DAILY Fiorinal 50-325-40 Mg Capsule (Butalbital/Aspirin/Caffeine) 1 Each Capsule 1 Each PO PRN TID PRN Metformin Hcl 1,000 Mg Tablet 1,000 Mg PO BIDWMEALS Zyrtec (Cetirizine Hcl) 10 Mg Capsule 10 Mg PO DAILY Diltiazem Er (Diltiazem Hcl) 240 Mg Cap.er.deg 240 Mg PO BID Allergies Allergies: Coded Allergies: Sulfa (Sulfonamide Antibiotics) (Verified Allergy, Severe, Tongue Swelling, 04/03/14) ROS Review of System As per HPI, rest of the ROS is negative Physical Exam Physical Exam General: Alert, Oriented X3, NAD HEENT: PERRLA, EOMI, OM dry Neck Supple Lungs: Clear to auscultation, Non labored Cardiovascular: S1, S2 Abdomen: soft. Extremities: No clubbing, No cyanosis, No edema Skin: No rashes, No significant lesion Neuro: Normal speech, Normal tone, Sensation intact Psych/Mental Status: Mental status NL, Mood NL No ling, No CVA or SP tenderness Vital Signs Vital Signs Date Time Temp Pulse Resp B/P (MAP) Pulse Ox O2 Delivery O2 Flow Rate FiO2 12/09/20 10:04 77 116/75 12/09/20 07:00 97.7 20 94 Room Air 97.7 12/08/20 15:00 2.0 Assessment & Plan SHANE - Suspect ATN ; cannot r/o AIN. Use of significant amount of NSAID's recently; Recd IV contrast , Hypotensive (Losartan not dced) , Oligoanuric per patient(UOP not recorded in the chart) Worsening renal function since prior to surgery ; No UTI on UA at presentation . Baseline Creat 1.0 at presentation (1.3 in 2019 x1) CT scan at presentation with distended bladder, rest unremarkable . Recommend IVF ; R/O Urinary retention , Strict I/O, Place Ling (as no UOP recorded without ling) , Hold Losartan, avoid Nephrotoxins Acute cholecystitis s/p Laparoscopic cholecystectomy with intraoperative cholangiogram on 12/08 ; Dx Acute gangrenous cholecystitis with perforation HypoNatremia - Restrict Free water intake; Continue IV NS . Monitor DM2 with hyperglycemia POA Transaminitis HTN- episodes of Low BP since surgery- as low as 88 systolic , still on l osartan, will dc Cardiac arrhythmia History of right breast cancer Labs Labs Laboratory Tests Test 12/07/20 12:34 12/07/20 16:46 12/07/20 20:56 12/08/20 07:20 Glucose (Fingerstick) 200 mg/dL (70-99) 190 mg/dL (70-99) 134 mg/dL (70-99) White Blood Count 31.1 x10^3/uL (4.0-11.0) Red Blood Count 3.70 x10^6/uL (3.50-5.40) Hemoglobin 11.2 g/dL (12.0-15.5) Hematocrit 34.3 % (36.0-47.0) Mean Corpuscular Volume 93 fL (79-100) Mean Corpuscular Hemoglobin 30 pg (25-35) Mean Corpuscular Hemoglobin Concent 33 g/dL (31-37) Red Cell Distribution Width 13.3 % (11.5-14.5) Platelet Count 375 x10^3/uL (140-400) Neutrophils (%) (Auto) 93 % (31-73) Lymphocytes (%) (Auto) 2 % (24-48) Monocytes (%) (Auto) 4 % (0-9) Eosinophils (%) (Auto) 0 % (0-3) Basophils (%) (Auto) 0 % (0-3) Neutrophils # (Auto) 28.9 x10^3/uL (1.8-7.7) Lymphocytes # (Auto) 0.7 x10^3/uL (1.0-4.8) Monocytes # (Auto) 1.4 x10^3/uL (0.0-1.1) Eosinophils # (Auto) 0.0 x10^3/uL (0.0-0.7) Basophils # (Auto) 0.0 x10^3/uL (0.0-0.2) Sodium Level 132 mmol/L (136-145) Potassium Level 4.6 mmol/L (3.5-5.1) Chloride Level 95 mmol/L (98-107) Carbon Dioxide Level 21 mmol/L (21-32) Anion Gap 16 (6-14) Blood Urea Nitrogen 32 mg/dL (7-20) Creatinine 2.6 mg/dL (0.6-1.0) Estimated GFR (Cockcroft-Gault) 18.2 Glucose Level 198 mg/dL (70-99) Calcium Level 8.2 mg/dL (8.5-10.1) Test 12/08/20 09:47 12/08/20 11:40 12/08/20 16:20 12/08/20 21:11 Glucose (Fingerstick) 203 mg/dL (70-99) 196 mg/dL (70-99) 183 mg/dL (70-99) 150 mg/dL (70-99) Test 12/09/20 07:30 12/09/20 08:06 12/09/20 11:20 White Blood Count 22.0 x10^3/uL (4.0-11.0) Red Blood Count 3.30 x10^6/uL (3.50-5.40) Hemoglobin 10.0 g/dL (12.0-15.5) Hematocrit 30.5 % (36.0-47.0) Mean Corpuscular Volume 92 fL (79-100) Mean Corpuscular Hemoglobin 30 pg (25-35) Mean Corpuscular Hemoglobin Concent 33 g/dL (31-37) Red Cell Distribution Width 13.5 % (11.5-14.5) Platelet Count 366 x10^3/uL (140-400) Neutrophils (%) (Auto) 91 % (31-73) Lymphocytes (%) (Auto) 5 % (24-48) Monocytes (%) (Auto) 5 % (0-9) Eosinophils (%) (Auto) 0 % (0-3) Basophils (%) (Auto) 0 % (0-3) Neutrophils # (Auto) 19.9 x10^3/uL (1.8-7.7) Lymphocytes # (Auto) 1.0 x10^3/uL (1.0-4.8) Monocytes # (Auto) 1.0 x10^3/uL (0.0-1.1) Eosinophils # (Auto) 0.0 x10^3/uL (0.0-0.7) Basophils # (Auto) 0.0 x10^3/uL (0.0-0.2) Sodium Level 129 mmol/L (136-145) Potassium Level 4.1 mmol/L (3.5-5.1) Chloride Level 94 mmol/L (98-107) Carbon Dioxide Level 19 mmol/L (21-32) Anion Gap 16 (6-14) Blood Urea Nitrogen 51 mg/dL (7-20) Creatinine 3.4 mg/dL (0.6-1.0) Estimated GFR (Cockcroft-Gault) 13.4 Glucose Level 149 mg/dL (70-99) Calcium Level 7.9 mg/dL (8.5-10.1) Glucose (Fingerstick) 156 mg/dL (70-99) 258 mg/dL (70-99) Laboratory Tests Test 12/08/20 16:20 12/08/20 21:11 12/09/20 07:30 12/09/20 08:06 Glucose (Fingerstick) 183 mg/dL (70-99) 150 mg/dL (70-99) 156 mg/dL (70-99) White Blood Count 22.0 x10^3/uL (4.0-11.0) Red Blood Count 3.30 x10^6/uL (3.50-5.40) Hemoglobin 10.0 g/dL (12.0-15.5) Hematocrit 30.5 % (36.0-47.0) Mean Corpuscular Volume 92 fL (79-100) Mean Corpuscular Hemoglobin 30 pg (25-35) Mean Corpuscular Hemoglobin Concent 33 g/dL (31-37) Red Cell Distribution Width 13.5 % (11.5-14.5) Platelet Count 366 x10^3/uL (140-400) Neutrophils (%) (Auto) 91 % (31-73) Lymphocytes (%) (Auto) 5 % (24-48) Monocytes (%) (Auto) 5 % (0-9) Eosinophils (%) (Auto) 0 % (0-3) Basophils (%) (Auto) 0 % (0-3) Neutrophils # (Auto) 19.9 x10^3/uL (1.8-7.7) Lymphocytes # (Auto) 1.0 x10^3/uL (1.0-4.8) Monocytes # (Auto) 1.0 x10^3/uL (0.0-1.1) Eosinophils # (Auto) 0.0 x10^3/uL (0.0-0.7) Basophils # (Auto) 0.0 x10^3/uL (0.0-0.2) Sodium Level 129 mmol/L (136-145) Potassium Level 4.1 mmol/L (3.5-5.1) Chloride Level 94 mmol/L (98-107) Carbon Dioxide Level 19 mmol/L (21-32) Anion Gap 16 (6-14) Blood Urea Nitrogen 51 mg/dL (7-20) Creatinine 3.4 mg/dL (0.6-1.0) Estimated GFR (Cockcroft-Gault) 13.4 Glucose Level 149 mg/dL (70-99) Calcium Level 7.9 mg/dL (8.5-10.1) Test 12/09/20 11:20 Glucose (Fingerstick) 258 mg/dL (70-99) Review All relevant outside records, renal labs, imaging studies, telemetry/EKG's were reviewed. Images Images CT abdomen and pelvis with contrast INDICATION: Epigastric pain TECHNIQUE: Sequential axial images through the abdomen and pelvis obtained following the administration of 60 mL of Omni 300 IV contrast. Sagittal and coronal reformatted images were reconstructed from the axial data and reviewed. Exposure: One or more of the following in the visualized dose reduction techniques were utilized for this examination: 1. Automated exposure control 2. Adjustment of the MA and/or KV according to patient size 3. Use of iterative of reconstructive technique Comparisons: 03/29/2018 FINDINGS: Heart size is normal. No pericardial effusion. Strandy opacities at dependent portion lungs likely representing atelectasis. No pleural effusion. Liver, spleen, pancreas and adrenals are unremarkable. Gallbladder is distended with adjacent fat stranding. No perinephric inflammation or hydronephrosis. No renal or ureteral calculi are identified. Bladder is partially distended and not well evaluated. Uterus not enlarged. No abnormal adnexal mass. Diverticulosis noted at the sigmoid colon without evidence of acute diverticulitis. Remainder of the large and small bowel are unremarkable. Appendix is nonidentified. No free intra-abdominal air or fluid. No obstruction. Abdominal aorta has a normal course and caliber. Abdominal vasculature is patent. No enlarged intra-abdominal lymph nodes are identified. No suspicious osseous lesions or acute fractures. IMPRESSION: Findings favored to represent acute cholecystitis. Correlate with symptomatology to determine the need for further imaging. ISABELL HEALY MD Dec 09, 2020 11:40
[2020-12-09] MEDS: IV NORMAL SALINE 1000ML BAG 1,000 ML IV SCH (12:25)
--- NOTE | 2020-12-09 12:40 | PDOC ---
[employer] PROGRESS NOTE Date of Service DOS: DATE: 12/09/20 TIME: 12:37 Chief Complaint Chief Complaint Postop day 1 laparoscopic cholecystectomy Acute kidney injury probably secondary to contrast? (Her baseline creatinine was 1 now her creatinine is 3.4) Resolving cholecystitis Service Diabetes Hypertension Hyperlipidemia Arrhythmias Transaminase-itis History of breast cancer History of Present Illness History of Present Illness 12/09/2020 Patient seen and examined Her creatinine bumped up to 3.4 (I suspect this might be contrast induced?) Discussed with RN Chart reviewed 70-year-old female with past medical history DM2, HTN, right breast cancer, who presents to the ED with complaints of worsening epigastric pain for the past 3 days. She reports sharp pain, 7/10, that is aggravated by deep inspiration. Associated nausea, vomiting, and anorexia. She denies any fever, diarrhea, shortness of breath, or recent injury. In the ED labs showed WBC 42.1, platelets 431, CBG 337, AST 202, ALT 166, alkaline phos 148, BNP 1457, troponin <0.017, lactic acid 1.5, albumin 3.2. She received broad-spectrum antibiotics and IV fluids. CT abdomen/pelvis showed findings favored to represent acute cholecystitis. She received broad-spectrum antibiotics and IV fluids. She has been fully vaccinated against COVID-19. She will be admitted with general surgery consultation. 12/08/2020: Afebrile. Pain increased overnight, increase as needed IV pain medication. Abdominal ultrasound showed acute calculus cholecystitis, without common bile duct dilation. Plan for surgery today. Vitals/I&O Vitals/I&O: Vital Signs Date Time Temp Pulse Resp B/P (MAP) Pulse Ox O2 Delivery O2 Flow Rate FiO2 12/09/20 10:04 77 116/75 12/09/20 07:00 97.7 20 94 Room Air 97.7 12/08/20 15:00 2.0 I & O 12/08/20 12/08/20 12/09/20 15:00 23:00 07:00 Intake Total 1200 ml 500 ml 300 ml Output Total 55 ml 50 ml Balance 1145 ml 500 ml 250 ml Physical Exam General: Alert, Oriented X3, Cooperative Heart: Regular rate Lungs: Clear Abdomen: Soft, Other (drain serosang) Extremities: No clubbing, No cyanosis Skin: No rashes Labs Labs: Laboratory Tests Test 12/08/20 16:20 12/08/20 21:11 12/09/20 07:30 12/09/20 08:06 Glucose (Fingerstick) 183 mg/dL (70-99) 150 mg/dL (70-99) 156 mg/dL (70-99) White Blood Count 22.0 x10^3/uL (4.0-11.0) Red Blood Count 3.30 x10^6/uL (3.50-5.40) Hemoglobin 10.0 g/dL (12.0-15.5) Hematocrit 30.5 % (36.0-47.0) Mean Corpuscular Volume 92 fL (79-100) Mean Corpuscular Hemoglobin 30 pg (25-35) Mean Corpuscular Hemoglobin Concent 33 g/dL (31-37) Red Cell Distribution Width 13.5 % (11.5-14.5) Platelet Count 366 x10^3/uL (140-400) Neutrophils (%) (Auto) 91 % (31-73) Lymphocytes (%) (Auto) 5 % (24-48) Monocytes (%) (Auto) 5 % (0-9) Eosinophils (%) (Auto) 0 % (0-3) Basophils (%) (Auto) 0 % (0-3) Neutrophils # (Auto) 19.9 x10^3/uL (1.8-7.7) Lymphocytes # (Auto) 1.0 x10^3/uL (1.0-4.8) Monocytes # (Auto) 1.0 x10^3/uL (0.0-1.1) Eosinophils # (Auto) 0.0 x10^3/uL (0.0-0.7) Basophils # (Auto) 0.0 x10^3/uL (0.0-0.2) Sodium Level 129 mmol/L (136-145) Potassium Level 4.1 mmol/L (3.5-5.1) Chloride Level 94 mmol/L (98-107) Carbon Dioxide Level 19 mmol/L (21-32) Anion Gap 16 (6-14) Blood Urea Nitrogen 51 mg/dL (7-20) Creatinine 3.4 mg/dL (0.6-1.0) Estimated GFR (Cockcroft-Gault) 13.4 Glucose Level 149 mg/dL (70-99) Calcium Level 7.9 mg/dL (8.5-10.1) Test 12/09/20 11:20 Glucose (Fingerstick) 258 mg/dL (70-99) Assessment and Plan Assessmemt and Plan Postop day 1 laparoscopic cholecystectomy Acute kidney injury probably secondary to contrast? (Her baseline creatinine was 1 now her creatinine is 3.4) Resolving cholecystitis Service Diabetes Hypertension Hyperlipidemia Arrhythmias Transaminase-itis History of breast cancer Plan: Consult nephrology IV fluids (normal saline at 75 an hour) Trend creatinine Antibiotics Wound care Provide IV pain management, and antiemetics. Basal/prandial insulin Resume home medications; denies any history of atrial fibrillation, but does state that she takes diltiazem for years for HTN/cardiac arrhythmia. FEN - NPO; then ADA diet. PPX - Heparin FULL CODE Dispo - inpatient for above Patient names Lora Andrade as her surrogate decision-maker Comment Review of Relevant I have reviewed the following items wally (where applicable) has been applied. Justifications for Admission General Conditions Other justification for admit: Acute cholecystitis Other Justification ANNABELLE SCHWARZ III DO Dec 09, 2020 12:40
[2020-12-09 15:00] VITALS: BP 105/47
[2020-12-09] MEDS: POLYETHYLENE GLYCOL 3350 17 GM PACKET. PO SCH (15:29)
[2020-12-09 19:00] VITALS: BP 114/65
[2020-12-09] MEDS: LACTOBACILLUS RHAMNOSUS GG 1 CAPSULE. PO SCH (20:58)
[2020-12-09] MEDS: INSULIN GLARGINE SYRINGE. SQ SCH (21:02)
[2020-12-09] MEDS: ZOLPIDEM 5 MG TABLET. PO PRN (21:03)
[2020-12-09 23:00] VITALS: BP 138/60
[2020-12-10] MEDS: PIPERACILLIN/TAZOBACTAM 3.375 GM in IV NORMAL SALINE 50ML 50 ML IV SCH ×5 (00:29→23:58)
[2020-12-10] MEDS: IV NORMAL SALINE 1000ML BAG 1,000 ML IV SCH ×2 (00:32→17:37)
[2020-12-10 03:00] VITALS: BP 136/60
[2020-12-10] MEDS: BUTALB/APAP/CAFEIN 50/325/40MG TABLET. PO PRN ×3 (05:58→23:58)
[2020-12-10] MEDS: HEPARIN for SUB-Q USE 5,000 UNIT/ML VIAL. SQ SCH ×3 (06:03→22:07)
[2020-12-10 07:00] VITALS: BP 139/73
[2020-12-10 07:34] LABS: BASO % 0 % (0-3); EOS # 0.1 x10^3/uL (0.0-0.7); EOS % 1 % (0-3); HEMATOCRIT 31.3 % (36.0-47.0); HEMOGLOBIN 10.5 g/dL (12.0-15.5); LYMPH # 1.2 x10^3/uL (1.0-4.8); LYMPH % 6 % (24-48); MEAN CORPUSCULAR HEMOGLOBIN 31 pg (25-35); MEAN CORPUSCULAR HGB CONC 34 g/dL (31-37); MEAN CORPUSCULAR VOLUME 91 fL (79-100); MONO # 1.3 x10^3/uL (0.0-1.1); MONO % 7 % (0-9); NEUT # 15.9 x10^3/uL (1.8-7.7); NEUT % 86 % (31-73); PLATELET COUNT 395 x10^3/uL (140-400); RED BLOOD COUNT 3.42 x10^6/uL (3.50-5.40); RED CELL DISTRIBUTION WIDTH 13.1 % (11.5-14.5); WHITE BLOOD COUNT 18.4 x10^3/uL (4.0-11.0)
[2020-12-10] MEDS: INSULIN LISPRO 300 UNITS/3 ML VIAL. SQ SCH ×6 (08:13→17:00)
[2020-12-10 08:15] LABS: ALBUMIN 1.9 g/dL (3.4-5.0); CALCIUM 8.2 mg/dL (8.5-10.1); CREATININE 4.3 mg/dL (0.6-1.0); DIRECT BILIRUBIN 0.5 mg/dL (0.0-0.2); GFR 10.2; POTASSIUM 3.8 mmol/L (3.5-5.1); TOTAL BILIRUBIN 0.8 mg/dL (0.2-1.0); TOTAL PROTEIN 6.6 g/dL (6.4-8.2)
--- NOTE | 2020-12-10 10:15 | PDOC ---
DATE OF SERVICE DATE: 12/10/20 TIME: 10:14 SUBJECTIVE ROS Resting comfortably Per RN she refused Ling yesterday She did agree for ling placement before I placed the order OBJECTIVE Vital Signs Vital Signs Date Time Temp Pulse Resp B/P (MAP) Pulse Ox O2 Delivery O2 Flow Rate FiO2 12/10/20 07:00 97.8 78 20 139/73 (95) 94 Room Air 97.8 12/10/20 03:00 2.0 I & 0 Intake and Output 12/10/20 07:00 Intake Total 240 ml Output Total 1365 ml Balance -1125 ml Intake Oral 240 ml Output Urine Total 1275 ml Drainage Total 90 ml # Voids 1 PHYSICAL EXAM Physical Exam General: Alert, Oriented X3, NAD HEENT: PERRLA, EOMI, OM moist Neck Supple Lungs: Clear to auscultation, Non labored Cardiovascular: S1, S2 Abdomen: soft. Extremities: No clubbing, No cyanosis, No edema Skin: No rashes, No significant lesion Neuro: Normal speech, Normal tone, Sensation intact Psych/Mental Status: Mental status NL, Mood NL No ling, No CVA or SP tenderness DIAGNOSIS/ASSESSMENT Assessment & Plan SHANE - Suspect ATN ; cannot r/o AIN. Use of significant amount of NSAID's recently; Recd IV contrast , Hypotensive (Losartan not dced) , Oligoanuric per patient(UOP not recorded in the chart) Worsening renal function since prior to surgery ; No UTI on UA at presentation . Baseline Creat 1.0 at presentation (1.3 in 2019 x1) CT scan at presentation with distended bladder, rest unremarkable .Continue IVF ;per nursing Patient refused Ling, though she was agreeable when I discussed with her yesterday Worsening renal function , R/O Urinary retention , Strict I/O, Losartan held , avoid Nephrotoxins Acute cholecystitis s/p Laparoscopic cholecystectomy with intraoperative cholangiogram on 12/08 ; Dx Acute gangrenous cholecystitis with perforation HypoNatremia - Restrict Free water intake; Continue IV NS . Monitor DM2 with hyperglycemia POA Transaminitis HTN- episodes of Low BP since surgery- as low as 88 systolic , still on losartan, will dc Cardiac arrhythmia History of right breast cancer COMMENT/RELEVANT DATA Meds Current Medications Medications (Trade) Dose Ordered Sig/Kaye Start Time Stop Time Status Last Admin Dose Admin Acetaminophen (Tylenol) 650 mg PRN Q6HRS PRN 12/07/20 06:30 Acetaminophen/ Butalbital/ Caffeine (Fioricet) 1 tab PRN TID PRN 12/07/20 06:45 12/10/20 05:58 1 TAB Acetaminophen/ Hydrocodone Bitart (Lortab 5/325) 2 tab PRN Q4HRS PRN 12/08/20 10:45 Al Hydroxide/Mg Hydroxide (Mylanta Plus Xs) 30 ml PRN Q3HRS PRN 12/07/20 06:30 Bupivacaine HCl (Sensorcaine Mpf 0.5%) 30 ml STK-MED ONCE 12/08/20 07:09 12/08/20 07:09 DC 12/08/20 08:23 10 ML Calcium Carbonate/ Glycine (Tums) 500 mg PRN Q3HRS PRN 12/07/20 06:30 Cellulose (Surgicel Hemostat 4x8) 1 each STK-MED ONCE 12/08/20 07:09 12/08/20 07:09 DC 12/08/20 08:23 1 EACH Dexamethasone Sodium Phosphate (Decadron) 4 mg STK-MED ONCE 12/08/20 07:19 12/08/20 07:19 DC Dextrose (Dextrose 50%-Water Syringe) 12.5 gm PRN Q15MIN PRN 12/07/20 06:30 Diltiazem HCl (Cardizem 24hr Cd) 240 mg BID 12/07/20 09:00 12/09/20 21:00 240 MG Fentanyl Citrate (Fentanyl 2ml Vial) 100 mcg STK-MED ONCE 12/08/20 10:12 12/08/20 10:13 DC Glycopyrrolate (Robinul) 1 mg STK-MED ONCE 12/08/20 09:30 12/08/20 09:30 DC Heparin Sodium (Porcine) (Heparin Sodium) 5,000 unit Q8HRS 12/07/20 14:00 12/10/20 06:03 5,000 UNIT Hydralazine HCl (Apresoline Inj) 10 mg PRN Q4HRS PRN 12/07/20 06:30 Hydromorphone HCl (Dilaudid) 0.5 mg PRN Q10MIN PRN 12/08/20 07:30 12/08/20 20:00 DC Info (CONTRAST GIVEN -- Rx MONITORING) 1 each PRN DAILY PRN 12/06/20 21:15 12/08/20 21:14 DC Insulin Glargine (Lantus Syringe) 15 unit QHS 12/07/20 21:00 12/09/20 21:02 15 UNIT Insulin Human Lispro (HumaLOG VIAL for OP,RR ONLY) 0-10 units PRN Q1HR PRN 12/08/20 09:00 12/09/20 08:59 DC 12/08/20 09:55 6 UNIT Insulin Human Lispro (HumaLOG) 0-9 UNITS TIDWMEALS 12/07/20 08:00 12/10/20 08:13 4 UNITS Iohexol (Omnipaque 300 Mg/ml) 50 ml STK-MED ONCE 12/08/20 07:08 12/08/20 07:09 DC 12/08/20 08:23 10 ML Labetalol HCl (Normodyne Iv Push) 20 mg PRN Q4HRS PRN 12/07/20 06:30 Lactobacillus Rhamnosus (Culturelle) 1 cap BID 12/09/20 21:00 12/09/20 20:58 1 CAP Levofloxacin/ Dextrose 150 ml @ 100 mls/hr 1X ONCE 12/06/20 21:00 12/06/20 22:29 DC 12/06/20 22:24 100 MLS/HR Lidocaine HCl (Lidocaine Pf 2% Vial) 5 ml STK-MED ONCE 12/08/20 07:19 12/08/20 07:19 DC Losartan Potassium (Cozaar) 50 mg DAILY 12/07/20 09:00 12/09/20 12:59 DC 12/09/20 10:04 50 MG Magnesium Hydroxide (Milk Of Magnesia) 2,400 mg PRN Q12HR PRN 12/07/20 06:30 12/08/20 17:09 2,400 MG Morphine Sulfate (Morphine Sulfate) 1 mg PRN Q10MIN PRN 12/08/20 07:30 12/08/20 20:00 DC Neostigmine [place] (Neostigmine Methylsulfate) 5 mg STK-MED ONCE 12/08/20 09:30 12/08/20 09:30 DC Non-Formulary Medication (Alendronate Sodium (Fosamax)) 70 mg WEEKLY 12/07/20 09:00 UNV Ondansetron HCl (Zofran) 4 mg STK-MED ONCE 12/08/20 07:19 12/08/20 07:19 DC Phenylephrine HCl (PHENYLEPHRINE in 0.9% NACL PF) 1 mg STK-MED ONCE 12/08/20 08:34 12/08/20 08:34 DC Piperacillin Sod/ Tazobactam Sod (Zosyn Per Pharmacy) 1 each PRN DAILY PRN 12/07/20 07:00 Piperacillin Sod/ Tazobactam Sod 3.375 gm/Sodium Chloride 50 ml @ 100 mls/hr Q6HRS 12/07/20 07:30 12/10/20 05:58 100 MLS/HR Polyethylene Glycol (miraLAX PACKET) 17 gm DAILY 12/09/20 13:00 12/09/20 15:29 17 GM Prochlorperazine Edisylate (Compazine) 5 mg PACU PRN PRN 12/08/20 07:30 12/08/20 20:00 DC Propofol (Diprivan) 200 mg STK-MED ONCE 12/08/20 07:19 12/08/20 07:19 DC Ringer's Solution 1,000 ml @ 30 mls/hr Q24H 12/08/20 07:30 12/08/20 19:29 DC 12/08/20 11:21 30 MLS/HR Sodium Chloride 1,000 ml @ 75 mls/hr [id number] 12/09/20 11:15 12/10/20 00:32 75 MLS/HR Zolpidem Tartrate (Ambien) 5 mg PRN QHS PRN 12/07/20 06:30 12/09/20 21:03 5 MG Lab Laboratory Tests Test 12/09/20 11:20 12/09/20 16:40 12/09/20 19:28 12/10/20 06:55 Glucose (Fingerstick) 258 mg/dL (70-99) 115 mg/dL (70-99) 183 mg/dL (70-99) White Blood Count 18.4 x10^3/uL (4.0-11.0) Red Blood Count 3.42 x10^6/uL (3.50-5.40) Hemoglobin 10.5 g/dL (12.0-15.5) Hematocrit 31.3 % (36.0-47.0) Mean Corpuscular Volume 91 fL (79-100) Mean Corpuscular Hemoglobin 31 pg (25-35) Mean Corpuscular Hemoglobin Concent 34 g/dL (31-37) Red Cell Distribution Width 13.1 % (11.5-14.5) Platelet Count 395 x10^3/uL (140-400) Neutrophils (%) (Auto) 86 % (31-73) Lymphocytes (%) (Auto) 6 % (24-48) Monocytes (%) (Auto) 7 % (0-9) Eosinophils (%) (Auto) 1 % (0-3) Basophils (%) (Auto) 0 % (0-3) Neutrophils # (Auto) 15.9 x10^3/uL (1.8-7.7) Lymphocytes # (Auto) 1.2 x10^3/uL (1.0-4.8) Monocytes # (Auto) 1.3 x10^3/uL (0.0-1.1) Eosinophils # (Auto) 0.1 x10^3/uL (0.0-0.7) Basophils # (Auto) 0.0 x10^3/uL (0.0-0.2) Sodium Level 126 mmol/L (136-145) Potassium Level 3.8 mmol/L (3.5-5.1) Chloride Level 91 mmol/L (98-107) Carbon Dioxide Level 17 mmol/L (21-32) Anion Gap 18 (6-14) Blood Urea Nitrogen 64 mg/dL (7-20) Creatinine 4.3 mg/dL (0.6-1.0) Estimated GFR (Cockcroft-Gault) 10.2 Glucose Level 174 mg/dL (70-99) Calcium Level 8.2 mg/dL (8.5-10.1) Total Bilirubin 0.8 mg/dL (0.2-1.0) Direct Bilirubin 0.5 mg/dL (0.0-0.2) Aspartate Amino Transf (AST/SGOT) 40 U/L (15-37) Alanine Aminotransferase (ALT/SGPT) 71 U/L (14-59) Alkaline Phosphatase 135 U/L (46-116) Total Protein 6.6 g/dL (6.4-8.2) Albumin 1.9 g/dL (3.4-5.0) Test 12/10/20 07:19 Glucose (Fingerstick) 191 mg/dL (70-99) Results All relevant outside records, renal labs, imaging studies, telemetry/EKG's were reviewed. Justicifation of Admission Dx: Justifications for Admission: Justification of Admission Dx: Yes ISABELL HEALY MD Dec 10, 2020 10:14
--- NOTE | 2020-12-10 10:53 | PDOC ---
SURGICAL PROGRESS NOTE DATE: 12/10/20 TIME: 10:52 Subjective resting sore Vital Signs Vital Signs Date Time Temp Pulse Resp B/P (MAP) Pulse Ox O2 Delivery O2 Flow Rate FiO2 12/10/20 08:00 Room Air 12/10/20 07:00 97.8 78 20 139/73 (95) 94 97.8 12/10/20 03:00 2.0 I&O Intake and Output 12/10/20 07:00 Intake Total 240 ml Output Total 1365 ml Balance -1125 ml Intake Oral 240 ml Output Urine Total 1275 ml Drainage Total 90 ml # Voids 1 General: Alert, Cooperative Abdomen: Soft, Other (lap dressings dry, ambrocio serosang ) Labs Laboratory Tests Test 12/08/20 11:40 12/08/20 16:20 12/08/20 21:11 12/09/20 07:30 Glucose (Fingerstick) 196 mg/dL (70-99) 183 mg/dL (70-99) 150 mg/dL (70-99) White Blood Count 22.0 x10^3/uL (4.0-11.0) Red Blood Count 3.30 x10^6/uL (3.50-5.40) Hemoglobin 10.0 g/dL (12.0-15.5) Hematocrit 30.5 % (36.0-47.0) Mean Corpuscular Volume 92 fL (79-100) Mean Corpuscular Hemoglobin 30 pg (25-35) Mean Corpuscular Hemoglobin Concent 33 g/dL (31-37) Red Cell Distribution Width 13.5 % (11.5-14.5) Platelet Count 366 x10^3/uL (140-400) Neutrophils (%) (Auto) 91 % (31-73) Lymphocytes (%) (Auto) 5 % (24-48) Monocytes (%) (Auto) 5 % (0-9) Eosinophils (%) (Auto) 0 % (0-3) Basophils (%) (Auto) 0 % (0-3) Neutrophils # (Auto) 19.9 x10^3/uL (1.8-7.7) Lymphocytes # (Auto) 1.0 x10^3/uL (1.0-4.8) Monocytes # (Auto) 1.0 x10^3/uL (0.0-1.1) Eosinophils # (Auto) 0.0 x10^3/uL (0.0-0.7) Basophils # (Auto) 0.0 x10^3/uL (0.0-0.2) Sodium Level 129 mmol/L (136-145) Potassium Level 4.1 mmol/L (3.5-5.1) Chloride Level 94 mmol/L (98-107) Carbon Dioxide Level 19 mmol/L (21-32) Anion Gap 16 (6-14) Blood Urea Nitrogen 51 mg/dL (7-20) Creatinine 3.4 mg/dL (0.6-1.0) Estimated GFR (Cockcroft-Gault) 13.4 Glucose Level 149 mg/dL (70-99) Calcium Level 7.9 mg/dL (8.5-10.1) Creatine Kinase 143 U/L (26-192) Test 12/09/20 08:06 12/09/20 11:20 12/09/20 16:40 12/09/20 19:28 Glucose (Fingerstick) 156 mg/dL (70-99) 258 mg/dL (70-99) 115 mg/dL (70-99) 183 mg/dL (70-99) Test 12/10/20 06:55 12/10/20 07:19 White Blood Count 18.4 x10^3/uL (4.0-11.0) Red Blood Count 3.42 x10^6/uL (3.50-5.40) Hemoglobin 10.5 g/dL (12.0-15.5) Hematocrit 31.3 % (36.0-47.0) Mean Corpuscular Volume 91 fL (79-100) Mean Corpuscular Hemoglobin 31 pg (25-35) Mean Corpuscular Hemoglobin Concent 34 g/dL (31-37) Red Cell Distribution Width 13.1 % (11.5-14.5) Platelet Count 395 x10^3/uL (140-400) Neutrophils (%) (Auto) 86 % (31-73) Lymphocytes (%) (Auto) 6 % (24-48) Monocytes (%) (Auto) 7 % (0-9) Eosinophils (%) (Auto) 1 % (0-3) Basophils (%) (Auto) 0 % (0-3) Neutrophils # (Auto) 15.9 x10^3/uL (1.8-7.7) Lymphocytes # (Auto) 1.2 x10^3/uL (1.0-4.8) Monocytes # (Auto) 1.3 x10^3/uL (0.0-1.1) Eosinophils # (Auto) 0.1 x10^3/uL (0.0-0.7) Basophils # (Auto) 0.0 x10^3/uL (0.0-0.2) Sodium Level 126 mmol/L (136-145) Potassium Level 3.8 mmol/L (3.5-5.1) Chloride Level 91 mmol/L (98-107) Carbon Dioxide Level 17 mmol/L (21-32) Anion Gap 18 (6-14) Blood Urea Nitrogen 64 mg/dL (7-20) Creatinine 4.3 mg/dL (0.6-1.0) Estimated GFR (Cockcroft-Gault) 10.2 Glucose Level 174 mg/dL (70-99) Calcium Level 8.2 mg/dL (8.5-10.1) Total Bilirubin 0.8 mg/dL (0.2-1.0) Direct Bilirubin 0.5 mg/dL (0.0-0.2) Aspartate Amino Transf (AST/SGOT) 40 U/L (15-37) Alanine Aminotransferase (ALT/SGPT) 71 U/L (14-59) Alkaline Phosphatase 135 U/L (46-116) Total Protein 6.6 g/dL (6.4-8.2) Albumin 1.9 g/dL (3.4-5.0) Glucose (Fingerstick) 191 mg/dL (70-99) Laboratory Tests Test 12/09/20 11:20 12/09/20 16:40 12/09/20 19:28 12/10/20 06:55 Glucose (Fingerstick) 258 mg/dL (70-99) 115 mg/dL (70-99) 183 mg/dL (70-99) White Blood Count 18.4 x10^3/uL (4.0-11.0) Red Blood Count 3.42 x10^6/uL (3.50-5.40) Hemoglobin 10.5 g/dL (12.0-15.5) Hematocrit 31.3 % (36.0-47.0) Mean Corpuscular Volume 91 fL (79-100) Mean Corpuscular Hemoglobin 31 pg (25-35) Mean Corpuscular Hemoglobin Concent 34 g/dL (31-37) Red Cell Distribution Width 13.1 % (11.5-14.5) Platelet Count 395 x10^3/uL (140-400) Neutrophils (%) (Auto) 86 % (31-73) Lymphocytes (%) (Auto) 6 % (24-48) Monocytes (%) (Auto) 7 % (0-9) Eosinophils (%) (Auto) 1 % (0-3) Basophils (%) (Auto) 0 % (0-3) Neutrophils # (Auto) 15.9 x10^3/uL (1.8-7.7) Lymphocytes # (Auto) 1.2 x10^3/uL (1.0-4.8) Monocytes # (Auto) 1.3 x10^3/uL (0.0-1.1) Eosinophils # (Auto) 0.1 x10^3/uL (0.0-0.7) Basophils # (Auto) 0.0 x10^3/uL (0.0-0.2) Sodium Level 126 mmol/L (136-145) Potassium Level 3.8 mmol/L (3.5-5.1) Chloride Level 91 mmol/L (98-107) Carbon Dioxide Level 17 mmol/L (21-32) Anion Gap 18 (6-14) Blood Urea Nitrogen 64 mg/dL (7-20) Creatinine 4.3 mg/dL (0.6-1.0) Estimated GFR (Cockcroft-Gault) 10.2 Glucose Level 174 mg/dL (70-99) Calcium Level 8.2 mg/dL (8.5-10.1) Total Bilirubin 0.8 mg/dL (0.2-1.0) Direct Bilirubin 0.5 mg/dL (0.0-0.2) Aspartate Amino Transf (AST/SGOT) 40 U/L (15-37) Alanine Aminotransferase (ALT/SGPT) 71 U/L (14-59) Alkaline Phosphatase 135 U/L (46-116) Total Protein 6.6 g/dL (6.4-8.2) Albumin 1.9 g/dL (3.4-5.0) Test 12/10/20 07:19 Glucose (Fingerstick) 191 mg/dL (70-99) Assessment/Plan s/p manan continue drain, abx LFTS improved ongoing renal issues, as per renal Justicifation of Admission Dx: Justifications for Admission: Justification of Admission Dx: Yes TABITHA MAGDALENO TRAINING DEVELOPMENT DIRECTOR Dec 10, 2020 10:53
[2020-12-10] MEDS: ACETAMINOPHEN 325 MG TABLET. PO PRN (10:57)
[2020-12-10] MEDS: POLYETHYLENE GLYCOL 3350 17 GM PACKET. PO SCH (10:57)
[2020-12-10] MEDS: LACTOBACILLUS RHAMNOSUS GG 1 CAPSULE. PO SCH ×2 (10:58→22:01)
[2020-12-10 11:00] VITALS: BP 117/63
--- NOTE | 2020-12-10 13:08 | PDOC ---
[employer] PROGRESS NOTE Date of Service DOS: DATE: 12/10/20 TIME: 12:59 Chief Complaint Chief Complaint Postop day 1 laparoscopic cholecystectomy Acute kidney injury probably secondary to contrast? (Her baseline creatinine was 1 now her creatinine is 3.4) Resolving cholecystitis Service Diabetes Hypertension Hyperlipidemia Arrhythmias Transaminase-itis History of breast cancer History of Present Illness History of Present Illness 12/10: Pt was seen, examined, and their chart was reviewed. Pt's creatinine bumped up again to 4.3, thus we awaiting to see further results with continued IV Fluids. Discussed with RN and SW. 12/09/2020 Patient seen and examined Her creatinine bumped up to 3.4 (I suspect this might be contrast induced?) Discussed with RN Chart reviewed 70-year-old female with past medical history DM2, HTN, right breast cancer, who presents to the ED with complaints of worsening epigastric pain for the past 3 days. She reports sharp pain, 7/10, that is aggravated by deep inspiration. Associated nausea, vomiting, and anorexia. She denies any fever, diarrhea, shortness of breath, or recent injury. In the ED labs showed WBC 42.1, platelets 431, CBG 337, AST 202, ALT 166, alkaline phos 148, BNP 1457, troponin <0.017, lactic acid 1.5, albumin 3.2. She received broad-spectrum antibiotics and IV fluids. CT abdomen/pelvis showed findings favored to represent acute cholecystitis. She received broad-spectrum antibiotics and IV fluids. She has been fully vaccinated against COVID-19. She will be admitted with general alex yayo consultation. 12/08/2020: Afebrile. Pain increased overnight, increase as needed IV pain medication. Abdominal ultrasound showed acute calculus cholecystitis, without common bile duct dilation. Plan for surgery today. Vitals/I&O Vitals/I&O: Vital Signs Date Time Temp Pulse Resp B/P (MAP) Pulse Ox O2 Delivery O2 Flow Rate FiO2 12/10/20 11:00 98.5 76 20 117/63 (81) 95 Room Air 98.5 12/10/20 03:00 2.0 I & O 12/09/20 12/09/20 12/10/20 15:00 23:00 07:00 Intake Total 240 ml Output Total 300 ml 600 ml 465 ml Balance -300 ml -600 ml -225 ml Physical Exam General: Alert, Cooperative Heart: Regular rate Lungs: Clear Abdomen: Soft, Other (lap dressings dry, ambrocio serosang ) Extremities: No clubbing, No cyanosis Skin: No rashes Labs Labs: Laboratory Tests Test 12/09/20 16:40 12/09/20 19:28 12/10/20 06:55 12/10/20 07:19 Glucose (Fingerstick) 115 mg/dL (70-99) 183 mg/dL (70-99) 191 mg/dL (70-99) White Blood Count 18.4 x10^3/uL (4.0-11.0) Red Blood Count 3.42 x10^6/uL (3.50-5.40) Hemoglobin 10.5 g/dL (12.0-15.5) Hematocrit 31.3 % (36.0-47.0) Mean Corpuscular Volume 91 fL (79-100) Mean Corpuscular Hemoglobin 31 pg (25-35) Mean Corpuscular Hemoglobin Concent 34 g/dL (31-37) Red Cell Distribution Width 13.1 % (11.5-14.5) Platelet Count 395 x10^3/uL (140-400) Neutrophils (%) (Auto) 86 % (31-73) Lymphocytes (%) (Auto) 6 % (24-48) Monocytes (%) (Auto) 7 % (0-9) Eosinophils (%) (Auto) 1 % (0-3) Basophils (%) (Auto) 0 % (0-3) Neutrophils # (Auto) 15.9 x10^3/uL (1.8-7.7) Lymphocytes # (Auto) 1.2 x10^3/uL (1.0-4.8) Monocytes # (Auto) 1.3 x10^3/uL (0.0-1.1) Eosinophils # (Auto) 0.1 x10^3/uL (0.0-0.7) Basophils # (Auto) 0.0 x10^3/uL (0.0-0.2) Sodium Level 126 mmol/L (136-145) Potassium Level 3.8 mmol/L (3.5-5.1) Chloride Level 91 mmol/L (98-107) Carbon Dioxide Level 17 mmol/L (21-32) Anion Gap 18 (6-14) Blood Urea Nitrogen 64 mg/dL (7-20) Creatinine 4.3 mg/dL (0.6-1.0) Estimated GFR (Cockcroft-Gault) 10.2 Glucose Level 174 mg/dL (70-99) Calcium Level 8.2 mg/dL (8.5-10.1) Total Bilirubin 0.8 mg/dL (0.2-1.0) Direct Bilirubin 0.5 mg/dL (0.0-0.2) Aspartate Amino Transf (AST/SGOT) 40 U/L (15-37) Alanine Aminotransferase (ALT/SGPT) 71 U/L (14-59) Alkaline Phosphatase 135 U/L (46-116) Total Protein 6.6 g/dL (6.4-8.2) Albumin 1.9 g/dL (3.4-5.0) Test 12/10/20 12:00 Glucose (Fingerstick) 152 mg/dL (70-99) Review of Systems Review of Systems: ROS Negative. Assessment and Plan Assessmemt and Plan Postop day 2 laparoscopic cholecystectomy Acute kidney injury -> probably secondary to contrast? (Her baseline creatinine was 1 now her creatinine is 4.3) Resolving cholecystitis Service Diabetes Hypertension Hyperlipidemia Arrhythmias Transaminase-itis History of breast cancer Plan: - Continue IV fluids (normal saline at 75 an hour) - Trend labs for creatinine - Antibiotics - PTOT - Wound care - Provide IV pain management, and antiemetics. - DVT Prophylaxis - Basal/prandial insulin - Resume home medications; denies any history of atrial fibrillation, but does state that she takes diltiazem for years for HTN/cardiac arrhythmia. FEN - NPO; then ADA diet. PPX - Heparin FULL CODE Dispo - inpatient for above Patient names Loracandelario Andrade as her surrogate decision-maker Comment Review of Relevant I have reviewed the following items wally (where applicable) has been applied. Medications: Current Medications Medications (Trade) Dose Ordered Sig/Kaye Route PRN Reason Start Time Stop Time Status Last Admin Dose Admin Polyethylene Glycol (miraLAX PACKET) 17 gm DAILY PO 12/09/20 13:00 12/10/20 10:57 Lactobacillus Rhamnosus (Culturelle) 1 cap BID PO 12/09/20 21:00 12/10/20 10:58 Justifications for Admission General Conditions Other justification for admit: Acute cholecystitis Other Justification ANNABELLE SCHWARZ III DO Dec 10, 2020 13:08
[2020-12-10 15:00] VITALS: BP 118/71
--- NOTE | 2020-12-10 17:06 | PATHOLOGY ---
[facility] Accession Number: [id number] . 01 Material submitted: . gallbladder - GALLBLADDER . 01 Clinical history: . LAPAROSCOPIC CHOLECYSTECTOMY . 02 Diagnosis: Gallbladder, laparoscopic cholecystectomy: - Cholelithiasis. - Cholesterolosis. - Acute necrotizing (gangrenous) and chronic cholecystitis. ([facility]; 12/10/2020) QTP 12/10/2020 0903 Local . 02 Comment: There is no evidence of malignancy. ([place]:[facility]; 12/10/2020) . . 02 Electronically signed: . Aravind Rothman MD, Pathologist NPI- [id number] . 01 Gross description: . Fixative: Formalin Labeled: Gallbladder Specimen received: Previously disrupted with a transmural defect (0.9 x 0.8 cm) Dimensions: 9.5 x 4.5 x 2.0 cm Lymph node: None Serosa: Blue-green, dusky, and focally slightly thickened and with multiple attached portion of yellow-carson tissue, ranging from 0.9 x 0.7 x 0.5 cm to 1.7 x 0.7 x 0.3 cm Calculi: 2 bosselated, phillips-yellow choleliths aggregating 2.6 x 1.4 x 0.9 cm Mucosa: Green and velvety with minimal phillips stippling Wall thickness: Ranges from 0.3 cm to 0.9 cm Abnormalities: None A1-A2: Gallbladder, represented A3-A4: Segments of yellow-carson tissue, entirely submitted ([facility]; 12/09/2020) DKA/DKA 12/10/2020 0902 Local . 02 Pathologist provided ICD-10: K80.12 . 02 CPT . 162817 Specimen Comment: A courtesy copy of this report has been sent to [phone] Specimen Comment: Report sent to Specimen Comment: A duplicate report has been generated due to demographic updates. Performed at: 01 [facility] [address] [id number] MD Shakeel Perdomo MD Phone: [phone] Performed at: 02 [facility] [address] [place], [place] [id number] MD Aravind Rothman MD Phone: [phone]
[2020-12-10 19:00] VITALS: BP 144/70
[2020-12-10] MEDS: ZOLPIDEM 5 MG TABLET. PO PRN (22:01)
[2020-12-10] MEDS: INSULIN GLARGINE SYRINGE. SQ SCH (22:22)
[2020-12-10 23:00] VITALS: BP 152/75
--- NOTE | 2020-12-11 02:45 | NUR ---
Patient reporting SOA, coughing, felt like she had some difficulty in breathing, oxygen on r/a 94%, b/p 130/74/ hr 86, rr 20, Did assist patient to ambulate in hallway, as she did not want to do the IS, she reports she does use the IS every 2 hours, not witnessed per this instructional writer, monitoring
[2020-12-11 03:00] VITALS: BP 130/74
[2020-12-11] MEDS ORDERED: IPRATRPIUM/ALBUTEROL 0.5/2.5MG 3 ML NEBU. NEB ONE (04:00)
[2020-12-11] MEDS: ACETAMINOPHEN 325 MG TABLET. PO PRN (04:16)
[2020-12-11] MEDS: HEPARIN for SUB-Q USE 5,000 UNIT/ML VIAL. SQ SCH ×3 (06:00→21:32)
[2020-12-11] MEDS: PIPERACILLIN/TAZOBACTAM 3.375 GM in IV NORMAL SALINE 50ML 50 ML IV SCH ×2 (06:06→13:03)
[2020-12-11 07:00] VITALS: BP 125/71
[2020-12-11 07:26] LABS: CALCIUM 9.4 mg/dL (8.5-10.1); CREATININE 4.9 mg/dL (0.6-1.0); GFR 8.8
[2020-12-11 07:45] LABS: BASO % 0 % (0-3); EOS # 0.2 x10^3/uL (0.0-0.7); EOS % 1 % (0-3); HEMATOCRIT 35.5 % (36.0-47.0); HEMOGLOBIN 11.5 g/dL (12.0-15.5); LYMPH # 1.7 x10^3/uL (1.0-4.8); LYMPH % 13 % (24-48); MEAN CORPUSCULAR HEMOGLOBIN 30 pg (25-35); MEAN CORPUSCULAR HGB CONC 32 g/dL (31-37); MEAN CORPUSCULAR VOLUME 92 fL (79-100); MONO % 8 % (0-9); NEUT # 9.7 x10^3/uL (1.8-7.7); NEUT % 77 % (31-73); PLATELET COUNT 390 x10^3/uL (140-400); RED BLOOD COUNT 3.86 x10^6/uL (3.50-5.40); RED CELL DISTRIBUTION WIDTH 13.4 % (11.5-14.5); WHITE BLOOD COUNT 12.6 x10^3/uL (4.0-11.0)
[2020-12-11] MEDS: INSULIN LISPRO 300 UNITS/3 ML VIAL. SQ SCH ×6 (08:00→18:20)
[2020-12-11] MEDS: POLYETHYLENE GLYCOL 3350 17 GM PACKET. PO SCH (09:00)
--- NOTE | 2020-12-11 09:13 | PDOC ---
[employer] PROGRESS NOTE Date of Service DOS: DATE: 12/11/20 TIME: 09:06 Chief Complaint Chief Complaint Postop day 3 laparoscopic cholecystectomy Acute kidney injury probably secondary to contrast? (Her baseline creatinine was 1 now her creatinine is 3.4) Resolving cholecystitis Service Diabetes Hypertension Hyperlipidemia Arrhythmias Transaminase-itis History of breast cancer History of Present Illness History of Present Illness 12/11: Pt was seen, examined, and their chart was reviewed. Pt's creatinine has increased again to 4.9, so will continue to give IV fluids and hold off on dialysis for now since the pt's O2 levels are fine. Discussed with RN and JAXON. 12/10: Pt was seen, examined, and their chart was reviewed. Pt's creatinine bumped up again to 4.3, thus we awaiting to see further results with continued IV Fluids. Discussed with RN and JAXON. 12/09/2020 Patient seen and examined Her creatinine bumped up to 3.4 (I suspect this might be contrast induced?) Discussed with RN Chart reviewed 70-year-old female with past medical history DM2, HTN, right breast cancer, who presents to the ED with complaints of worsening epigastric pain for the past 3 days. She reports sharp pain, 7/10, that is aggravated by deep inspiration. Associated nausea, vomiting, and anorexia. She denies any fever, diarrhea, shortness of breath, or recent injury. In the ED labs showed WBC 42.1, platelets 431, CBG 337, AST 202, ALT 166, alkaline phos 148, BNP 1457, troponin <0.017, lactic acid 1.5, albumin 3.2. She received broad-spectrum antibiotics and IV fluids. CT abdomen/pelvis showed findings favored to represent acute cholecystitis. She received broad-spectrum antibiotics and IV fluids. She has been fully vaccinated against COVID-19. She will be admitted with general surgery consultation. 12/08/2020: Afebrile. Pain increased overnight, increase as needed IV pain medication. Abdominal ultrasound showed acute calculus cholecystitis, without common bile duct dilation. Plan for surgery today. Vitals/I&O Vitals/I&O: Vital Signs Date Time Temp Pulse Resp B/P (MAP) Pulse Ox O2 Delivery O2 Flow Rate FiO2 12/11/20 07:00 97.2 89 20 125/71 (89) 96 Room Air 97.2 12/11/20 03:00 2.0 I & O 12/10/20 12/10/20 12/11/20 15:00 23:00 07:00 Intake Total 370 ml 170 ml 100 ml Output Total 460 ml Balance 370 ml 170 ml -360 ml Physical Exam General: Alert, Cooperative Heart: Regular rate Lungs: Clear Abdomen: Soft, Other (lap dressings dry, ambrocio serosang ) Extremities: No clubbing, No cyanosis Skin: No rashes Labs Labs: Laboratory Tests Test 12/10/20 12:00 12/10/20 16:56 12/10/20 20:00 12/11/20 06:55 Glucose (Fingerstick) 152 mg/dL (70-99) 68 mg/dL (70-99) 101 mg/dL (70-99) White Blood Count 12.6 x10^3/uL (4.0-11.0) Red Blood Count 3.86 x10^6/uL (3.50-5.40) Hemoglobin 11.5 g/dL (12.0-15.5) Hematocrit 35.5 % (36.0-47.0) Mean Corpuscular Volume 92 fL (79-100) Mean Corpuscular Hemoglobin 30 pg (25-35) Mean Corpuscular Hemoglobin Concent 32 g/dL (31-37) Red Cell Distribution Width 13.4 % (11.5-14.5) Platelet Count 390 x10^3/uL (140-400) Neutrophils (%) (Auto) 77 % (31-73) Lymphocytes (%) (Auto) 13 % (24-48) Monocytes (%) (Auto) 8 % (0-9) Eosinophils (%) (Auto) 1 % (0-3) Basophils (%) (Auto) 0 % (0-3) Neutrophils # (Auto) 9.7 x10^3/uL (1.8-7.7) Lymphocytes # (Auto) 1.7 x10^3/uL (1.0-4.8) Monocytes # (Auto) 1.0 x10^3/uL (0.0-1.1) Eosinophils # (Auto) 0.2 x10^3/uL (0.0-0.7) Basophils # (Auto) 0.0 x10^3/uL (0.0-0.2) Sodium Level 132 mmol/L (136-145) Potassium Level 4.0 mmol/L (3.5-5.1) Chloride Level 94 mmol/L (98-107) Carbon Dioxide Level 16 mmol/L (21-32) Anion Gap 22 (6-14) Blood Urea Nitrogen 69 mg/dL (7-20) Creatinine 4.9 mg/dL (0.6-1.0) Estimated GFR (Cockcroft-Gault) 8.8 Glucose Level 112 mg/dL (70-99) Calcium Level 9.4 mg/dL (8.5-10.1) Test 12/11/20 07:26 Glucose (Fingerstick) 119 mg/dL (70-99) Review of Systems Review of Systems: ROS Negative Assessment and Plan Assessmemt and Plan Post-Op Day 3 laparoscopic cholecystectomy Acute kidney injury -> probably secondary to contrast? (Her baseline creatinine was 1 now her creatinine is 4.3) Resolving cholecystitis Service Diabetes Hypertension Hyperlipidemia Arrhythmias Transaminase-itis History of breast cancer Plan: - Continue IV fluids (normal saline at 75 an hour) - Continue to trend labs for creatinine (since it went up to 4.9 today) - Hold off on dialysis for now since the pt's O2 levels are fine - Antibiotics - PTOT - Wound care - Provide IV pain management, and antiemetics. - DVT Prophylaxis - Basal/prandial insulin - Resume home medications; denies any history of atrial fibrillation, but does state that she takes diltiazem for years for HTN/cardiac arrhythmia. - Await for further input from nephrology FEN - NPO; then ADA diet. PPX - Heparin FULL CODE Dispo - inpatient for above Patient names Lora Andrade as her surrogate decision-maker Comment Review of Relevant I have reviewed the following items wally (where applicable) has been applied. Medications: Current Medications Medications (Trade) Dose Ordered Sig/Kaye Route PRN Reason Start Time Stop Time Status Last Admin Dose Admin Albuterol/ Ipratropium (Duoneb) 3 ml 1X ONCE NEB 12/11/20 04:00 12/11/20 04:01 DC 12/11/20 04:00 Justifications for Admission General Conditions Other justification for admit: Acute cholecystitis Other Justification ANNABELLE SCHWARZ III DO Dec 11, 2020 09:13
[2020-12-11 09:29] LABS: % EOS 2 % (0-5); % LYMPHS 19 % (24-48); % MONOS 6 % (0-10); % SEGS 73 % (35-66); PLT ESTIMATE ADEQUATE (ADEQUATE)
--- NOTE | 2020-12-11 09:39 | PDOC ---
DATE OF SERVICE DATE: 12/11/20 TIME: 09:38 SUBJECTIVE ROS Sleeping comfortably , On RA, easily arousable Denies N/V . No SOB. Doesnt like hospital food Agreed for Ling yesterday OBJECTIVE Vital Signs Vital Signs Date Time Temp Pulse Resp B/P (MAP) Pulse Ox O2 Delivery O2 Flow Rate FiO2 12/11/20 07:00 97.2 89 20 125/71 (89) 96 Room Air 97.2 12/11/20 03:00 2.0 I & 0 Intake and Output 12/11/20 07:00 Intake Total 640 ml Output Total 460 ml Balance 180 ml Intake Oral 440 ml IV Total 200 ml Output Urine Total 400 ml Drainage Total 60 ml PHYSICAL EXAM Physical Exam General: Alert, Oriented X3, NAD HEENT: PERRLA, EOMI, OM moist Neck Supple Lungs: Clear to auscultation, Non labored Cardiovascular: S1, S2, No rub Abdomen: soft. Extremities: No clubbing, No cyanosis, No edema Skin: No rashes, No significant lesion Neuro: Normal speech, Normal tone, Sensation intact Psych/Mental Status: Mental status NL, Mood NL ling + , No CVA or SP tenderness DIAGNOSIS/ASSESSMENT Assessment & Plan SHANE - Suspect ATN ; cannot r/o AIN. Use of significant amount of NSAID's recently; Recd IV contrast , Hypotensive (Losartan not dced) , Oligoanuric per patient(UOP not recorded in the chart) Worsening renal function since prior to surgery ; No UTI on UA at presentation . Baseline Creat 1.0 at presentation (1.3 in 2019 x1) CT scan at presentation with distended bladder, Worsening renal function -? Creatinine increase appears to have slowed down ? Plateau, if no improvement by tomorrow will need dialysis and Temp HDC Strict I/O, Losartan held , avoid Nephrotoxins Acute cholecystitis s/p Laparoscopic cholecystectomy with intraoperative cholangiogram on 12/08 ; Dx Acute gangrenous cholecystitis with perforation HypoNatremia - Monitor DM2 with hyperglycemia POA Transaminitis HTN- episodes of Low BP since surgery- as low as 88 systolic , still on losartan, will dc Cardiac arrhythmia History of right breast cancer COMMENT/RELEVANT DATA Meds Current Medications Medications (Trade) Dose Ordered Sig/Kaye Start Time Stop Time Status Last Admin Dose Admin Acetaminophen (Tylenol) 650 mg PRN Q6HRS PRN 12/07/20 06:30 12/11/20 04:16 650 MG Acetaminophen/ Butalbital/ Caffeine (Fioricet) 1 tab PRN TID PRN 12/07/20 06:45 12/10/20 23:58 1 TAB Acetaminophen/ Hydrocodone Bitart (Lortab 5/325) 2 tab PRN Q4HRS PRN 12/08/20 10:45 Al Hydroxide/Mg Hydroxide (Mylanta Plus Xs) 30 ml PRN Q3HRS PRN 12/07/20 06:30 Albuterol/ Ipratropium (Duoneb) 3 ml 1X ONCE 12/11/20 04:00 12/11/20 04:01 DC 12/11/20 04:00 3 ML Bupivacaine HCl (Sensorcaine Mpf 0.5%) 30 ml STK-MED ONCE 12/08/20 07:09 12/08/20 07:09 DC 12/08/20 08:23 10 ML Calcium Carbonate/ Glycine (Tums) 500 mg PRN Q3HRS PRN 12/07/20 06:30 12/10/20 22:01 500 MG Cellulose (Surgicel Hemostat 4x8) 1 each STK-MED ONCE 12/08/20 07:09 12/08/20 07:09 DC 12/08/20 08:23 1 EACH Dexamethasone Sodium Phosphate (Decadron) 4 mg STK-MED ONCE 12/08/20 07:19 12/08/20 07:19 DC Dextrose (Dextrose 50%-Water Syringe) 12.5 gm PRN Q15MIN PRN 12/07/20 06:30 Diltiazem HCl (Cardizem 24hr Cd) 240 mg BID 12/07/20 09:00 12/11/20 02:31 240 MG Fentanyl Citrate (Fentanyl 2ml Vial) 100 mcg STK-MED ONCE 12/08/20 10:12 12/08/20 10:13 DC Glycopyrrolate (Robinul) 1 mg STK-MED ONCE 12/08/20 09:30 12/08/20 09:30 DC Heparin Sodium (Porcine) (Heparin Sodium) 5,000 unit Q8HRS 12/07/20 14:00 12/10/20 22:07 5,000 UNIT Hydralazine HCl (Apresoline Inj) 10 mg PRN Q4HRS PRN 12/07/20 06:30 Hydromorphone HCl (Dilaudid) 0.5 mg PRN Q10MIN PRN 12/08/20 07:30 12/08/20 20:00 DC Info (CONTRAST GIVEN -- Rx MONITORING) 1 each PRN DAILY PRN 12/06/20 21:15 12/08/20 21:14 DC Insulin Glargine (Lantus Syringe) 15 unit QHS 12/07/20 21:00 12/10/20 22:22 15 UNIT Insulin Human Lispro (HumaLOG VIAL for OP,RR ONLY) 0-10 units PRN Q1HR PRN 12/08/20 09:00 12/09/20 08:59 DC 12/08/20 09:55 6 UNIT Insulin Human Lispro (HumaLOG) 0-9 UNITS TIDWMEALS 12/07/20 08:00 12/10/20 12:39 4 UNITS Iohexol (Omnipaque 300 Mg/ml) 50 ml STK-MED ONCE 12/08/20 07:08 12/08/20 07:09 DC 12/08/20 08:23 10 ML Labetalol HCl (Normodyne Iv Push) 20 mg PRN Q4HRS PRN 12/07/20 06:30 Lactobacillus Rhamnosus (Culturelle) 1 cap BID 12/09/20 21:00 12/10/20 22:01 1 CAP Levofloxacin/ Dextrose 150 ml @ 100 mls/hr 1X ONCE 12/06/20 21:00 12/06/20 22:29 DC 12/06/20 22:24 100 MLS/HR Lidocaine HCl (Lidocaine Pf 2% Vial) 5 ml STK-MED ONCE 12/08/20 07:19 12/08/20 07:19 DC Losartan Potassium (Cozaar) 50 mg DAILY 12/07/20 09:00 12/09/20 12:59 DC 12/09/20 10:04 50 MG Magnesium Hydroxide (Milk Of Magnesia) 2,400 mg PRN Q12HR PRN 12/07/20 06:30 12/08/20 17:09 2,400 MG Morphine Sulfate (Morphine Sulfate) 1 mg PRN Q10MIN PRN 12/08/20 07:30 12/08/20 20:00 DC Neostigmine [place] (Neostigmine Methylsulfate) 5 mg STK-MED ONCE 12/08/20 09:30 12/08/20 09:30 DC Non-Formulary Medication (Alendronate Sodium (Fosamax)) 70 mg WEEKLY 12/07/20 09:00 UNV Ondansetron HCl (Zofran) 4 mg STK-MED ONCE 12/08/20 07:19 12/08/20 07:19 DC Phenylephrine HCl (PHENYLEPHRINE in 0.9% NACL PF) 1 mg STK-MED ONCE 12/08/20 08:34 12/08/20 08:34 DC Piperacillin Sod/ Tazobactam Sod (Zosyn Per Pharmacy) 1 each PRN DAILY PRN 12/07/20 07:00 Piperacillin Sod/ Tazobactam Sod 3.375 gm/Sodium Chloride 50 ml @ 100 mls/hr Q6HRS 12/07/20 07:30 12/11/20 06:06 100 MLS/HR Polyethylene Glycol (miraLAX PACKET) 17 gm DAILY 12/09/20 13:00 12/10/20 10:57 17 GM Prochlorperazine Edisylate (Compazine) 5 mg PACU PRN PRN 12/08/20 07:30 12/08/20 20:00 DC Propofol (Diprivan) 200 mg STK-MED ONCE 12/08/20 07:19 12/08/20 07:19 DC Ringer's Solution 1,000 ml @ 30 mls/hr Q24H 12/08/20 07:30 12/08/20 19:29 DC 12/08/20 11:21 30 MLS/HR Sodium Chloride 1,000 ml @ 75 mls/hr [id number] 12/09/20 11:15 12/10/20 17:37 75 MLS/HR Zolpidem Tartrate (Ambien) 5 mg PRN QHS PRN 12/07/20 06:30 12/10/20 22:01 5 MG Lab Laboratory Tests Test 12/10/20 12:00 12/10/20 16:56 12/10/20 20:00 12/11/20 06:55 Glucose (Fingerstick) 152 mg/dL (70-99) 68 mg/dL (70-99) 101 mg/dL (70-99) White Blood Count 12.6 x10^3/uL (4.0-11.0) Red Blood Count 3.86 x10^6/uL (3.50-5.40) Hemoglobin 11.5 g/dL (12.0-15.5) Hematocrit 35.5 % (36.0-47.0) Mean Corpuscular Volume 92 fL (79-100) Mean Corpuscular Hemoglobin 30 pg (25-35) Mean Corpuscular Hemoglobin Concent 32 g/dL (31-37) Red Cell Distribution Width 13.4 % (11.5-14.5) Platelet Count 390 x10^3/uL (140-400) Neutrophils (%) (Auto) 77 % (31-73) Lymphocytes (%) (Auto) 13 % (24-48) Monocytes (%) (Auto) 8 % (0-9) Eosinophils (%) (Auto) 1 % (0-3) Basophils (%) (Auto) 0 % (0-3) Neutrophils # (Auto) 9.7 x10^3/uL (1.8-7.7) Lymphocytes # (Auto) 1.7 x10^3/uL (1.0-4.8) Monocytes # (Auto) 1.0 x10^3/uL (0.0-1.1) Eosinophils # (Auto) 0.2 x10^3/uL (0.0-0.7) Basophils # (Auto) 0.0 x10^3/uL (0.0-0.2) Segmented Neutrophils % 73 % (35-66) Lymphocytes % 19 % (24-48) Monocytes % 6 % (0-10) Eosinophils % 2 % (0-5) Platelet Estimate Adequate (ADEQUATE) Sodium Level 132 mmol/L (136-145) Potassium Level 4.0 mmol/L (3.5-5.1) Chloride Level 94 mmol/L (98-107) Carbon Dioxide Level 16 mmol/L (21-32) Anion Gap 22 (6-14) Blood Urea Nitrogen 69 mg/dL (7-20) Creatinine 4.9 mg/dL (0.6-1.0) Estimated GFR (Cockcroft-Gault) 8.8 Glucose Level 112 mg/dL (70-99) Calcium Level 9.4 mg/dL (8.5-10.1) Test 12/11/20 07:26 Glucose (Fingerstick) 119 mg/dL (70-99) Results All relevant outside records, renal labs, imaging studies, telemetry/EKG's were reviewed. Justicifation of Admission Dx: Justifications for Admission: Justification of Admission Dx: Yes ISABELL HEALY MD Dec 11, 2020 09:39
[2020-12-11 10:44] VITALS: BP 136/76
--- NOTE | 2020-12-11 10:59 | PDOC ---
PROGRESS NOTES Date of Service DATE: 12/11/20 TIME: 10:58 Subjective Subjective less abdominal pain; not feeling well though, feels that body is heavy "my body is made of concrete" Objective Objective Vital Signs Date Time Temp Pulse Resp B/P (MAP) Pulse Ox O2 Delivery O2 Flow Rate FiO2 12/11/20 10:44 98.1 90 20 136/76 (96) 95 Room Air 98.1 12/11/20 03:00 2.0 Intake and Output 12/11/20 07:00 Intake Total 640 ml Output Total 460 ml Balance 180 ml Intake Oral 440 ml IV Total 200 ml Output Urine Total 400 ml Drainage Total 60 ml Physical Exam Abdomen: Soft (KESHAWN with serosang fluid) Assessment Assessment S/P lap manan for gangrenous cholecystitis Plan Plan of Care No new recs Comment Review of Relevant I have reviewed the following items wally (where applicable) has been applied. Labs Laboratory Tests Test 12/09/20 11:20 12/09/20 16:40 12/09/20 19:28 12/10/20 06:55 Glucose (Fingerstick) 258 mg/dL (70-99) 115 mg/dL (70-99) 183 mg/dL (70-99) White Blood Count 18.4 x10^3/uL (4.0-11.0) Red Blood Count 3.42 x10^6/uL (3.50-5.40) Hemoglobin 10.5 g/dL (12.0-15.5) Hematocrit 31.3 % (36.0-47.0) Mean Corpuscular Volume 91 fL (79-100) Mean Corpuscular Hemoglobin 31 pg (25-35) Mean Corpuscular Hemoglobin Concent 34 g/dL (31-37) Red Cell Distribution Width 13.1 % (11.5-14.5) Platelet Count 395 x10^3/uL (140-400) Neutrophils (%) (Auto) 86 % (31-73) Lymphocytes (%) (Auto) 6 % (24-48) Monocytes (%) (Auto) 7 % (0-9) Eosinophils (%) (Auto) 1 % (0-3) Basophils (%) (Auto) 0 % (0-3) Neutrophils # (Auto) 15.9 x10^3/uL (1.8-7.7) Lymphocytes # (Auto) 1.2 x10^3/uL (1.0-4.8) Monocytes # (Auto) 1.3 x10^3/uL (0.0-1.1) Eosinophils # (Auto) 0.1 x10^3/uL (0.0-0.7) Basophils # (Auto) 0.0 x10^3/uL (0.0-0.2) Sodium Level 126 mmol/L (136-145) Potassium Level 3.8 mmol/L (3.5-5.1) Chloride Level 91 mmol/L (98-107) Carbon Dioxide Level 17 mmol/L (21-32) Anion Gap 18 (6-14) Blood Urea Nitrogen 64 mg/dL (7-20) Creatinine 4.3 mg/dL (0.6-1.0) Estimated GFR (Cockcroft-Gault) 10.2 Glucose Level 174 mg/dL (70-99) Calcium Level 8.2 mg/dL (8.5-10.1) Total Bilirubin 0.8 mg/dL (0.2-1.0) Direct Bilirubin 0.5 mg/dL (0.0-0.2) Aspartate Amino Transf (AST/SGOT) 40 U/L (15-37) Alanine Aminotransferase (ALT/SGPT) 71 U/L (14-59) Alkaline Phosphatase 135 U/L (46-116) Total Protein 6.6 g/dL (6.4-8.2) Albumin 1.9 g/dL (3.4-5.0) Test 12/10/20 07:19 12/10/20 12:00 12/10/20 16:56 12/10/20 20:00 Glucose (Fingerstick) 191 mg/dL (70-99) 152 mg/dL (70-99) 68 mg/dL (70-99) 101 mg/dL (70-99) Test 12/11/20 06:55 12/11/20 07:26 White Blood Count 12.6 x10^3/uL (4.0-11.0) Red Blood Count 3.86 x10^6/uL (3.50-5.40) Hemoglobin 11.5 g/dL (12.0-15.5) Hematocrit 35.5 % (36.0-47.0) Mean Corpuscular Volume 92 fL (79-100) Mean Corpuscular Hemoglobin 30 pg (25-35) Mean Corpuscular Hemoglobin Concent 32 g/dL (31-37) Red Cell Distribution Width 13.4 % (11.5-14.5) Platelet Count 390 x10^3/uL (140-400) Neutrophils (%) (Auto) 77 % (31-73) Lymphocytes (%) (Auto) 13 % (24-48) Monocytes (%) (Auto) 8 % (0-9) Eosinophils (%) (Auto) 1 % (0-3) Basophils (%) (Auto) 0 % (0-3) Neutrophils # (Auto) 9.7 x10^3/uL (1.8-7.7) Lymphocytes # (Auto) 1.7 x10^3/uL (1.0-4.8) Monocytes # (Auto) 1.0 x10^3/uL (0.0-1.1) Eosinophils # (Auto) 0.2 x10^3/uL (0.0-0.7) Basophils # (Auto) 0.0 x10^3/uL (0.0-0.2) Segmented Neutrophils % 73 % (35-66) Lymphocytes % 19 % (24-48) Monocytes % 6 % (0-10) Eosinophils % 2 % (0-5) Platelet Estimate Adequate (ADEQUATE) Sodium Level 132 mmol/L (136-145) Potassium Level 4.0 mmol/L (3.5-5.1) Chloride Level 94 mmol/L (98-107) Carbon Dioxide Level 16 mmol/L (21-32) Anion Gap 22 (6-14) Blood Urea Nitrogen 69 mg/dL (7-20) Creatinine 4.9 mg/dL (0.6-1.0) Estimated GFR (Cockcroft-Gault) 8.8 Glucose Level 112 mg/dL (70-99) Calcium Level 9.4 mg/dL (8.5-10.1) Glucose (Fingerstick) 119 mg/dL (70-99) Laboratory Tests Test 12/10/20 12:00 12/10/20 16:56 12/10/20 20:00 12/11/20 06:55 Glucose (Fingerstick) 152 mg/dL (70-99) 68 mg/dL (70-99) 101 mg/dL (70-99) White Blood Count 12.6 x10^3/uL (4.0-11.0) Red Blood Count 3.86 x10^6/uL (3.50-5.40) Hemoglobin 11.5 g/dL (12.0-15.5) Hematocrit 35.5 % (36.0-47.0) Mean Corpuscular Volume 92 fL (79-100) Mean Corpuscular Hemoglobin 30 pg (25-35) Mean Corpuscular Hemoglobin Concent 32 g/dL (31-37) Red Cell Distribution Width 13.4 % (11.5-14.5) Platelet Count 390 x10^3/uL (140-400) Neutrophils (%) (Auto) 77 % (31-73) Lymphocytes (%) (Auto) 13 % (24-48) Monocytes (%) (Auto) 8 % (0-9) Eosinophils (%) (Auto) 1 % (0-3) Basophils (%) (Auto) 0 % (0-3) Neutrophils # (Auto) 9.7 x10^3/uL (1.8-7.7) Lymphocytes # (Auto) 1.7 x10^3/uL (1.0-4.8) Monocytes # (Auto) 1.0 x10^3/uL (0.0-1.1) Eosinophils # (Auto) 0.2 x10^3/uL (0.0-0.7) Basophils # (Auto) 0.0 x10^3/uL (0.0-0.2) Segmented Neutrophils % 73 % (35-66) Lymphocytes % 19 % (24-48) Monocytes % 6 % (0-10) Eosinophils % 2 % (0-5) Platelet Estimate Adequate (ADEQUATE) Sodium Level 132 mmol/L (136-145) Potassium Level 4.0 mmol/L (3.5-5.1) Chloride Level 94 mmol/L (98-107) Carbon Dioxide Level 16 mmol/L (21-32) Anion Gap 22 (6-14) Blood Urea Nitrogen 69 mg/dL (7-20) Creatinine 4.9 mg/dL (0.6-1.0) Estimated GFR (Cockcroft-Gault) 8.8 Glucose Level 112 mg/dL (70-99) Calcium Level 9.4 mg/dL (8.5-10.1) Test 12/11/20 07:26 Glucose (Fingerstick) 119 mg/dL (70-99) Microbiology 12/06/20 Blood Culture - Preliminary, Resulted NO GROWTH AFTER 4 DAYS Medications Current Medications Morphine Sulfate (Morphine Sulfate) 4 mg 1X ONCE IVP Last administered on 12/06/20at 20:29; Start 12/06/20 at 20:30; Stop 12/06/20 at 20:31; Status DC Ondansetron HCl (Zofran) 4 mg 1X ONCE IVP Last administered on 12/06/20at 20:29; Start 12/06/20 at 20:30; Stop 12/06/20 at 20:31; Status DC Levofloxacin/ Dextrose 150 ml @ 100 mls/hr 1X ONCE IV Last administered on 12/06/20at 22:24; Start 12/06/20 at 21:00; Stop 12/06/20 at 22:29; Status DC Iohexol (Omnipaque 300 Mg/ml) 60 ml 1X ONCE IV Last administered on 12/06/20at 21:27; Start 12/06/20 at 21:00; Stop 12/06/20 at 21:01; Status DC Info (CONTRAST GIVEN -- Rx MONITORING) 1 each PRN DAILY PRN MC SEE COMMENTS; Start 12/06/20 at 21:15; Stop 12/08/20 at 21:14; Status DC Piperacillin Sod/ Tazobactam Sod 3.375 gm/Sodium Chloride 50 ml @ 100 mls/hr 1X ONCE IV Last administered on 12/07/20at 00:49; Start 12/06/20 at 22:00; Stop 12/06/20 at 22:29; Status DC Morphine Sulfate (Morphine Sulfate) 4 mg PRN Q2HR PRN IVP PAIN Last administered on 12/07/20at 13:35; Start 12/06/20 at 22:15; Stop 12/07/20 at 22:14; Status DC Sodium Chloride 1,000 ml @ 100 mls/hr Q10H IV Last administered on 12/07/20at 23:45; Start 12/06/20 at 22:15; Stop 12/07/20 at 22:14; Status DC Ondansetron HCl (Zofran) 4 mg PRN Q6HRS PRN IVP NAUSEA/VOMITING; Start 12/07/20 at 06:30 Al Hydroxide/Mg Hydroxide (Mylanta Plus Xs) 30 ml PRN Q3HRS PRN PO HEARTBURN / GAS; Start 12/07/20 at 06:30 Calcium Carbonate/ Glycine (Tums) 500 mg PRN Q3HRS PRN PO UPSET STOMACH Last administered on 12/10/20at 22:01; Start 12/07/20 at 06:30 Zolpidem Tartrate (Ambien) 5 mg PRN QHS PRN PO INSOMNIA, MAY REPEAT IN 1HR Last administered on 12/10/20at 22:01; Start 12/07/20 at 06:30 Acetaminophen (Tylenol) 650 mg PRN Q6HRS PRN PO Headaches, Temp > 101.5F Last administered on 12/11/20at 04:16; Start 12/07/20 at 06:30 Magnesium Hydroxide (Milk Of Magnesia) 2,400 mg PRN Q12HR PRN PO CONSTIPATION Last administered on 12/08/20at 17:09; Start 12/07/20 at 06:30 Heparin Sodium (Porcine) (Heparin Sodium) 5,000 unit Q8HRS SQ Last administered on 12/10/20at 22:07; Start 12/07/20 at 14:00 Losartan Potassium (Cozaar) 50 mg DAILY PO Last administered on 12/09/20at 10:04; Start 12/07/20 at 09:00; Stop 12/09/20 at 12:59; Status DC Non-Formulary Medication (Alendronate Sodium (Fosamax)) 70 mg WEEKLY PO ; Start 12/07/20 at 09:00; Status UNV Acetaminophen/ Butalbital/ Caffeine (Fioricet) 1 tab PRN TID PRN PO MIGRAINE HEADACHE Last administered on 12/10/20at 23:58; Start 12/07/20 at 06:45 Diltiazem HCl (Cardizem 24hr Cd) 240 mg BID PO Last administered on 12/11/20at 02:31; Start 12/07/20 at 09:00 Hydralazine HCl (Apresoline Inj) 10 mg PRN Q4HRS PRN IVP FOR SBP>180; Start 12/07/20 at 06:30 Labetalol HCl (Normodyne Iv Push) 20 mg PRN Q4HRS PRN IVP HYPERTENSION; Start 12/07/20 at 06:30 Insulin Glargine (Lantus Syringe) 15 unit QHS SQ Last administered on 12/10/20at 22:22; Start 12/07/20 at 21:00 Insulin Human Lispro (HumaLOG) 5 units TIDWMEALS SQ Last administered on 12/10/20at 12:40; Start 12/07/20 at 08:00 Dextrose (Dextrose 50%-Water Syringe) 12.5 gm PRN Q15MIN PRN IV SEE COMMENTS; Start 12/07/20 at 06:30 Insulin Human Lispro (HumaLOG) 0-9 UNITS TIDWMEALS SQ Last administered on 12/10/20at 12:39; Start 12/07/20 at 08:00 Piperacillin Sod/ Tazobactam Sod (Zosyn Per Pharmacy) 1 each PRN DAILY PRN MC SEE COMMENTS; Start 12/07/20 at 07:00 Piperacillin Sod/ Tazobactam Sod 3.375 gm/Sodium Chloride 50 ml @ 100 mls/hr Q6HRS IV Last administered on 12/11/20at 06:06; Start 12/07/20 at 07:30 Morphine Sulfate (Morphine Sulfate) 5 mg PRN Q4HRS PRN IV SEVERE PAIN 7-10 Last administered on 12/07/20at 22:55; Start 12/07/20 at 22:30 Fentanyl Citrate (Fentanyl 2ml Vial) 50 mcg PRN Q2HR PRN IVP PAIN MODERATE Last administered on 12/08/20at 10:25; Start 12/07/20 at 22:30 Iohexol (Omnipaque 300 Mg/ml) 50 ml STK-MED ONCE .ROUTE Last administered on 12/08/20at 08:23; Start 12/08/20 at 07:08; Stop 12/08/20 at 07:09; Status DC Cellulose (Surgicel Hemostat 4x8) 1 each STK-MED ONCE .ROUTE Last administered on 12/08/20at 08:23; Start 12/08/20 at 07:09; Stop 12/08/20 at 07:09; Status DC Bupivacaine HCl (Sensorcaine Mpf 0.5%) 30 ml STK-MED ONCE .ROUTE Last administered on 10/17/21at 08:23; Start 12/08/20 at 07:09; Stop 12/08/20 at 07:09; Status DC Propofol (Diprivan) 200 mg STK-MED ONCE IV ; Start 12/08/20 at 07:19; Stop 12/08/20 at 07:19; Status DC Lidocaine HCl (Lidocaine Pf 2% Vial) 5 ml STK-MED ONCE .ROUTE ; Start 12/08/20 at 07:19; Stop 12/08/20 at 07:19; Status DC Dexamethasone Sodium Phosphate (Decadron) 4 mg STK-MED ONCE .ROUTE ; Start 12/08/20 at 07:19; Stop 12/08/20 at 07:19; Status DC Ondansetron HCl (Zofran) 4 mg STK-MED ONCE .ROUTE ; Start 12/08/20 at 07:19; Stop 12/08/20 at 07:19; Status DC Glycopyrrolate (Robinul) 1 mg STK-MED ONCE .ROUTE ; Start 12/08/20 at 07:19; Stop 12/08/20 at 07:20; Status DC Neostigmine [place] (Neostigmine Methylsulfate) 5 mg STK-MED ONCE .ROUTE ; Start 12/08/20 at 07:19; Stop 12/08/20 at 07:20; Status DC Fentanyl Citrate (Fentanyl 2ml Vial) 25 mcg PRN Q5MIN PRN IVP MILD PAIN 1-3; Start 12/08/20 at 07:30; Stop 12/08/20 at 20:00; Status DC Fentanyl Citrate (Fentanyl 2ml Vial) 50 mcg PRN Q5MIN PRN IVP MODERATE PAIN 4- 6; Start 12/08/20 at 07:30; Stop 12/08/20 at 20:00; Status DC Morphine Sulfate (Morphine Sulfate) 1 mg PRN Q10MIN PRN IVP SEVERE PAIN 7-10; Start 12/08/20 at 07:30; Stop 12/08/20 at 20:00; Status DC Ringer's Solution 1,000 ml @ 30 mls/hr Q24H IV Last administered on 12/08/20at 11:21; Start 12/08/20 at 07:30; Stop 12/08/20 at 19:29; Status DC Hydromorphone HCl (Dilaudid) 0.5 mg PRN Q10MIN PRN IVP SEVERE PAIN 7-10, 2nd CHOICE; Start 12/08/20 at 07:30; Stop 12/08/20 at 20:00; Status DC Prochlorperazine Edisylate (Compazine) 5 mg PACU PRN PRN IVP NAUSEA, MRX1; Start 12/08/20 at 07:30; Stop 12/08/20 at 20:00; Status DC Fentanyl Citrate (Fentanyl 2ml Vial) 100 mcg STK-MED ONCE .ROUTE ; Start 12/08/20 at 07:20; Stop 12/08/20 at 07:21; Status DC Phenylephrine HCl (PHENYLEPHRINE in 0.9% NACL PF) 1 mg STK-MED ONCE IV ; Start 12/08/20 at 08:34; Stop 12/08/20 at 08:34; Status DC Insulin Human Lispro (HumaLOG VIAL for OP,RR ONLY) 0-10 units PRN Q1HR PRN SQ PER PROTOCOL Last administered on 12/08/20at 09:55; Start 12/08/20 at 09:00; Stop 12/09/20 at 08:59; Status DC Neostigmine [place] (Neostigmine Methylsulfate) 5 mg STK-MED ONCE .ROUTE ; Start 12/08/20 at 09:30; Stop 12/08/20 at 09:30; Status DC Glycopyrrolate (Robinul) 1 mg STK-MED ONCE .ROUTE ; Start 12/08/20 at 09:30; Stop 12/08/20 at 09:30; Status DC Acetaminophen/ Hydrocodone Bitart (Lortab 5/325) 1 tab PRN Q4HRS PRN PO MODERATE PAIN Last administered on 12/09/20at 12:27; Start 12/08/20 at 10:00 Fentanyl Citrate (Fentanyl 2ml Vial) 100 mcg STK-MED ONCE .ROUTE ; Start 12/08/20 at 10:12; Stop 12/08/20 at 10:13; Status DC Acetaminophen/ Hydrocodone Bitart (Lortab 5/325) 2 tab PRN Q4HRS PRN PO SEVERE PAIN; Start 12/08/20 at 10:45 Sodium Chloride 1,000 ml @ 75 mls/hr [id number] IV Last administered on 12/10/20at 17:37; Start 12/09/20 at 11:15 Polyethylene Glycol (miraLAX PACKET) 17 gm DAILY PO Last administered on 12/10/20at 10:57; Start 12/09/20 at 13:00 Lactobacillus Rhamnosus (Culturelle) 1 cap BID PO Last administered on 12/10/20at 22:01; Start 12/09/20 at 21:00 Albuterol/ Ipratropium (Duoneb) 3 ml 1X ONCE NEB Last administered on 12/11/20at 04:00; Start 12/11/20 at 04:00; Stop 12/11/20 at 04:01; Status DC Active Scripts Active Reported Famotidine 20 Mg Tablet 20 Mg PO HS Atorvastatin Calcium 10 Mg Tablet 1 Tab PO DAILY Vitamin C (Ascorbic Acid) 500 Mg Capsule.er 1 Cap PO DAILY 30 Days Januvia (Sitagliptin Phosphate) 100 Mg Tablet 1 Tab PO DAILY Hyaluronic Acid 40 Mg Capsule (Hyalur Ac/Chond Sul/Colg Ii/Aa) 1 Each Capsule 1 Each PO DAILY Omeprazole 20 Mg Tablet.dr 1 Tab PO DAILY Ondansetron Odt (Ondansetron) 4 Mg Tab.rapdis 1 Tab PO PRN Q6-8HRS [lipitor] [januvia] Fish Oil 1,000 Mg Capsule ([place]-3 Fatty Acids/Fish Oil) 1 Each Capsule 1 Each PO BID Ambien (Zolpidem Tartrate) 5 Mg Tablet 5 Mg PO HS PRN Fosamax (Alendronate Sodium) 70 Mg Tablet 70 Mg PO WEEKLY Losartan Potassium 50 Mg Tablet 50 Mg PO DAILY Multi Vitamin Daily (Multivitamin) 1 Each Tablet 1 Each PO DAILY Fiorinal 50-325-40 Mg Capsule (Butalbital/Aspirin/Caffeine) 1 Each Capsule 1 Each PO PRN TID PRN Metformin Hcl 1,000 Mg Tablet 1,000 Mg PO BIDWMEALS Zyrtec (Cetirizine Hcl) 10 Mg Capsule 10 Mg PO DAILY Diltiazem Er (Diltiazem Hcl) 240 Mg Cap.er.deg 240 Mg PO BID Vitals/I & O Vital Sign - Last 24 Hours 12/10/20 12/10/20 12/10/20 12/10/20 11:00 15:00 19:00 20:00 Temp 98.5 97.4 98.4 98.5 97.4 98.4 Pulse 76 72 74 Resp 20 20 18 B/P (MAP) 117/63 (81) 118/71 (87) 144/70 (94) Pulse Ox 95 95 95 O2 Delivery Room Air Room Air Room Air Room Air O2 Flow Rate 2.0 12/10/20 12/11/20 12/11/20 12/11/20 23:00 02:31 03:00 05:57 Temp 98.1 98.1 98.1 98.1 Pulse 78 84 84 Resp 17 20 B/P (MAP) 152/75 (100) 138/74 130/74 (92) Pulse Ox 96 96 97 O2 Delivery Room Air Room Air Room Air O2 Flow Rate 2.0 2.0 12/11/20 12/11/20 07:00 10:44 Temp 97.2 98.1 97.2 98.1 Pulse 89 90 Resp 20 20 B/P (MAP) 125/71 (89) 136/76 (96) Pulse Ox 96 95 O2 Delivery Room Air Room Air Intake and Output 12/10/20 12/10/20 12/11/20 15:00 23:00 07:00 Intake Total 370 ml 170 ml 100 ml Output Total 460 ml Balance 370 ml 170 ml -360 ml Justifications for Admission General Conditions Other justification for admit: Acute cholecystitis Other Justification CALVIN LUIS MD Dec 11, 2020 10:59
--- NOTE | 2020-12-11 11:07 | NUR ---
SS following up with discharge planning. SS reviewed pt chart and discussed with pt RN. Pt is currently on room air. COVID19 negative. Pt had lap manan on 12/08/2020. Pt on IV Zosyn. KESHAWN drain in place. PT/OT ordered. SS will continue to follow for discharge planning.
[2020-12-11] MEDS: LACTOBACILLUS RHAMNOSUS GG 1 CAPSULE. PO SCH ×2 (13:02→21:23)
[2020-12-11] MEDS: SODIUM BICARBONATE VIAL 150 MEQ in IV DEXTROSE 5% 1,000 ML IV SCH ×2 (14:12→15:30)
[2020-12-11] MEDS: HYDROcodone/APAP 5/325MG 1 TAB TABLET PO PRN (14:48)
[2020-12-11 14:52] VITALS: BP 130/72
[2020-12-11] MEDS: PIPERACILLIN/TAZOBACTAM 2.25 GM in IV NORMAL SALINE 50ML 50 ML IV SCH (18:16)
[2020-12-11 19:00] VITALS: BP 126/64
[2020-12-11] MEDS: ZOLPIDEM 5 MG TABLET. PO PRN (21:24)
[2020-12-11] MEDS: INSULIN GLARGINE SYRINGE. SQ SCH (21:31)
[2020-12-11] MEDS: BUTALB/APAP/CAFEIN 50/325/40MG TABLET. PO PRN (21:35)
[2020-12-11 22:51] VITALS: BP 130/68
[2020-12-12] MEDS: PIPERACILLIN/TAZOBACTAM 2.25 GM in IV NORMAL SALINE 50ML 50 ML IV SCH ×4 (00:03→20:48)
[2020-12-12 03:00] VITALS: BP 135/62
[2020-12-12 04:36] LABS: BASO % 0 % (0-3); EOS # 0.2 x10^3/uL (0.0-0.7); EOS % 2 % (0-3); HEMATOCRIT 32.6 % (36.0-47.0); HEMOGLOBIN 10.9 g/dL (12.0-15.5); LYMPH # 1.2 x10^3/uL (1.0-4.8); LYMPH % 12 % (24-48); MEAN CORPUSCULAR HEMOGLOBIN 31 pg (25-35); MEAN CORPUSCULAR HGB CONC 33 g/dL (31-37); MEAN CORPUSCULAR VOLUME 92 fL (79-100); MONO # 0.8 x10^3/uL (0.0-1.1); MONO % 8 % (0-9); NEUT # 7.7 x10^3/uL (1.8-7.7); NEUT % 78 % (31-73); PLATELET COUNT 379 x10^3/uL (140-400); RED BLOOD COUNT 3.55 x10^6/uL (3.50-5.40); RED CELL DISTRIBUTION WIDTH 13.3 % (11.5-14.5); WHITE BLOOD COUNT 9.9 x10^3/uL (4.0-11.0)
[2020-12-12] MEDS: SODIUM BICARBONATE VIAL 150 MEQ in IV DEXTROSE 5% 1,000 ML IV SCH (04:37)
[2020-12-12 04:47] LABS: CALCIUM 8.5 mg/dL (8.5-10.1); CREATININE 4.6 mg/dL (0.6-1.0); GFR 9.4; POTASSIUM 3.4 mmol/L (3.5-5.1)
[2020-12-12] MEDS: HEPARIN for SUB-Q USE 5,000 UNIT/ML VIAL. SQ SCH ×3 (06:04→20:47)
[2020-12-12 07:00] VITALS: BP 143/76
[2020-12-12] MEDS: INSULIN LISPRO 300 UNITS/3 ML VIAL. SQ SCH ×6 (08:00→17:49)
[2020-12-12] MEDS: POLYETHYLENE GLYCOL 3350 17 GM PACKET. PO SCH (09:00)
[2020-12-12] MEDS: ACETAMINOPHEN 325 MG TABLET. PO PRN (09:06)
[2020-12-12] MEDS: LACTOBACILLUS RHAMNOSUS GG 1 CAPSULE. PO SCH ×2 (09:07→20:18)
--- NOTE | 2020-12-12 10:07 | PDOC ---
DATE OF SERVICE DATE: 12/12/20 TIME: 10:05 SUBJECTIVE ROS on RA, Denies N/V . No SOB. Had breakfast today No acute voiced by nursing OBJECTIVE Vital Signs Vital Signs Date Time Temp Pulse Resp B/P (MAP) Pulse Ox O2 Delivery O2 Flow Rate FiO2 12/12/20 09:07 74 143/76 12/12/20 07:00 98.5 18 95 Room Air 98.5 I & 0 Intake and Output0 12/12/20 07:00 Intake Total 2690 ml Output Total 1251 ml Balance 1439 ml Intake Oral 540 ml IV Total 2150 ml Output Urine Total 1000 ml Drainage Total 251 ml # Bowel Movements 2 PHYSICAL EXAM Physical Exam General: Alert, Oriented X3, NAD HEENT: PERRLA, EOMI, OM moist Neck Supple Lungs: Clear to auscultation, Non labored Cardiovascular: S1, S2, No rub Abdomen: soft. Extremities: No clubbing, No cyanosis, No edema Skin: No rashes, No significant lesion Neuro: Normal speech, Normal tone, Sensation intact Psych/Mental Status: Mental status NL, Mood NL ling + , No CVA or SP tenderness DIAGNOSIS/ASSESSMENT Assessment & Plan SHANE - Suspect ATN ; cannot r/o AIN. Use of significant amount of NSAID's recently; Recd IV contrast , Hypotensive (Losartan not dced) , Oligoanuric per patient(UOP not recorded in the chart) ; Creatinine Plateau today, Improved UOP , Strict I/O,Monitor Losartan held Worsening renal function since prior to surgery ; No UTI on UA at presentation . Baseline Creat 1.0 at presentation (1.3 in 2019 x1) , CT scan at presentation with distended bladder, Acute cholecystitis s/p Laparoscopic cholecystectomy with intraoperative cholangiogram on 12/08 ; Dx Acute gangrenous cholecystitis with perforation HypoNatremia - Monitor DM2 with hyperglycemia POA Transaminitis HTN- episodes of Low BP since surgery- as low as 88 systolic , still on losartan, will dc Cardiac arrhythmia History of right breast cancer COMMENT/RELEVANT DATA Meds Current Medications Medications (Trade) Dose Ordered Sig/Kaye Start Time Stop Time Status Last Admin Dose Admin Acetaminophen (Tylenol) 650 mg PRN Q6HRS PRN 12/07/20 06:30 12/12/20 09:06 650 MG Acetaminophen/ Butalbital/ Caffeine (Fioricet) 1 tab PRN TID PRN 12/07/20 06:45 12/11/20 21:35 1 TAB Acetaminophen/ Hydrocodone Bitart (Lortab 5/325) 2 tab PRN Q4HRS PRN 12/08/20 10:45 12/11/20 14:48 2 TAB Al Hydroxide/Mg Hydroxide (Mylanta Plus Xs) 30 ml PRN Q3HRS PRN 12/07/20 06:30 12/12/20 04:23 DC Albuterol/ Ipratropium (Duoneb) 3 ml 1X ONCE 12/11/20 04:00 12/11/20 04:01 DC 12/11/20 04:00 3 ML Bupivacaine HCl (Sensorcaine Mpf 0.5%) 30 ml STK-MED ONCE 12/08/20 07:09 12/08/20 07:09 DC 12/08/20 08:23 10 ML Calcium Carbonate/ Glycine (Tums) 500 mg PRN Q3HRS PRN 12/07/20 06:30 12/10/20 22:01 500 MG Cellulose (Surgicel Hemostat 4x8) 1 each STK-MED ONCE 12/08/20 07:09 12/08/20 07:09 DC 12/08/20 08:23 1 EACH Dexamethasone Sodium Phosphate (Decadron) 4 mg STK-MED ONCE 12/08/20 07:19 12/08/20 07:19 DC Dextrose (Dextrose 50%-Water Syringe) 12.5 gm PRN Q15MIN PRN 12/07/20 06:30 Diltiazem HCl (Cardizem 24hr Cd) 240 mg BID 12/07/20 09:00 12/12/20 09:07 240 MG Fentanyl Citrate (Fentanyl 2ml Vial) 100 mcg STK-MED ONCE 12/08/20 10:12 12/08/20 10:13 DC Glycopyrrolate (Robinul) 1 mg STK-MED ONCE 12/08/20 09:30 12/08/20 09:30 DC Heparin Sodium (Porcine) (Heparin Sodium) 5,000 unit Q8HRS 12/07/20 14:00 12/12/20 06:04 5,000 UNIT Hydralazine HCl (Apresoline Inj) 10 mg PRN Q4HRS PRN 12/07/20 06:30 Hydromorphone HCl (Dilaudid) 0.5 mg PRN Q10MIN PRN 12/08/20 07:30 12/08/20 20:00 DC Info (CONTRAST GIVEN -- Rx MONITORING) 1 each PRN DAILY PRN 12/06/20 21:15 12/08/20 21:14 DC Insulin Glargine (Lantus Syringe) 15 unit QHS 12/07/20 21:00 12/11/20 21:31 15 UNIT Insulin Human Lispro (HumaLOG VIAL for OP,RR ONLY) 0-10 units PRN Q1HR PRN 12/08/20 09:00 12/09/20 08:59 DC 12/08/20 09:55 6 UNIT Insulin Human Lispro (HumaLOG) 0-9 UNITS TIDWMEALS 12/07/20 08:00 12/11/20 18:20 3 UNITS Iohexol (Omnipaque 300 Mg/ml) 50 ml STK-MED ONCE 12/08/20 07:08 12/08/20 07:09 DC 12/08/20 08:23 10 ML Labetalol HCl (Normodyne Iv Push) 20 mg PRN Q4HRS PRN 12/07/20 06:30 Lactobacillus Rhamnosus (Culturelle) 1 cap BID 12/09/20 21:00 12/12/20 09:07 1 CAP Levofloxacin/ Dextrose 150 ml @ 100 mls/hr 1X ONCE 12/06/20 21:00 12/06/20 22:29 DC 12/06/20 22:24 100 MLS/HR Lidocaine HCl (Lidocaine Pf 2% Vial) 5 ml STK-MED ONCE 12/08/20 07:19 12/08/20 07:19 DC Losartan Potassium (Cozaar) 50 mg DAILY 12/07/20 09:00 12/09/20 12:59 DC 12/09/20 10:04 50 MG Magnesium Hydroxide (Milk Of Magnesia) 2,400 mg PRN Q12HR PRN 12/07/20 06:30 12/12/20 04:23 DC 12/08/20 17:09 2,400 MG Morphine Sulfate (Morphine Sulfate) 1 mg PRN Q10MIN PRN 12/08/20 07:30 12/08/20 20:00 DC Neostigmine [place] (Neostigmine Methylsulfate) 5 mg STK-MED ONCE 12/08/20 09:30 12/08/20 09:30 DC Non-Formulary Medication (Alendronate Sodium (Fosamax)) 70 mg WEEKLY 12/07/20 09:00 UNV Ondansetron HCl (Zofran) 4 mg STK-MED ONCE 12/08/20 07:19 12/08/20 07:19 DC Phenylephrine HCl (PHENYLEPHRINE in 0.9% NACL PF) 1 mg STK-MED ONCE 12/08/20 08:34 12/08/20 08:34 DC Piperacillin Sod/ Tazobactam Sod (Zosyn Per Pharmacy) 1 each PRN DAILY PRN 12/07/20 07:00 Piperacillin Sod/ Tazobactam Sod 2.25 gm/Sodium Chloride 50 ml @ 100 mls/hr Q6HRS 12/11/20 18:00 12/12/20 06:01 100 MLS/HR Piperacillin Sod/ Tazobactam Sod 3.375 gm/Sodium Chloride 50 ml @ 100 mls/hr Q6HRS 12/07/20 07:30 12/11/20 15:43 DC 12/11/20 13:03 100 MLS/HR Polyethylene Glycol (miraLAX PACKET) 17 gm DAILY 12/09/20 13:00 12/10/20 10:57 17 GM Prochlorperazine Edisylate (Compazine) 5 mg PACU PRN PRN 12/08/20 07:30 12/08/20 20:00 DC Propofol (Diprivan) 200 mg STK-MED ONCE 12/08/20 07:19 12/08/20 07:19 DC Ringer's Solution 1,000 ml @ 30 mls/hr Q24H 12/08/20 07:30 12/08/20 19:29 DC 12/08/20 11:21 30 MLS/HR Sodium Bicarbonate 150 meq/Dextrose 1,150 ml @ 60 mls/hr [id number] 12/11/20 13:00 12/12/20 04:37 60 MLS/HR Sodium Chloride 1,000 ml @ 75 mls/hr [id number] 12/09/20 11:15 12/11/20 12:30 DC 12/10/20 17:37 75 MLS/HR Zolpidem Tartrate (Ambien) 5 mg PRN QHS PRN 12/07/20 06:30 12/11/20 21:24 5 MG Lab Laboratory Tests Test 12/11/20 11:29 12/11/20 16:32 12/11/20 19:42 12/12/20 03:35 Glucose (Fingerstick) 128 mg/dL (70-99) 209 mg/dL (70-99) 216 mg/dL (70-99) White Blood Count 9.9 x10^3/uL (4.0-11.0) Red Blood Count 3.55 x10^6/uL (3.50-5.40) Hemoglobin 10.9 g/dL (12.0-15.5) Hematocrit 32.6 % (36.0-47.0) Mean Corpuscular Volume 92 fL (79-100) Mean Corpuscular Hemoglobin 31 pg (25-35) Mean Corpuscular Hemoglobin Concent 33 g/dL (31-37) Red Cell Distribution Width 13.3 % (11.5-14.5) Platelet Count 379 x10^3/uL (140-400) Neutrophils (%) (Auto) 78 % (31-73) Lymphocytes (%) (Auto) 12 % (24-48) Monocytes (%) (Auto) 8 % (0-9) Eosinophils (%) (Auto) 2 % (0-3) Basophils (%) (Auto) 0 % (0-3) Neutrophils # (Auto) 7.7 x10^3/uL (1.8-7.7) Lymphocytes # (Auto) 1.2 x10^3/uL (1.0-4.8) Monocytes # (Auto) 0.8 x10^3/uL (0.0-1.1) Eosinophils # (Auto) 0.2 x10^3/uL (0.0-0.7) Basophils # (Auto) 0.0 x10^3/uL (0.0-0.2) Sodium Level 135 mmol/L (136-145) Potassium Level 3.4 mmol/L (3.5-5.1) Chloride Level 99 mmol/L (98-107) Carbon Dioxide Level 21 mmol/L (21-32) Anion Gap 15 (6-14) Blood Urea Nitrogen 71 mg/dL (7-20) Creatinine 4.6 mg/dL (0.6-1.0) Estimated GFR (Cockcroft-Gault) 9.4 Glucose Level 143 mg/dL (70-99) Calcium Level 8.5 mg/dL (8.5-10.1) Test 12/12/20 07:12 Glucose (Fingerstick) 141 mg/dL (70-99) Results All relevant outside records, renal labs, imaging studies, telemetry/EKG's were reviewed. Justicifation of Admission Dx: Justifications for Admission: Justification of Admission Dx: Yes ISABELL HEALY MD Dec 12, 2020 10:07
[2020-12-12 11:00] VITALS: BP 127/67
--- NOTE | 2020-12-12 12:52 | PDOC ---
[facility] [facility] PROGRESS NOTE Date of Service DOS: DATE: 12/12/20 TIME: 12:50 Chief Complaint Chief Complaint Postop day 3 laparoscopic cholecystectomy Acute kidney injury probably secondary to contrast? (Her baseline creatinine was 1 now her creatinine is 4.6) nephrology following Service Diabetes Hypertension Hyperlipidemia Arrhythmias Transaminase-itis History of breast cancer History of Present Illness History of Present Illness 12/11: Pt was seen, examined, and their chart was reviewed. Pt's creatinine has increased again to 4.9, so will continue to give IV fluids and hold off on dialysis for now since the pt's O2 levels are fine. Discussed with RN and JAXON. 12/10: Pt was seen, examined, and their chart was reviewed. Pt's creatinine bumped up again to 4.3, thus we awaiting to see further results with continued IV Fluids. Discussed with RN and JAXON. 12/09/2020 Patient seen and examined Her creatinine bumped up to 3.4 (I suspect this might be contrast induced?) Discussed with RN Chart reviewed 70-year-old female with past medical history DM2, HTN, right breast cancer, who presents to the ED with complaints of worsening epigastric pain for the past 3 days. She reports sharp pain, 7/10, that is aggravated by deep inspiration. Associated nausea, vomiting, and anorexia. She denies any fever, diarrhea, shortness of breath, or recent injury. In the ED labs showed WBC 42.1, platelets 431, CBG 337, AST 202, ALT 166, alkaline phos 148, BNP 1457, troponin <0.017, lactic acid 1.5, albumin 3.2. She received broad-spectrum antibiotics and IV fluids. CT abdomen/pelvis showed findings favored to represent acute cholecystitis. She received broad-spectrum antibiotics and IV fluids. She has been fully vaccinated against COVID-19. She will be admitted with general surgery consultation. 12/08/2020: Afebrile. Pain increased overnight, increase as needed IV pain medication. Abdominal ultrasound showed acute calculus cholecystitis, without common bile duct dilation. Plan for surgery today. Vitals/I&O Vitals/I&O: Vital Signs Date Time Temp Pulse Resp B/P (MAP) Pulse Ox O2 Delivery O2 Flow Rate FiO2 12/12/20 11:00 98.0 68 18 127/67 (87) 97 Room Air 98.0 I & O 12/11/20 12/11/20 12/12/20 15:00 23:00 07:00 Intake Total 1140 ml 350 ml 1200 ml Output Total 161 ml 1090 ml Balance 979 ml 350 ml 110 ml Physical Exam General: Alert, Cooperative Heart: Regular rate Lungs: Clear Abdomen: Soft (KESHAWN with serosang fluid) Extremities: No clubbing, No cyanosis Skin: No rashes Labs Labs: Laboratory Tests Test 12/11/20 16:32 12/11/20 19:42 12/12/20 03:35 12/12/20 07:12 Glucose (Fingerstick) 209 mg/dL (70-99) 216 mg/dL (70-99) 141 mg/dL (70-99) White Blood Count 9.9 x10^3/uL (4.0-11.0) Red Blood Count 3.55 x10^6/uL (3.50-5.40) Hemoglobin 10.9 g/dL (12.0-15.5) Hematocrit 32.6 % (36.0-47.0) Mean Corpuscular Volume 92 fL (79-100) Mean Corpuscular Hemoglobin 31 pg (25-35) Mean Corpuscular Hemoglobin Concent 33 g/dL (31-37) Red Cell Distribution Width 13.3 % (11.5-14.5) Platelet Count 379 x10^3/uL (140-400) Neutrophils (%) (Auto) 78 % (31-73) Lymphocytes (%) (Auto) 12 % (24-48) Monocytes (%) (Auto) 8 % (0-9) Eosinophils (%) (Auto) 2 % (0-3) Basophils (%) (Auto) 0 % (0-3) Neutrophils # (Auto) 7.7 x10^3/uL (1.8-7.7) Lymphocytes # (Auto) 1.2 x10^3/uL (1.0-4.8) Monocytes # (Auto) 0.8 x10^3/uL (0.0-1.1) Eosinophils # (Auto) 0.2 x10^3/uL (0.0-0.7) Basophils # (Auto) 0.0 x10^3/uL (0.0-0.2) Sodium Level 135 mmol/L (136-145) Potassium Level 3.4 mmol/L (3.5-5.1) Chloride Level 99 mmol/L (98-107) Carbon Dioxide Level 21 mmol/L (21-32) Anion Gap 15 (6-14) Blood Urea Nitrogen 71 mg/dL (7-20) Creatinine 4.6 mg/dL (0.6-1.0) Estimated GFR (Cockcroft-Gault) 9.4 Glucose Level 143 mg/dL (70-99) Calcium Level 8.5 mg/dL (8.5-10.1) Test 12/12/20 11:23 Glucose (Fingerstick) 132 mg/dL (70-99) Assessment and Plan Assessmemt and Plan Assessmemt and Plan Post-Op Day 3 laparoscopic cholecystectomy Acute kidney injury -> probably secondary to contrast? Nephrology consulted Resolving cholecystitis Service Diabetes Hypertension Hyperlipidemia Arrhythmias Transaminase-itis History of breast cancer Plan: - Continue to trend labs for creatinine) -Dialysis per nephrology if needed - Antibiotics - PTOT - Wound care - Provide IV pain management, and antiemetics. - DVT Prophylaxis - Basal/prandial insulin - Resume home medications; denies any history of atrial fibrillation, but does state that she takes diltiazem for years for HTN/cardiac arrhythmia. FEN - NPO; then ADA diet. PPX - Heparin FULL CODE Dispo - inpatient for above Patient names Lora Raymond as her surrogate decision-maker Comment Review of Relevant I have reviewed the following items wally (where applicable) has been applied. Medications: Current Medications Medications (Trade) Dose Ordered Sig/Kaye Route PRN Reason Start Time Stop Time Status Last Admin Dose Admin Sodium Bicarbonate 150 meq/Dextrose 1,150 ml @ 60 mls/hr [id number] IV 12/11/20 13:00 12/12/20 04:37 Piperacillin Sod/ Tazobactam Sod 2.25 gm/Sodium Chloride 50 ml @ 100 mls/hr Q6HRS IV 12/11/20 18:00 12/12/20 06:01 Justifications for Admission General Conditions Other justification for admit: Acute cholecystitis Other Justification LUANNE MELGOZA MD Dec 12, 2020 12:52
[2020-12-12 15:00] VITALS: BP 124/76
[2020-12-12] MEDS: BUTALB/APAP/CAFEIN 50/325/40MG TABLET. PO PRN ×2 (15:27→20:18)
[2020-12-12 19:57] VITALS: BP 116/62
[2020-12-12] MEDS: ZOLPIDEM 5 MG TABLET. PO PRN (20:17)
[2020-12-12] MEDS: INSULIN GLARGINE SYRINGE. SQ SCH (20:47)
[2020-12-12 23:08] VITALS: BP 125/55
[2020-12-12] MEDS: HYDROcodone/APAP 5/325MG 1 TAB TABLET PO PRN (23:15)
[2020-12-13] MEDS: SODIUM BICARBONATE VIAL 150 MEQ in IV DEXTROSE 5% 1,000 ML IV SCH (01:30)
[2020-12-13 03:16] VITALS: BP 107/88
[2020-12-13] MEDS: HYDROcodone/APAP 5/325MG 1 TAB TABLET PO PRN ×2 (04:50→13:24)
[2020-12-13] MEDS: HEPARIN for SUB-Q USE 5,000 UNIT/ML VIAL. SQ SCH ×3 (04:51→21:16)
[2020-12-13] MEDS: PIPERACILLIN/TAZOBACTAM 2.25 GM in IV NORMAL SALINE 50ML 50 ML IV SCH ×3 (04:52→21:15)
[2020-12-13 07:00] VITALS: BP 154/74
[2020-12-13 07:27] LABS: CALCIUM 8.2 mg/dL (8.5-10.1); CREATININE 4.3 mg/dL (0.6-1.0); GFR 10.2
[2020-12-13 07:34] LABS: POTASSIUM 2.9 mmol/L (3.5-5.1)
[2020-12-13] MEDS: POLYETHYLENE GLYCOL 3350 17 GM PACKET. PO SCH (09:00)
[2020-12-13] MEDS: LACTOBACILLUS RHAMNOSUS GG 1 CAPSULE. PO SCH ×2 (09:01→21:14)
[2020-12-13] MEDS: POTASSIUM CHLORIDE 20 MEQ TABLET.ER. PO SCH ×2 (09:08→12:15)
[2020-12-13] MEDS: INSULIN LISPRO 300 UNITS/3 ML VIAL. SQ SCH ×6 (09:08→17:53)
[2020-12-13] MEDS: BUTALB/APAP/CAFEIN 50/325/40MG TABLET. PO PRN ×2 (09:11→21:43)
[2020-12-13 11:06] VITALS: BP 136/72
--- NOTE | 2020-12-13 12:28 | PDOC ---
DATE OF SERVICE DATE: 12/13/20 TIME: 12:24 SUBJECTIVE ROS on RA, Denies N/V . No SOB.States feeling better Had a BM as well OBJECTIVE Vital Signs Vital Signs Date Time Temp Pulse Resp B/P (MAP) Pulse Ox O2 Delivery O2 Flow Rate FiO2 12/13/20 11:06 97.9 74 18 136/72 (93) 97 Room Air 97.9 12/13/20 05:20 2.0 I & 0 Intake and Output 12/13/20 07:00 Intake Total 770 ml Output Total 1605 ml Balance -835 ml Intake Oral 720 ml IV Total 50 ml Output Urine Total 1550 ml Drainage Total 55 ml PHYSICAL EXAM Physical Exam General: Alert, Oriented X3, NAD HEENT: PERRLA, EOMI, OM moist Neck Supple Lungs: Clear to auscultation, Non labored Cardiovascular: S1, S2, No rub Abdomen: soft. Extremities: No clubbing, No cyanosis, No edema Skin: No rashes, No significant lesion Neuro: Normal speech, Normal tone, Sensation intact Psych/Mental Status: Mental status NL, Mood NL ling + , No CVA or SP tenderness DIAGNOSIS/ASSESSMENT Assessment & Plan SHANE - Suspect ATN ; cannot r/o AIN. Use of significant amount of NSAID's recently; Recd IV contrast , Hypotensive (Losartan was not dced) , Oligoanuric initially, Renal function Improving, UOP improving ; Strict I/O,Monitor Losartan held Worsening renal function since prior to surgery ; No UTI on UA at presentation . Baseline Creat 1.0 at presentation (1.3 in 2019 x1) , CT scan at presentation with distended bladder, HypoKalemia- Replace Acute cholecystitis s/p Laparoscopic cholecystectomy with intraoperative cholangiogram on 12/08 ; Dx Acute gangrenous cholecystitis with perforation HypoNatremia - Monitor DM2 with hyperglycemia POA Transaminitis HTN- episodes of Low BP since surgery- as low as 88 systolic Cardiac arrhythmia History of right breast cancer COMMENT/RELEVANT DATA Meds Current Medications Medications (Trade) Dose Ordered Sig/Kaye Start Time Stop Time Status Last Admin Dose Admin Acetaminophen (Tylenol) 650 mg PRN Q6HRS PRN 12/07/20 06:30 12/12/20 09:06 650 MG Acetaminophen/ Butalbital/ Caffeine (Fioricet) 1 tab PRN TID PRN 12/07/20 06:45 12/13/20 09:11 1 TAB Acetaminophen/ Hydrocodone Bitart (Lortab 5/325) 2 tab PRN Q4HRS PRN 12/08/20 10:45 12/13/20 04:50 2 TAB Al Hydroxide/Mg Hydroxide (Mylanta Plus Xs) 30 ml PRN Q3HRS PRN 12/07/20 06:30 12/12/20 04:23 DC Albuterol/ Ipratropium (Duoneb) 3 ml 1X ONCE 12/11/20 04:00 12/11/20 04:01 DC 12/11/20 04:00 3 ML Bupivacaine HCl (Sensorcaine Mpf 0.5%) 30 ml STK-MED ONCE 12/08/20 07:09 12/08/20 07:09 DC 12/08/20 08:23 10 ML Calcium Carbonate/ Glycine (Tums) 500 mg PRN Q3HRS PRN 12/07/20 06:30 12/10/20 22:01 500 MG Cellulose (Surgicel Hemostat 4x8) 1 each STK-MED ONCE 12/08/20 07:09 12/08/20 07:09 DC 12/08/20 08:23 1 EACH Dexamethasone Sodium Phosphate (Decadron) 4 mg STK-MED ONCE 12/08/20 07:19 12/08/20 07:19 DC Dextrose (Dextrose 50%-Water Syringe) 12.5 gm PRN Q15MIN PRN 12/07/20 06:30 Diltiazem HCl (Cardizem 24hr Cd) 240 mg BID 12/07/20 09:00 12/13/20 09:07 240 MG Fentanyl Citrate (Fentanyl 2ml Vial) 100 mcg STK-MED ONCE 12/08/20 10:12 12/08/20 10:13 DC Glycopyrrolate (Robinul) 1 mg STK-MED ONCE 12/08/20 09:30 12/08/20 09:30 DC Heparin Sodium (Porcine) (Heparin Sodium) 5,000 unit Q8HRS 12/07/20 14:00 12/13/20 04:51 5,000 UNIT Hydralazine HCl (Apresoline Inj) 10 mg PRN Q4HRS PRN 12/07/20 06:30 Hydromorphone HCl (Dilaudid) 0.5 mg PRN Q10MIN PRN 12/08/20 07:30 12/08/20 20:00 DC Info (CONTRAST GIVEN -- Rx MONITORING) 1 each PRN DAILY PRN 12/06/20 21:15 12/08/20 21:14 DC Insulin Glargine (Lantus Syringe) 15 unit QHS 12/07/20 21:00 12/12/20 20:47 15 UNIT Insulin Human Lispro (HumaLOG VIAL for OP,RR ONLY) 0-10 units PRN Q1HR PRN 12/08/20 09:00 12/09/20 08:59 DC 12/08/20 09:55 6 UNIT Insulin Human Lispro (HumaLOG) 0-9 UNITS TIDWMEALS 12/07/20 08:00 12/12/20 17:49 5 UNITS Iohexol (Omnipaque 300 Mg/ml) 50 ml STK-MED ONCE 12/08/20 07:08 12/08/20 07:09 DC 12/08/20 08:23 10 ML Labetalol HCl (Normodyne Iv Push) 20 mg PRN Q4HRS PRN 12/07/20 06:30 Lactobacillus Rhamnosus (Culturelle) 1 cap BID 12/09/20 21:00 12/13/20 09:01 1 CAP Levofloxacin/ Dextrose 150 ml @ 100 mls/hr 1X ONCE 12/06/20 21:00 12/06/20 22:29 DC 12/06/20 22:24 100 MLS/HR Lidocaine HCl (Lidocaine Pf 2% Vial) 5 ml STK-MED ONCE 12/08/20 07:19 12/08/20 07:19 DC Losartan Potassium (Cozaar) 50 mg DAILY 12/07/20 09:00 12/09/20 12:59 DC 12/09/20 10:04 50 MG Magnesium Hydroxide (Milk Of Magnesia) 2,400 mg PRN Q12HR PRN 12/07/20 06:30 12/12/20 04:23 DC 12/08/20 17:09 2,400 MG Morphine Sulfate (Morphine Sulfate) 1 mg PRN Q10MIN PRN 12/08/20 07:30 12/08/20 20:00 DC Neostigmine [place] (Neostigmine Methylsulfate) 5 mg STK-MED ONCE 12/08/20 09:30 12/08/20 09:30 DC Non-Formulary Medication (Alendronate Sodium (Fosamax)) 70 mg WEEKLY 12/07/20 09:00 UNV Ondansetron HCl (Zofran) 4 mg STK-MED ONCE 12/08/20 07:19 12/08/20 07:19 DC Phenylephrine HCl (PHENYLEPHRINE in 0.9% NACL PF) 1 mg STK-MED ONCE 12/08/20 08:34 12/08/20 08:34 DC Piperacillin Sod/ Tazobactam Sod (Zosyn Per Pharmacy) 1 each PRN DAILY PRN 12/07/20 07:00 Piperacillin Sod/ Tazobactam Sod 2.25 gm/Sodium Chloride 50 ml @ 100 mls/hr Q8HRS 12/12/20 22:00 12/13/20 04:52 100 MLS/HR Piperacillin Sod/ Tazobactam Sod 3.375 gm/Sodium Chloride 50 ml @ 100 mls/hr Q6HRS 12/07/20 07:30 12/11/20 15:43 DC 12/11/20 13:03 100 MLS/HR Polyethylene Glycol (miraLAX PACKET) 17 gm DAILY 12/09/20 13:00 12/10/20 10:57 17 GM Potassium Chloride (Klor-Con) 40 meq [id number] 12/13/20 08:15 12/13/20 12:01 DC 12/13/20 12:15 40 MEQ Prochlorperazine Edisylate (Compazine) 5 mg PACU PRN PRN 12/08/20 07:30 12/08/20 20:00 DC Propofol (Diprivan) 200 mg STK-MED ONCE 12/08/20 07:19 12/08/20 07:19 DC Ringer's Solution 1,000 ml @ 30 mls/hr Q24H 12/08/20 07:30 12/08/20 19:29 DC 12/08/20 11:21 30 MLS/HR Sodium Bicarbonate 150 meq/Dextrose 1,150 ml @ 60 mls/hr [id number] 12/11/20 13:00 12/13/20 01:30 60 MLS/HR Sodium Chloride 1,000 ml @ 75 mls/hr [id number] 12/09/20 11:15 12/11/20 12:30 DC 12/10/20 17:37 75 MLS/HR Zolpidem Tartrate (Ambien) 5 mg PRN QHS PRN 12/07/20 06:30 12/12/20 20:17 5 MG Lab Laboratory Tests Test 12/12/20 16:42 12/12/20 20:35 12/13/20 06:35 12/13/20 07:59 Glucose (Fingerstick) 229 mg/dL (70-99) 169 mg/dL (70-99) 138 mg/dL (70-99) Sodium Level 140 mmol/L (136-145) Potassium Level 2.9 mmol/L (3.5-5.1) Chloride Level 102 mmol/L (98-107) Carbon Dioxide Level 25 mmol/L (21-32) Anion Gap 13 (6-14) Blood Urea Nitrogen 25 mg/dL (7-20) Creatinine 4.3 mg/dL (0.6-1.0) Estimated GFR (Cockcroft-Gault) 10.2 Glucose Level 124 mg/dL (70-99) Calcium Level 8.2 mg/dL (8.5-10.1) Test 12/13/20 11:48 Glucose (Fingerstick) 116 mg/dL (70-99) Results All relevant outside records, renal labs, imaging studies, telemetry/EKG's were reviewed. Justicifation of Admission Dx: Justifications for Admission: Justification of Admission Dx: Yes ISABELL HEALY MD Dec 13, 2020 12:28
--- NOTE | 2020-12-13 12:40 | PDOC ---
SURGICAL PROGRESS NOTE DATE: 12/13/20 TIME: 12:39 Subjective feeling better eating a little more Vital Signs Vital Signs Date Time Temp Pulse Resp B/P (MAP) Pulse Ox O2 Delivery O2 Flow Rate FiO2 12/13/20 11:06 97.9 74 18 136/72 (93) 97 Room Air 97.9 12/13/20 05:20 2.0 I&O Intake and Output 12/13/20 07:00 Intake Total 770 ml Output Total 1605 ml Balance -835 ml Intake Oral 720 ml IV Total 50 ml Output Urine Total 1550 ml Drainage Total 55 ml General: Alert, Oriented X3, Cooperative Abdomen: Soft, Other (drain serosang) Labs Laboratory Tests Test 12/11/20 16:32 12/11/20 19:42 12/12/20 03:35 12/12/20 07:12 Glucose (Fingerstick) 209 mg/dL (70-99) 216 mg/dL (70-99) 141 mg/dL (70-99) White Blood Count 9.9 x10^3/uL (4.0-11.0) Red Blood Count 3.55 x10^6/uL (3.50-5.40) Hemoglobin 10.9 g/dL (12.0-15.5) Hematocrit 32.6 % (36.0-47.0) Mean Corpuscular Volume 92 fL (79-100) Mean Corpuscular Hemoglobin 31 pg (25-35) Mean Corpuscular Hemoglobin Concent 33 g/dL (31-37) Red Cell Distribution Width 13.3 % (11.5-14.5) Platelet Count 379 x10^3/uL (140-400) Neutrophils (%) (Auto) 78 % (31-73) Lymphocytes (%) (Auto) 12 % (24-48) Monocytes (%) (Auto) 8 % (0-9) Eosinophils (%) (Auto) 2 % (0-3) Basophils (%) (Auto) 0 % (0-3) Neutrophils # (Auto) 7.7 x10^3/uL (1.8-7.7) Lymphocytes # (Auto) 1.2 x10^3/uL (1.0-4.8) Monocytes # (Auto) 0.8 x10^3/uL (0.0-1.1) Eosinophils # (Auto) 0.2 x10^3/uL (0.0-0.7) Basophils # (Auto) 0.0 x10^3/uL (0.0-0.2) Sodium Level 135 mmol/L (136-145) Potassium Level 3.4 mmol/L (3.5-5.1) Chloride Level 99 mmol/L (98-107) Carbon Dioxide Level 21 mmol/L (21-32) Anion Gap 15 (6-14) Blood Urea Nitrogen 71 mg/dL (7-20) Creatinine 4.6 mg/dL (0.6-1.0) Estimated GFR (Cockcroft-Gault) 9.4 Glucose Level 143 mg/dL (70-99) Calcium Level 8.5 mg/dL (8.5-10.1) Test 12/12/20 11:23 12/12/20 16:42 12/12/20 20:35 12/13/20 06:35 Glucose (Fingerstick) 132 mg/dL (70-99) 229 mg/dL (70-99) 169 mg/dL (70-99) Sodium Level 140 mmol/L (136-145) Potassium Level 2.9 mmol/L (3.5-5.1) Chloride Level 102 mmol/L (98-107) Carbon Dioxide Level 25 mmol/L (21-32) Anion Gap 13 (6-14) Blood Urea Nitrogen 25 mg/dL (7-20) Creatinine 4.3 mg/dL (0.6-1.0) Estimated GFR (Cockcroft-Gault) 10.2 Glucose Level 124 mg/dL (70-99) Calcium Level 8.2 mg/dL (8.5-10.1) Test 12/13/20 07:59 12/13/20 11:48 Glucose (Fingerstick) 138 mg/dL (70-99) 116 mg/dL (70-99) Laboratory Tests Test 12/12/20 16:42 12/12/20 20:35 12/13/20 06:35 12/13/20 07:59 Glucose (Fingerstick) 229 mg/dL (70-99) 169 mg/dL (70-99) 138 mg/dL (70-99) Sodium Level 140 mmol/L (136-145) Potassium Level 2.9 mmol/L (3.5-5.1) Chloride Level 102 mmol/L (98-107) Carbon Dioxide Level 25 mmol/L (21-32) Anion Gap 13 (6-14) Blood Urea Nitrogen 25 mg/dL (7-20) Creatinine 4.3 mg/dL (0.6-1.0) Estimated GFR (Cockcroft-Gault) 10.2 Glucose Level 124 mg/dL (70-99) Calcium Level 8.2 mg/dL (8.5-10.1) Test 12/13/20 11:48 Glucose (Fingerstick) 116 mg/dL (70-99) Assessment/Plan stable surgically continue drain for now Justicifation of Admission Dx: Justifications for Admission: Justification of Admission Dx: Yes TABITHA MAGDALENO [employer] MARKER DESIGNER Dec 13, 2020 12:40
--- NOTE | 2020-12-13 12:50 | NUR ---
SW following. Discussed with RN, pt from home with mother, COVID-19 negative. Not ready to discharge yet, per Dr. Ellison. SW will continue to follow.
--- NOTE | 2020-12-13 13:44 | PDOC ---
[facility] [facility] PROGRESS NOTE Date of Service DOS: DATE: 12/13/20 TIME: 13:42 Chief Complaint Chief Complaint Postop day 3 laparoscopic cholecystectomy Acute kidney injury probably secondary to contrast? (Her baseline creatinine was 1 now her creatinine is 4.6) nephrology following Service Diabetes Hypertension Hyperlipidemia Arrhythmias Transaminase-itis History of breast cancer History of Present Illness History of Present Illness 12/13 Patient evaluated and examined at bedside. No major events overnight. Creatinine remains quite elevated. Tolerating diet a little bit better. Drain remains in place. Continue monitoring creatinine daily. Nephro following. Surgery following. 12/11: Pt was seen, examined, and their chart was reviewed. Pt's creatinine has increased again to 4.9, so will continue to give IV fluids and hold off on dialysis for now since the pt's O2 levels are fine. Discussed with RN and JAXON. 12/10: Pt was seen, examined, and their chart was reviewed Pt's creatinine bumped up again to 4.3, thus we awaiting to see further results with continued IV Fluids. Discussed with RN and JAXON. 12/09/2020 Patient seen and examined Her creatinine bumped up to 3.4 (I suspect this might be contrast induced?) Discussed with RN Chart reviewed 70-year-old female with past medical history DM2, HTN, right breast cancer, who presents to the ED with complaints of worsening epigastric pain for the past 3 days. She reports sharp pain, 7/10, that is aggravated by deep inspiration. Associated nausea, vomiting, and anorexia. She denies any fever, diarrhea, shortness of breath, or recent injury. In the ED labs showed WBC 42.1, platelets 431, CBG 337, AST 202, ALT 166, alkaline phos 148, BNP 1457, troponin <0.017, lactic acid 1.5, albumin 3.2. She received broad-spectrum antibiotics and IV fluids. CT abdomen/pelvis showed findings favored to represent acute cholecystitis. She received broad-spectrum antibiotics and IV fluids. She has been fully vaccinated against COVID-19. Quite elevated from the be admitted with general surgery consultation. 12/08/2020: Afebrile. Pain increased overnight, increase as needed IV pain medication. Abdominal ultrasound showed acute calculus cholecystitis, without common bile duct dilation. Plan for surgery today. Vitals/I&O Vitals/I&O: Vital Signs Date Time Temp Pulse Resp B/P (MAP) Pulse Ox O2 Delivery O2 Flow Rate FiO2 12/13/20 13:24 Room Air 12/13/20 11:06 97.9 74 18 136/72 (93) 97 97.9 12/13/20 05:20 2.0 I & O 12/12/20 12/12/20 12/13/20 15:00 23:00 07:00 Intake Total 530 ml 240 ml Output Total 450 ml 1155 ml Balance 80 ml 240 ml -1155 ml Physical Exam General: Alert, Oriented X3, Cooperative Heart: Regular rate Lungs: Clear Abdomen: Soft, Other (drain serosang) Extremities: No clubbing, No cyanosis Skin: No rashes Labs Labs: Laboratory Tests Test 12/12/20 16:42 12/12/20 20:35 12/13/20 06:35 12/13/20 07:59 Glucose (Fingerstick) 229 mg/dL (70-99) 169 mg/dL (70-99) 138 mg/dL (70-99) Sodium Level 140 mmol/L (136-145) Potassium Level 2.9 mmol/L (3.5-5.1) Chloride Level 102 mmol/L (98-107) Carbon Dioxide Level 25 mmol/L (21-32) Anion Gap 13 (6-14) Blood Urea Nitrogen 25 mg/dL (7-20) Creatinine 4.3 mg/dL (0.6-1.0) Estimated GFR (Cockcroft-Gault) 10.2 Glucose Level 124 mg/dL (70-99) Calcium Level 8.2 mg/dL (8.5-10.1) Test 12/13/20 11:48 Glucose (Fingerstick) 116 mg/dL (70-99) Comment Review of Relevant I have reviewed the following items wally (where applicable) has been applied. Medications: Current Medications Medications (Trade) Dose Ordered Sig/Kaye Route PRN Reason Start Time Stop Time Status Last Admin Dose Admin Piperacillin Sod/ Tazobactam Sod 2.25 gm/Sodium Chloride 50 ml @ 100 mls/hr Q8HRS IV 12/12/20 22:00 12/13/20 04:52 Potassium Chloride (Klor-Con) 40 meq [id number] PO 12/13/20 08:15 12/13/20 12:01 DC 12/13/20 12:15 Justifications for Admission General Conditions Other justification for admit: Acute cholecystitis Other Justification LUANNE MELGOZA MD Dec 13, 2020 13:44
[2020-12-13 15:00] VITALS: BP 121/53
[2020-12-13 19:00] VITALS: BP 144/71
[2020-12-13] MEDS: INSULIN GLARGINE SYRINGE. SQ SCH (21:15)
[2020-12-13] MEDS: ZOLPIDEM 5 MG TABLET. PO PRN (21:43)
[2020-12-13 23:00] VITALS: BP 155/69
[2020-12-14] MEDS: SODIUM BICARBONATE VIAL 150 MEQ in IV DEXTROSE 5% 1,000 ML IV SCH ×2 (01:35→20:10)
[2020-12-14 03:08] VITALS: BP 161/75
[2020-12-14] MEDS: PIPERACILLIN/TAZOBACTAM 2.25 GM in IV NORMAL SALINE 50ML 50 ML IV SCH ×3 (06:17→22:06)
[2020-12-14] MEDS: HEPARIN for SUB-Q USE 5,000 UNIT/ML VIAL. SQ SCH ×3 (06:21→22:00)
[2020-12-14 07:00] VITALS: BP 155/75
[2020-12-14] MEDS: INSULIN LISPRO 300 UNITS/3 ML VIAL. SQ SCH ×6 (08:00→16:38)
--- NOTE | 2020-12-14 08:38 | PDOC ---
TABITHA MAGDALENO MANUFACTURERS AGENT 12/14/20 0838: SURGICAL PROGRESS NOTE DATE: 12/14/20 TIME: 08:37 Subjective tolerating diet gas pain no nausea having stools Vital Signs Vital Signs Date Time Temp Pulse Resp B/P (MAP) Pulse Ox O2 Delivery O2 Flow Rate FiO2 12/14/20 03:08 97.9 76 18 161/75 (103) 95 Room Air 97.9 I&O Intake and Output 12/14/20 07:00 Intake Total 660 ml Output Total 2430 ml Balance -1770 ml Intake Oral 660 ml Output Urine Total 2200 ml Drainage Total 230 ml General: Alert, Oriented X3, Cooperative Abdomen: Soft, Other (drain serosang ) Labs Laboratory Tests Test 12/12/20 11:23 12/12/20 16:42 12/12/20 20:35 12/13/20 06:35 Glucose (Fingerstick) 132 mg/dL (70-99) 229 mg/dL (70-99) 169 mg/dL (70-99) Sodium Level 140 mmol/L (136-145) Potassium Level 2.9 mmol/L (3.5-5.1) Chloride Level 102 mmol/L (98-107) Carbon Dioxide Level 25 mmol/L (21-32) Anion Gap 13 (6-14) Blood Urea Nitrogen 25 mg/dL (7-20) Creatinine 4.3 mg/dL (0.6-1.0) Estimated GFR (Cockcroft-Gault) 10.2 Glucose Level 124 mg/dL (70-99) Calcium Level 8.2 mg/dL (8.5-10.1) Test 12/13/20 07:59 12/13/20 11:48 12/13/20 16:22 12/13/20 20:11 Glucose (Fingerstick) 138 mg/dL (70-99) 116 mg/dL (70-99) 176 mg/dL (70-99) 154 mg/dL (70-99) Test 12/14/20 08:05 Glucose (Fingerstick) 132 mg/dL (70-99) Laboratory Tests Test 12/13/20 11:48 12/13/20 16:22 12/13/20 20:11 12/14/20 08:05 Glucose (Fingerstick) 116 mg/dL (70-99) 176 mg/dL (70-99) 154 mg/dL (70-99) 132 mg/dL (70-99) Assessment/Plan s/p manan stable surgically dc ling when ok with IPC, renal work toward home soon Justicifation of Admission Dx: Justifications for Admission: Justification of Admission Dx: Yes MIGUEL ÁNGEL ARZOLA MD 12/14/20 1035: SURGICAL PROGRESS NOTE Assessment/Plan Agree with [place] assessment plan TABITHA MAGDALENO APRN Dec 14, 2020 08:38 MIGUEL ÁNGEL ARZOLA MD Dec 14, 2020 10:35
[2020-12-14 08:43] LABS: CALCIUM 7.9 mg/dL (8.5-10.1); CREATININE 3.5 mg/dL (0.6-1.0); GFR 12.9
[2020-12-14] MEDS: POLYETHYLENE GLYCOL 3350 17 GM PACKET. PO SCH (09:00)
[2020-12-14] MEDS: LACTOBACILLUS RHAMNOSUS GG 1 CAPSULE. PO SCH ×2 (09:02→21:52)
[2020-12-14] MEDS: BUTALB/APAP/CAFEIN 50/325/40MG TABLET. PO PRN (09:10)
--- NOTE | 2020-12-14 10:51 | PDOC ---
[facility] PROGRESS NOTE Date of Service DOS: DATE: 12/14/20 TIME: 10:50 Chief Complaint Chief Complaint Postop day 3 laparoscopic cholecystectomy Acute kidney injury probably secondary to contrast? (Her baseline creatinine was 1 now her creatinine is 4.6) nephrology following Service Diabetes Hypertension Hyperlipidemia Arrhythmias Transaminase-itis History of breast cancer History of Present Illness History of Present Illness 12/14 Patient evaluated and examined at bedside. Creatinine actually some improvement this morning down to 3.5. We will continue to monitor daily. Tolerating diet. Drain remains in place. Good likelihood of discharge in the next couple of days. 12/13 Patient evaluated and examined at bedside. No major events overnight. Creatinine remains quite elevated. Tolerating diet a little bit better. Drain remains in place. Continue monitoring creatinine daily. Nephro following. Surgery following. 12/11: Pt was seen, examined, and their chart was reviewed. Pt's creatinine has increased again to 4.9, so will continue to give IV fluids and hold off on dialysis for now since the pt's O2 levels are fine. Discussed with RN and JAXON. 12/10: Pt was seen, examined, and their chart was reviewed Pt's creatinine bumped up again to 4.3, thus we awaiting to see further results with continued IV Fluids. Discussed with RN and SW. 12/09/2020 Patient seen and examined Her creatinine bumped up to 3.4 (I suspect this might be contrast induced?) Discussed with RN Chart reviewed 70-year-old female with past medical history DM2, HTN, right breast cancer, who presents to the ED with complaints of worsening epigastric pain for the past 3 days. She reports sharp pain, 7/10, that is aggravated by deep inspiration. Associated nausea, vomiting, and anorexia. She denies any fever, diarrhea, shortness of breath, or recent injury. In the ED labs showed WBC 42.1, platelets 431, CBG 337, AST 202, ALT 166, alkaline phos 148, BNP 1457, troponin <0.017, lactic acid 1.5, albumin 3.2. She received broad-spectrum antibiotics and IV fl uids. CT abdomen/pelvis showed findings favored to represent acute cholecystitis. She received broad-spectrum antibiotics and IV fluids. She has been fully vaccinated against COVID-19. Quite elevated from the be admitted with general surgery consultation. 12/08/2020: Afebrile. Pain increased overnight, increase as needed IV pain medication. Abdominal ultrasound showed acute calculus cholecystitis, without common bile duct dilation. Plan for surgery today. Vitals/I&O Vitals/I&O: Vital Signs Date Time Temp Pulse Resp B/P (MAP) Pulse Ox O2 Delivery O2 Flow Rate FiO2 12/14/20 09:02 76 161/75 12/14/20 07:00 97.9 18 92 Room Air 97.9 I & O 12/13/20 12/13/20 12/14/20 15:00 23:00 07:00 Intake Total 420 ml 240 ml Output Total 570 ml 670 ml 1190 ml Balance -150 ml -430 ml -1190 ml Physical Exam General: Alert, Oriented X3, Cooperative Heart: Regular rate Lungs: Clear Abdomen: Soft, Other (drain serosang ) Extremities: No clubbing, No cyanosis Skin: No rashes Labs Labs: Laboratory Tests Test 12/13/20 11:48 12/13/20 16:22 12/13/20 20:11 12/14/20 07:25 Glucose (Fingerstick) 116 mg/dL (70-99) 176 mg/dL (70-99) 154 mg/dL (70-99) Sodium Level 142 mmol/L (136-145) Potassium Level 3.0 mmol/L (3.5-5.1) Chloride Level 104 mmol/L (98-107) Carbon Dioxide Level 28 mmol/L (21-32) Anion Gap 10 (6-14) Blood Urea Nitrogen 51 mg/dL (7-20) Creatinine 3.5 mg/dL (0.6-1.0) Estimated GFR (Cockcroft-Gault) 12.9 Glucose Level 122 mg/dL (70-99) Calcium Level 7.9 mg/dL (8.5-10.1) Test 12/14/20 08:05 Glucose (Fingerstick) 132 mg/dL (70-99) Comment Review of Relevant I have reviewed the following items wally (where applicable) has been applied. Justifications for Admission General Conditions Other justification for admit: Acute cholecystitis Other Justification LUANNE MELGOZA MD Dec 14, 2020 10:51
[2020-12-14 11:00] VITALS: BP 154/68
--- NOTE | 2020-12-14 11:11 | PDOC ---
Renal-Progress Notes Subjective Notes Notes NO NEW COMPLAINTS History of Present Illness Hx of present illness STABLE Vitals Vitals Vital Signs Date Time Temp Pulse Resp B/P (MAP) Pulse Ox O2 Delivery O2 Flow Rate FiO2 12/14/20 09:02 76 161/75 12/14/20 07:00 97.9 18 92 Room Air 97.9 Weight Weight [ ] I.O. Intake and Output Intake and Output 12/14/20 07:00 Intake Total 660 ml Output Total 2430 ml Balance -1770 ml Intake Oral 660 ml Output Urine Total 2200 ml Drainage Total 230 ml Labs Labs Laboratory Tests Test 12/13/20 11:48 12/13/20 16:22 12/13/20 20:11 12/14/20 07:25 Glucose (Fingerstick) 116 mg/dL (70-99) 176 mg/dL (70-99) 154 mg/dL (70-99) Sodium Level 142 mmol/L (136-145) Potassium Level 3.0 mmol/L (3.5-5.1) Chloride Level 104 mmol/L (98-107) Carbon Dioxide Level 28 mmol/L (21-32) Anion Gap 10 (6-14) Blood Urea Nitrogen 51 mg/dL (7-20) Creatinine 3.5 mg/dL (0.6-1.0) Estimated GFR (Cockcroft-Gault) 12.9 Glucose Level 122 mg/dL (70-99) Calcium Level 7.9 mg/dL (8.5-10.1) Test 12/14/20 08:05 Glucose (Fingerstick) 132 mg/dL (70-99) Micro Micro Microbiology 12/06/20 Blood Culture - Final, Complete NO GROWTH AFTER 5 DAYS Review of Systems Constitutional: yes: weakness, alert Ears/Nose/Throat: Yes: no symptom reported Eyes: Yes: no symptom reported Cardiovascular: Yes no symptom reported Gastrointestional: Yes: nausea Genitourinary: Yes: no symptom reported Musculoskeletal: Yes: muscle stiffness Skin: Yes no symptom reported Psychiatric/Neurological: Yes: no symptom reported Endocrine: Yes: no symptom reported Physical Exam General Appearance: no apparent distress Skin: warm Respiratory: bilateral CTA Heart: S1S2 Abdomen: soft, bowel sounds present Genitourinary: bladder flat Extremities: pulses present Neurology: alert Assessment Assessment IMP [id number] OF 4.9 TO 3.5-NO CKD HYPOKALEMIA S/P LAP CHOLY TRANSAMINITIS DM II HTN PLAN ANTIBIOTICS HYDRATION REPLACE K CONT TO MONITOR FOR RENAL RECOVERY VALERIA BRADSHAW MD Dec 14, 2020 11:11
[2020-12-14] MEDS ORDERED: POTASSIUM CHLORIDE 20 MEQ TABLET.ER. PO ONE (11:30)
[2020-12-14 15:00] VITALS: BP 134/78
[2020-12-14 19:00] VITALS: BP 169/82
[2020-12-14] MEDS: INSULIN GLARGINE SYRINGE. SQ SCH (22:01)
[2020-12-14] MEDS: ZOLPIDEM 5 MG TABLET. PO PRN (22:05)
[2020-12-14] MEDS: ACETAMINOPHEN 325 MG TABLET. PO PRN (22:05)
[2020-12-14 23:04] VITALS: BP 175/86
[2020-12-15 03:14] VITALS: BP 163/71
[2020-12-15 07:00] VITALS: BP 166/79
[2020-12-15] MEDS: INSULIN LISPRO 300 UNITS/3 ML VIAL. SQ SCH ×6 (08:00→17:00)
[2020-12-15 08:24] LABS: CALCIUM 7.6 mg/dL (8.5-10.1); CREATININE 2.8 mg/dL (0.6-1.0); GFR 16.7
[2020-12-15 08:29] LABS: POTASSIUM 2.8 mmol/L (3.5-5.1)
[2020-12-15 08:35] LABS: MAGNESIUM 1.3 mg/dL (1.8-2.4); PHOSPHORUS 4.5 mg/dL (2.6-4.7)
--- NOTE | 2020-12-15 08:37 | PDOC ---
TABITHA MAGDALENO [employer] 12/15/20 0837: SURGICAL PROGRESS NOTE DATE: 12/15/20 TIME: 08:36 Subjective feeling better each day no n/v Vital Signs Vital Signs Date Time Temp Pulse Resp B/P (MAP) Pulse Ox O2 Delivery O2 Flow Rate FiO2 12/15/20 03:14 98.0 70 18 163/71 (101) 96 Room Air 98.0 12/14/20 08:09 2.0 I&O Intake and Output 12/15/20 07:00 Intake Total 720 ml Output Total 2500 ml Balance -1780 ml Intake Oral 720 ml Output Urine Total 2500 ml # Bowel Movements 3 General: Alert, Oriented X3, Cooperative Abdomen: Soft, Other (ND, drain serosang) Labs Laboratory Tests Test 12/13/20 11:48 12/13/20 16:22 12/13/20 20:11 12/14/20 07:25 Glucose (Fingerstick) 116 mg/dL (70-99) 176 mg/dL (70-99) 154 mg/dL (70-99) Sodium Level 142 mmol/L (136-145) Potassium Level 3.0 mmol/L (3.5-5.1) Chloride Level 104 mmol/L (98-107) Carbon Dioxide Level 28 mmol/L (21-32) Anion Gap 10 (6-14) Blood Urea Nitrogen 51 mg/dL (7-20) Creatinine 3.5 mg/dL (0.6-1.0) Estimated GFR (Cockcroft-Gault) 12.9 Glucose Level 122 mg/dL (70-99) Calcium Level 7.9 mg/dL (8.5-10.1) Test 12/14/20 08:05 12/14/20 10:47 12/14/20 16:30 12/15/20 07:10 Glucose (Fingerstick) 132 mg/dL (70-99) 243 mg/dL (70-99) 84 mg/dL (70-99) Sodium Level 143 mmol/L (136-145) Potassium Level 2.8 mmol/L (3.5-5.1) Chloride Level 104 mmol/L (98-107) Carbon Dioxide Level 31 mmol/L (21-32) Anion Gap 8 (6-14) Blood Urea Nitrogen 42 mg/dL (7-20) Creatinine 2.8 mg/dL (0.6-1.0) Estimated GFR (Cockcroft-Gault) 16.7 Glucose Level 107 mg/dL (70-99) Calcium Level 7.6 mg/dL (8.5-10.1) Laboratory Tests Test 12/14/20 10:47 12/14/20 16:30 12/15/20 07:10 Glucose (Fingerstick) 243 mg/dL (70-99) 84 mg/dL (70-99) Sodium Level 143 mmol/L (136-145) Potassium Level 2.8 mmol/L (3.5-5.1) Chloride Level 104 mmol/L (98-107) Carbon Dioxide Level 31 mmol/L (21-32) Anion Gap 8 (6-14) Blood Urea Nitrogen 42 mg/dL (7-20) Creatinine 2.8 mg/dL (0.6-1.0) Estimated GFR (Cockcroft-Gault) 16.7 Glucose Level 107 mg/dL (70-99) Calcium Level 7.6 mg/dL (8.5-10.1) Assessment/Plan stable surgically will dc ambrocio prior to discharge Justicifation of Admission Dx: Justifications for Admission: Justification of Admission Dx: Yes MIGUEL ÁNGEL ARZOLA MD 12/15/20 1034: SURGICAL PROGRESS NOTE Assessment/Plan Agree with Alfonzo's assessment and plan TABITHA MAGDALENO APRN Dec 15, 2020 08:37 MIGUEL ÁNGEL ARZOLA MD Dec 15, 2020 10:34
[2020-12-15] MEDS: PIPERACILLIN/TAZOBACTAM 2.25 GM in IV NORMAL SALINE 50ML 50 ML IV SCH ×3 (08:45→21:41)
[2020-12-15] MEDS: HEPARIN for SUB-Q USE 5,000 UNIT/ML VIAL. SQ SCH ×3 (08:46→22:33)
[2020-12-15] MEDS: LACTOBACILLUS RHAMNOSUS GG 1 CAPSULE. PO SCH ×2 (08:48→21:41)
[2020-12-15] MEDS: BUTALB/APAP/CAFEIN 50/325/40MG TABLET. PO PRN ×2 (08:49→16:53)
[2020-12-15] MEDS: POLYETHYLENE GLYCOL 3350 17 GM PACKET. PO SCH (08:49)
--- NOTE | 2020-12-15 10:49 | PDOC ---
Renal-Progress Notes Subjective Notes Notes NO NEW COMPLAINTS History of Present Illness Hx of present illness STABLE Vitals Vitals Vital Signs Date Time Temp Pulse Resp B/P (MAP) Pulse Ox O2 Delivery O2 Flow Rate FiO2 12/15/20 08:49 70 163/71 12/15/20 07:00 98.2 16 97 Room Air 98.2 12/14/20 08:09 2.0 Weight Weight [ ] I.O. Intake and Output Intake and Output 12/15/20 07:00 Intake Total 720 ml Output Total 2500 ml Balance -1780 ml Intake Oral 720 ml Output Urine Total 2500 ml # Bowel Movements 3 Labs Labs Laboratory Tests Test 12/14/20 16:30 12/15/20 07:10 12/15/20 08:06 Glucose (Fingerstick) 84 mg/dL (70-99) 104 mg/dL (70-99) Sodium Level 143 mmol/L (136-145) Potassium Level 2.8 mmol/L (3.5-5.1) Chloride Level 104 mmol/L (98-107) Carbon Dioxide Level 31 mmol/L (21-32) Anion Gap 8 (6-14) Blood Urea Nitrogen 42 mg/dL (7-20) Creatinine 2.8 mg/dL (0.6-1.0) Estimated GFR (Cockcroft-Gault) 16.7 Glucose Level 107 mg/dL (70-99) Calcium Level 7.6 mg/dL (8.5-10.1) Phosphorus Level 4.5 mg/dL (2.6-4.7) Magnesium Level 1.3 mg/dL (1.8-2.4) Micro Micro Microbiology 12/06/20 Blood Culture - Final, Complete NO GROWTH AFTER 5 DAYS Review of Systems Constitutional: yes: weakness, alert Ears/Nose/Throat: Yes: no symptom reported Eyes: Yes: no symptom reported Cardiovascular: Yes no symptom reported Gastrointestional: Yes: nausea Genitourinary: Yes: no symptom reported Musculoskeletal: Yes: muscle stiffness Skin: Yes no symptom reported Psychiatric/Neurological: Yes: no symptom reported Endocrine: Yes: no symptom reported Physical Exam General Appearance: no apparent distress Skin: warm Respiratory: bilateral CTA Heart: S1S2 Abdomen: soft, bowel sounds present Genitourinary: bladder flat Extremities: pulses present Neurology: alert Assessment Assessment IMP [id number] OF 4.9 TO 2.8-NO CKD HYPOKALEMIA S/P LAP CHOLY TRANSAMINITIS DM II HTN PLAN ANTIBIOTICS CHANGE IVF TO ISOTONIC SALINE REPLACE K CHECK MAG CONT TO MONITOR FOR RENAL RECOVERY VALERIA BRADSHAW MD Dec 15, 2020 10:49
[2020-12-15 11:00] VITALS: BP 148/71
[2020-12-15] MEDS ORDERED: POTASSIUM CHLORIDE 20 MEQ TABLET.ER. PO ONE (11:00)
[2020-12-15] MEDS: IV 1/2 NORMAL SALINE 1,000 ML IV SCH (11:00)
--- NOTE | 2020-12-15 12:47 | PDOC ---
[facility] [facility] PROGRESS NOTE Date of Service DOS: DATE: 12/15/20 TIME: 12:46 Chief Complaint Chief Complaint Postop day 3 laparoscopic cholecystectomy Acute kidney injury probably secondary to contrast? (Her baseline creatinine was 1 now her creatinine is 4.6) nephrology following Service Diabetes Hypertension Hyperlipidemia Arrhythmias Transaminase-itis History of breast cancer History of Present Illness History of Present Illness 12/15 Patient evaluate examined at bedside. Creatinine continues to improve. Switching fluids today. Monitoring creatinine. Continue antibiotics. Patient without any complaints stable. Plan of care discussed with bedside RN. 12/14 Patient evaluated and examined at bedside. Creatinine actually some improvement this morning down to 3.5. We will continue to monitor daily. Tolerating diet. Drain remains in place. Good likelihood of discharge in the next couple of d ays. 12/13 Patient evaluated and examined at bedside. No major events overnight. Creatinine remains quite elevated. Tolerating diet a little bit better. Drain remains in place. Continue monitoring creatinine daily. Nephro following. Surgery following. 12/11: Pt was seen, examined, and their chart was reviewed. Pt's creatinine has increased again to 4.9, so will continue to give IV fluids and hold off on dialysis for now since the pt's O2 levels are fine. Discussed with RN and JAXON. 12/10: Pt was seen, examined, and their chart was reviewed Pt's creatinine bumped up again to 4.3, thus we awaiting to see further results with continued IV Fluids. Discussed with RN and JAXON. 12/09/2020 Patient seen and examined Her creatinine bumped up to 3.4 (I suspect this might be contrast induced?) Discussed with RN Chart reviewed 70-year-old female with past medical history DM2, HTN, right breast cancer, who presents to the ED with complaints of worsening epigastric pain for the past 3 days. She reports sharp pain, 7/10, that is aggravated by deep inspiration. Associated nausea, vomiting, and anorexia. She denies any fever, diarrhea, shortness of breath, or recent injury. In the ED labs showed WBC 42.1, platelets 431, CBG 337, AST 202, ALT 166, alkaline phos 148, BNP 1457, troponin <0.017, lactic acid 1.5, albumin 3.2. She received broad-spectrum antibiotics and IV fluids. CT abdomen/pelvis showed findings favored to represent acute cholecystitis. She received broad-spectrum antibiotics and IV fluids. She has been fully vaccinated against COVID-19. Quite elevated from the be admitted with general surgery consultation. 12/08/2020: Afebrile. Pain increased overnight, increase as needed IV pain medication. Abdominal ultrasound showed acute calculus cholecystitis, without common bile duct dilation. Plan for surgery today. Vitals/I&O Vitals/I&O: Vital Signs Date Time Temp Pulse Resp B/P (MAP) Pulse Ox O2 Delivery O2 Flow Rate FiO2 12/15/20 08:49 70 163/71 12/15/20 08:07 Room Air 2.0 12/15/20 07:00 98.2 16 97 98.2 I & O 12/14/20 12/14/20 12/15/20 15:00 23:00 07:00 Intake Total 480 ml 240 ml Output Total 1200 ml 1300 ml Balance 480 ml -960 ml -1300 ml Physical Exam General: Alert, Oriented X3, Cooperative Heart: Regular rate Lungs: Clear Abdomen: Soft, Other (ND, drain serosang) Extremities: No clubbing, No cyanosis Skin: No rashes Labs Labs: Laboratory Tests Test 12/14/20 16:30 12/15/20 07:10 12/15/20 08:06 12/15/20 12:09 Glucose (Fingerstick) 84 mg/dL (70-99) 104 mg/dL (70-99) 190 mg/dL (70-99) Sodium Level 143 mmol/L (136-145) Potassium Level 2.8 mmol/L (3.5-5.1) Chloride Level 104 mmol/L (98-107) Carbon Dioxide Level 31 mmol/L (21-32) Anion Gap 8 (6-14) Blood Urea Nitrogen 42 mg/dL (7-20) Creatinine 2.8 mg/dL (0.6-1.0) Estimated GFR (Cockcroft-Gault) 16.7 Glucose Level 107 mg/dL (70-99) Calcium Level 7.6 mg/dL (8.5-10.1) Phosphorus Level 4.5 mg/dL (2.6-4.7) Magnesium Level 1.3 mg/dL (1.8-2.4) Comment Review of Relevant I have reviewed the following items wally (where applicable) has been applied. Justifications for Admission General Conditions Other justification for admit: Acute cholecystitis Other Justification LUANNE MELGOZA MD Dec 15, 2020 12:47
[2020-12-15 15:00] VITALS: BP 148/68
[2020-12-15 19:00] VITALS: BP 160/83
[2020-12-15] MEDS: ZOLPIDEM 5 MG TABLET. PO PRN (21:52)
[2020-12-15] MEDS: INSULIN GLARGINE SYRINGE. SQ SCH (22:32)
[2020-12-15 23:43] VITALS: BP 145/81
[2020-12-16] MEDS: IV 1/2 NORMAL SALINE 1,000 ML IV SCH (02:15)
[2020-12-16 03:26] VITALS: BP 155/74
[2020-12-16 05:08] LABS: CALCIUM 7.5 mg/dL (8.5-10.1); CREATININE 2.5 mg/dL (0.6-1.0); MAGNESIUM 1.2 mg/dL (1.8-2.4)
[2020-12-16] MEDS ORDERED: POTASSIUM CHLORIDE 20 MEQ TABLET.ER. PO ONE (06:00)
[2020-12-16] MEDS: PIPERACILLIN/TAZOBACTAM 2.25 GM in IV NORMAL SALINE 50ML 50 ML IV SCH ×3 (06:18→20:44)
[2020-12-16] MEDS: HEPARIN for SUB-Q USE 5,000 UNIT/ML VIAL. SQ SCH ×3 (06:25→21:10)
[2020-12-16 07:00] VITALS: BP 118/64
[2020-12-16] MEDS: INSULIN LISPRO 300 UNITS/3 ML VIAL. SQ SCH ×6 (08:00→17:00)
[2020-12-16] MEDS ORDERED: MAGNESIUM SULFATE 2GM 50 ML IV ONE (08:00)
[2020-12-16] MEDS: LACTOBACILLUS RHAMNOSUS GG 1 CAPSULE. PO SCH ×2 (08:53→20:43)
[2020-12-16] MEDS: POLYETHYLENE GLYCOL 3350 17 GM PACKET. PO SCH (09:00)
--- NOTE | 2020-12-16 10:10 | PDOC ---
DATE OF SERVICE DATE: 12/16/20 TIME: 10:09 SUBJECTIVE ROS on RA, Denies N/V . No SOB.States feeling better OBJECTIVE Vital Signs Vital Signs Date Time Temp Pulse Resp B/P (MAP) Pulse Ox O2 Delivery O2 Flow Rate FiO2 12/16/20 08:54 75 118/64 12/16/20 08:00 Room Air 12/16/20 07:00 97.9 18 97 97.9 12/15/20 08:07 2.0 I & 0 Intake and Output 12/16/20 07:00 Intake Total 200 ml Output Total 450 ml Balance -250 ml Intake Oral 200 ml Output Urine Total 450 ml # Voids 6 # Bowel Movements 2 PHYSICAL EXAM Physical Exam General: Alert, Oriented X3, NAD HEENT: PERRLA, EOMI, OM moist Neck Supple Lungs: Clear to auscultation, Non labored Cardiovascular: S1, S2, No rub Abdomen: soft. Extremities: No clubbing, No cyanosis, No edema Skin: No rashes, No significant lesion Neuro: Normal speech, Normal tone, Sensation intact Psych/Mental Status: Mental status NL, Mood NL ling + , No CVA or SP tenderness DIAGNOSIS/ASSESSMENT Assessment & Plan SHANE - ATN 2/2 NSAID's ; Recd IV contrast , Hypotension (Losartan was not dced) , Oligoanuric initially,Renal function Improving, ; Strict I/O,Monitor Losartan held . DC IVF, encourage po intake Worsening renal function since prior to surgery ; No UTI on UA at presentation . Baseline Creat 1.0 at presentation (1.3 in 2019 x1) , CT scan at presentation with distended bladder, HypoKalemia- Replace Acute cholecystitis s/p Laparoscopic cholecystectomy with intraoperative cholangiogram on 12/08 ; Dx Acute gangrenous cholecystitis with perforation HypoNatremia - Resolved DM2 with hyperglycemia POA Transaminitis HTN- episodes of Low BP since surgery- as low as 88 systolic Cardiac arrhythmia History of right breast cancer COMMENT/RELEVANT DATA Meds Current Medications Medications (Trade) Dose Ordered Sig/Kaye Start Time Stop Time Status Last Admin Dose Admin Acetaminophen (Tylenol) 650 mg PRN Q6HRS PRN 12/07/20 06:30 12/14/20 22:05 650 MG Acetaminophen/ Butalbital/ Caffeine (Fioricet) 1 tab PRN TID PRN 12/07/20 06:45 12/15/20 16:53 1 TAB Acetaminophen/ Hydrocodone Bitart (Lortab 5/325) 2 tab PRN Q4HRS PRN 12/08/20 10:45 12/13/20 13:24 2 TAB Al Hydroxide/Mg Hydroxide (Mylanta Plus Xs) 30 ml PRN Q3HRS PRN 12/07/20 06:30 12/12/20 04:23 DC Albuterol/ Ipratropium (Duoneb) 3 ml 1X ONCE 12/11/20 04:00 12/11/20 04:01 DC 12/11/20 04:00 3 ML Bupivacaine HCl (Sensorcaine Mpf 0.5%) 30 ml STK-MED ONCE 12/08/20 07:09 12/08/20 07:09 DC 12/08/20 08:23 10 ML Calcium Carbonate/ Glycine (Tums) 500 mg PRN Q3HRS PRN 12/07/20 06:30 12/10/20 22:01 500 MG Cellulose (Surgicel Hemostat 4x8) 1 each STK-MED ONCE 12/08/20 07:09 12/08/20 07:09 DC 12/08/20 08:23 1 EACH Dexamethasone Sodium Phosphate (Decadron) 4 mg STK-MED ONCE 12/08/20 07:19 12/08/20 07:19 DC Dextrose (Dextrose 50%-Water Syringe) 12.5 gm PRN Q15MIN PRN 12/07/20 06:30 Diltiazem HCl (Cardizem 24hr Cd) 240 mg BID 12/07/20 09:00 12/16/20 08:54 240 MG Fentanyl Citrate (Fentanyl 2ml Vial) 100 mcg STK-MED ONCE 12/08/20 10:12 12/08/20 10:13 DC Glycopyrrolate (Robinul) 1 mg STK-MED ONCE 12/08/20 09:30 12/08/20 09:30 DC Heparin Sodium (Porcine) (Heparin Sodium) 5,000 unit Q8HRS 12/07/20 14:00 12/16/20 06:25 5,000 UNIT Hydralazine HCl (Apresoline Inj) 10 mg PRN Q4HRS PRN 12/07/20 06:30 Hydromorphone HCl (Dilaudid) 0.5 mg PRN Q10MIN PRN 12/08/20 07:30 12/08/20 20:00 DC Info (CONTRAST GIVEN -- Rx MONITORING) 1 each PRN DAILY PRN 12/06/20 21:15 12/08/20 21:14 DC Insulin Glargine (Lantus Syringe) 15 unit QHS 12/07/20 21:00 12/15/20 22:32 15 UNIT Insulin Human Lispro (HumaLOG VIAL for OP,RR ONLY) 0-10 units PRN Q1HR PRN 12/08/20 09:00 12/09/20 08:59 DC 12/08/20 09:55 6 UNIT Insulin Human Lispro (HumaLOG) 0-9 UNITS TIDWMEALS 12/07/20 08:00 12/15/20 13:10 4 UNITS Iohexol (Omnipaque 300 Mg/ml) 50 ml STK-MED ONCE 12/08/20 07:08 12/08/20 07:09 DC 12/08/20 08:23 10 ML Labetalol HCl (Normodyne Iv Push) 20 mg PRN Q4HRS PRN 12/07/20 06:30 Lactobacillus Rhamnosus (Culturelle) 1 cap BID 12/09/20 21:00 12/16/20 08:53 1 CAP Levofloxacin/ Dextrose 150 ml @ 100 mls/hr 1X ONCE 12/06/20 21:00 12/06/20 22:29 DC 12/06/20 22:24 100 MLS/HR Lidocaine HCl (Lidocaine Pf 2% Vial) 5 ml STK-MED ONCE 12/08/20 07:19 12/08/20 07:19 DC Losartan Potassium (Cozaar) 50 mg DAILY 12/07/20 09:00 12/09/20 12:59 DC 12/09/20 10:04 50 MG Magnesium Hydroxide (Milk Of Magnesia) 2,400 mg PRN Q12HR PRN 12/07/20 06:30 12/12/20 04:23 DC 12/08/20 17:09 2,400 MG Magnesium Sulfate 50 ml @ 25 mls/hr 1X ONCE 12/16/20 08:00 12/16/20 09:59 DC 12/16/20 08:54 25 MLS/HR Morphine Sulfate (Morphine Sulfate) 1 mg PRN Q10MIN PRN 12/08/20 07:30 12/08/20 20:00 DC Neostigmine [place] (Neostigmine Methylsulfate) 5 mg STK-MED ONCE 12/08/20 09:30 12/08/20 09:30 DC Non-Formulary Medication (Alendronate Sodium (Fosamax)) 70 mg WEEKLY 12/07/20 09:00 UNV Ondansetron HCl (Zofran) 4 mg STK-MED ONCE 12/08/20 07:19 12/08/20 07:19 DC Phenylephrine HCl (PHENYLEPHRINE in 0.9% NACL PF) 1 mg STK-MED ONCE 12/08/20 08:34 12/08/20 08:34 DC Piperacillin Sod/ Tazobactam Sod (Zosyn Per Pharmacy) 1 each PRN DAILY PRN 12/07/20 07:00 Piperacillin Sod/ Tazobactam Sod 2.25 gm/Sodium Chloride 50 ml @ 100 mls/hr Q8HRS 12/12/20 22:00 12/16/20 06:18 100 MLS/HR Piperacillin Sod/ Tazobactam Sod 3.375 gm/Sodium Chloride 50 ml @ 100 mls/hr Q6HRS 12/07/20 07:30 12/11/20 15:43 DC 12/11/20 13:03 100 MLS/HR Polyethylene Glycol (miraLAX PACKET) 17 gm DAILY 12/09/20 13:00 12/10/20 10:57 17 GM Potassium Chloride (Klor-Con) 40 meq 1X ONCE 12/16/20 06:00 12/16/20 06:01 DC 12/16/20 06:19 40 MEQ Prochlorperazine Edisylate (Compazine) 5 mg PACU PRN PRN 12/08/20 07:30 12/08/20 20:00 DC Propofol (Diprivan) 200 mg STK-MED ONCE 12/08/20 07:19 12/08/20 07:19 DC Ringer's Solution 1,000 ml @ 30 mls/hr Q24H 12/08/20 07:30 12/08/20 19:29 DC 12/08/20 11:21 30 MLS/HR Sodium Bicarbonate 150 meq/Dextrose 1,150 ml @ 60 mls/hr [id number] 12/11/20 13:00 12/15/20 10:50 DC 12/14/20 01:35 60 MLS/HR Sodium Chloride 1,000 ml @ 75 mls/hr [id number] 12/15/20 11:00 12/16/20 02:15 75 MLS/HR Zolpidem Tartrate (Ambien) 5 mg PRN QHS PRN 12/07/20 06:30 12/15/20 21:52 5 MG Lab Laboratory Tests Test 12/15/20 12:09 12/15/20 16:57 12/15/20 19:57 12/16/20 03:55 Glucose (Fingerstick) 190 mg/dL (70-99) 97 mg/dL (70-99) 218 mg/dL (70-99) Sodium Level 144 mmol/L (136-145) Potassium Level 3.0 mmol/L (3.5-5.1) Chloride Level 103 mmol/L (98-107) Carbon Dioxide Level 31 mmol/L (21-32) Anion Gap 10 (6-14) Blood Urea Nitrogen 31 mg/dL (7-20) Creatinine 2.5 mg/dL (0.6-1.0) Estimated GFR (Cockcroft-Gault) 19.0 Glucose Level 74 mg/dL (70-99) Calcium Level 7.5 mg/dL (8.5-10.1) Magnesium Level 1.2 mg/dL (1.8-2.4) Test 12/16/20 08:19 Glucose (Fingerstick) 72 mg/dL (70-99) Results All relevant outside records, renal labs, imaging studies, telemetry/EKG's were reviewed. Justicifation of Admission Dx: Justifications for Admission: Justification of Admission Dx: Yes ISABELL HEALY MD Dec 16, 2020 10:10
--- NOTE | 2020-12-16 10:16 | PDOC ---
[employer] PROGRESS NOTE Date of Service DOS: DATE: 12/16/20 TIME: 10:10 Chief Complaint Chief Complaint A/P Acute cholecystitis - gangrenous s/p laparoscopic cholecystectomy on 12/08/2020 Acute kidney injury probably secondary to contrast? (Her baseline creatinine was 1 now her creatinine is 4.6) nephrology following Service Diabetes Hypertension Hyperlipidemia Arrhythmias Transaminase-itis History of breast cancer FEN - ADA PPX - lovenox FULL CODE Dispo - inpatient History of Present Illness History of Present Illness Ms Urbina is a 70-year-old female with past medical history DM2, HTN, right breast cancer, who presents to the ED with complaints of worsening epigastric pain for the past 3 days. She reports sharp pain, 7/10, that is aggravated by deep inspiration. Associated nausea, vomiting, and anorexia. She denies any fever, diarrhea, shortness of breath, or recent injury. In the ED labs showed WBC 42.1, platelets 431, CBG 337, AST 202, ALT 166, alkaline phos 148, BNP 1457, troponin <0.017, lactic acid 1.5, albumin 3.2. She received broad-spectrum antibiotics and IV fluids. CT abdomen/pelvis showed findings favored to represent acute cholecystitis. She received broad-spectrum antibiotics and IV fluids. She has been fully vaccinated against COVID-19. Quite elevated from the be admitted with general surgery consultation. 12/08: Afebrile. Pain increased overnight, increase as needed IV pain me dication. Abdominal ultrasound showed acute calculus cholecystitis, without common bile duct dilation. To surgery today. 12/09: Her creatinine bumped up to 3.4 (I suspect this might be contrast induced?) 12/10: Pt's creatinine bumped up again to 4.3, thus we awaiting to see further results with continued IV Fluids. 12/11: Pt's creatinine has increased again to 4.9, so will continue to give IV fluids and hold off on dialysis for now since the pt's O2 levels are fine. 12/13: Patient evaluated and examined at bedside. No major events overnight. Creatinine remains quite elevated. Tolerating diet a little bit better. Drain remains in place. Continue monitoring creatinine daily. Nephro following. Surgery following. 12/14: Patient evaluated and examined at bedside. Creatinine actually some improvement this morning down to 3.5. We will continue to monitor daily. Tolerating diet. Drain remains in place. Good likelihood of discharge in the next couple of days. 12/15: Patient evaluate examined at bedside. Creatinine continues to improve. Switching fluids today. Monitoring creatinine. Continue antibiotics. Patient without any complaints stable. Plan of care discussed with bedside RN. Afebrile overnight. Cr improved to 2.5, mag 1.2, potassium 3. Pain at her IV site with magnesium infusion. Otherwise says sore throat little bit shortness of breath improved with incentive spirometry. KESHAWN drain still in place with serous fluid. Still on antibiotics. Vitals/I&O Vitals/I&O: Vital Signs Date Time Temp Pulse Resp B/P (MAP) Pulse Ox O2 Delivery O2 Flow Rate FiO2 12/16/20 08:54 75 118/64 12/16/20 08:00 Room Air 12/16/20 07:00 97.9 18 97 97.9 12/15/20 08:07 2.0 I & O 12/15/20 12/15/20 12/16/20 15:00 23:00 07:00 Intake Total 200 ml Output Total 450 ml Balance -250 ml Physical Exam General: Alert, Oriented X3, Cooperative Heart: Regular rate Lungs: Clear Abdomen: Soft, Other (ND, drain serosang) Extremities: No clubbing, No cyanosis Skin: No rashes Labs Labs: Laboratory Tests Test 12/15/20 12:09 12/15/20 16:57 12/15/20 19:57 12/16/20 03:55 Glucose (Fingerstick) 190 mg/dL (70-99) 97 mg/dL (70-99) 218 mg/dL (70-99) Sodium Level 144 mmol/L (136-145) Potassium Level 3.0 mmol/L (3.5-5.1) Chloride Level 103 mmol/L (98-107) Carbon Dioxide Level 31 mmol/L (21-32) Anion Gap 10 (6-14) Blood Urea Nitrogen 31 mg/dL (7-20) Creatinine 2.5 mg/dL (0.6-1.0) Estimated GFR (Cockcroft-Gault) 19.0 Glucose Level 74 mg/dL (70-99) Calcium Level 7.5 mg/dL (8.5-10.1) Magnesium Level 1.2 mg/dL (1.8-2.4) Test 12/16/20 08:19 Glucose (Fingerstick) 72 mg/dL (70-99) Comment Review of Relevant I have reviewed the following items wally (where applicable) has been applied. Medications: Current Medications Medications (Trade) Dose Ordered Sig/Kaye Route PRN Reason Start Time Stop Time Status Last Admin Dose Admin Potassium Chloride (Klor-Con) 40 meq [id number] ONCE PO 12/15/20 11:00 12/15/20 11:01 DC 12/15/20 12:55 Sodium Chloride 1,000 ml @ 75 mls/hr [id number] IV 12/15/20 11:00 12/16/20 02:15 Potassium Chloride (Klor-Con) 40 meq 1X ONCE PO 12/16/20 06:00 12/16/20 06:01 DC 12/16/20 06:19 Magnesium Sulfate 50 ml @ 25 mls/hr 1X ONCE IV 12/16/20 08:00 12/16/20 09:59 DC 12/16/20 08:54 Justifications for Admission General Conditions Other justification for admit: Acute cholecystitis Other Justification LUANNE WILLAMS MD Dec 16, 2020 10:16
[2020-12-16] MEDS ORDERED: BENZOCAINE/MENTHOL LOZENGE. PO PRN (10:45)
[2020-12-16 11:00] VITALS: BP 146/74
[2020-12-16] MEDS: BUTALB/APAP/CAFEIN 50/325/40MG TABLET. PO PRN (12:51)
--- NOTE | 2020-12-16 12:55 | NUR ---
SS following up with discharge planning. SS reviewed pt chart and discussed with pt RN. Pt is from home with mother and is currently on room air. COVID19 negative. Pt on IV Zosyn. Mag being replaced today. PT/OT recommended home with assistance. SS will continue to follow for discharge planning.
--- NOTE | 2020-12-16 13:48 | PDOC ---
SURGICAL PROGRESS NOTE DATE: 12/16/20 TIME: 13:47 Subjective eating more minimal pain no nausea Vital Signs Vital Signs Date Time Temp Pulse Resp B/P (MAP) Pulse Ox O2 Delivery O2 Flow Rate FiO2 12/16/20 11:00 97.6 80 18 146/74 (98) 97 Room Air 97.6 12/15/20 08:07 2.0 I&O Intake and Output 12/16/20 07:00 Intake Total 200 ml Output Total 450 ml Balance -250 ml Intake Oral 200 ml Output Urine Total 450 ml # Voids 6 # Bowel Movements 2 General: Alert, Oriented X3, Cooperative Abdomen: Soft, Other (ND, drain serous ) Labs Laboratory Tests Test 12/14/20 16:30 12/15/20 07:10 12/15/20 08:06 12/15/20 12:09 Glucose (Fingerstick) 84 mg/dL (70-99) 104 mg/dL (70-99) 190 mg/dL (70-99) Sodium Level 143 mmol/L (136-145) Potassium Level 2.8 mmol/L (3.5-5.1) Chloride Level 104 mmol/L (98-107) Carbon Dioxide Level 31 mmol/L (21-32) Anion Gap 8 (6-14) Blood Urea Nitrogen 42 mg/dL (7-20) Creatinine 2.8 mg/dL (0.6-1.0) Estimated GFR (Cockcroft-Gault) 16.7 Glucose Level 107 mg/dL (70-99) Calcium Level 7.6 mg/dL (8.5-10.1) Phosphorus Level 4.5 mg/dL (2.6-4.7) Magnesium Level 1.3 mg/dL (1.8-2.4) Test 12/15/20 16:57 12/15/20 19:57 12/16/20 03:55 12/16/20 08:19 Glucose (Fingerstick) 97 mg/dL (70-99) 218 mg/dL (70-99) 72 mg/dL (70-99) Sodium Level 144 mmol/L (136-145) Potassium Level 3.0 mmol/L (3.5-5.1) Chloride Level 103 mmol/L (98-107) Carbon Dioxide Level 31 mmol/L (21-32) Anion Gap 10 (6-14) Blood Urea Nitrogen 31 mg/dL (7-20) Creatinine 2.5 mg/dL (0.6-1.0) Estimated GFR (Cockcroft-Gault) 19.0 Glucose Level 74 mg/dL (70-99) Calcium Level 7.5 mg/dL (8.5-10.1) Magnesium Level 1.2 mg/dL (1.8-2.4) Test 12/16/20 12:03 Glucose (Fingerstick) 161 mg/dL (70-99) Laboratory Tests Test 12/15/20 16:57 12/15/20 19:57 12/16/20 03:55 12/16/20 08:19 Glucose (Fingerstick) 97 mg/dL (70-99) 218 mg/dL (70-99) 72 mg/dL (70-99) Sodium Level 144 mmol/L (136-145) Potassium Level 3.0 mmol/L (3.5-5.1) Chloride Level 103 mmol/L (98-107) Carbon Dioxide Level 31 mmol/L (21-32) Anion Gap 10 (6-14) Blood Urea Nitrogen 31 mg/dL (7-20) Creatinine 2.5 mg/dL (0.6-1.0) Estimated GFR (Cockcroft-Gault) 19.0 Glucose Level 74 mg/dL (70-99) Calcium Level 7.5 mg/dL (8.5-10.1) Magnesium Level 1.2 mg/dL (1.8-2.4) Test 12/16/20 12:03 Glucose (Fingerstick) 161 mg/dL (70-99) Assessment/Plan ok to remove drain can Dc when medically ready , will sign off, FU 2 weeks Justicifation of Admission Dx: Justifications for Admission: Justification of Admission Dx: Yes TABITHA MAGDALENO COST RECORDER Dec 16, 2020 13:48
[2020-12-16 15:00] VITALS: BP 153/66
[2020-12-16 19:00] VITALS: BP 135/68
[2020-12-16] MEDS: ZOLPIDEM 5 MG TABLET. PO PRN (20:43)
[2020-12-16] MEDS: INSULIN GLARGINE SYRINGE. SQ SCH (21:09)
[2020-12-16 23:00] VITALS: BP 144/74
[2020-12-17 03:00] VITALS: BP 141/71
[2020-12-17] MEDS: BUTALB/APAP/CAFEIN 50/325/40MG TABLET. PO PRN ×2 (03:17→10:18)
[2020-12-17] MEDS: PIPERACILLIN/TAZOBACTAM 2.25 GM in IV NORMAL SALINE 50ML 50 ML IV SCH (06:05)
[2020-12-17] MEDS: HEPARIN for SUB-Q USE 5,000 UNIT/ML VIAL. SQ SCH (06:06)
[2020-12-17 07:00] VITALS: BP 160/66
[2020-12-17 07:11] LABS: CALCIUM 7.7 mg/dL (8.5-10.1); CREATININE 2.1 mg/dL (0.6-1.0); GFR 23.3; POTASSIUM 3.4 mmol/L (3.5-5.1)
[2020-12-17] MEDS ORDERED: POTASSIUM BICARB 20 MEQ EFFERVESCENT TABLET. PO ONE (07:45)
--- NOTE | 2020-12-17 07:45 | PDOC ---
[employer] PROGRESS NOTE Date of Service DOS: DATE: 12/17/20 TIME: 07:44 Chief Complaint Chief Complaint A/P Acute cholecystitis - gangrenous s/p laparoscopic cholecystectomy on 12/08/2020 Acute kidney injury probably secondary to contrast? (Her baseline creatinine was 1 now her creatinine is 4.6) nephrology following Service Diabetes Hypertension Hyperlipidemia Arrhythmias Transaminase-itis History of breast cancer FEN - ADA PPX - lovenox FULL CODE Dispo - inpatient History of Present Illness History of Present Illness Ms Urbina is a 70-year-old female with past medical history DM2, HTN, right breast cancer, who presents to the ED with complaints of worsening epigastric pain for the past 3 days. She reports sharp pain, 7/10, that is aggravated by deep inspiration. Associated nausea, vomiting, and anorexia. She denies any fever, diarrhea, shortness of breath, or recent injury. In the ED labs showed WBC 42.1, platelets 431, CBG 337, AST 202, ALT 166, alkaline phos 148, BNP 1457, troponin <0.017, lactic acid 1.5, albumin 3.2. She received broad-spectrum antibiotics and IV fluids. CT abdomen/pelvis showed findings favored to represent acute cholecystitis. She received broad-spectrum antibiotics and IV fluids. She has been fully vaccinated against COVID-19. Quite elevated from the be admitted with general surgery consultation. 12/08: Afebrile. Pain increased overnight, increase as needed IV pain me dication. Abdominal ultrasound showed acute calculus cholecystitis, without common bile duct dilation. To surgery today. 12/09: Her creatinine bumped up to 3.4 (I suspect this might be contrast induced?) 12/10: Pt's creatinine bumped up again to 4.3, thus we awaiting to see further results with continued IV Fluids. 12/11: Pt's creatinine has increased again to 4.9, so will continue to give IV fluids and hold off on dialysis for now since the pt's O2 levels are fine. 12/13: Patient evaluated and examined at bedside. No major events overnight. Creatinine remains quite elevated. Tolerating diet a little bit better. Drain remains in place. Continue monitoring creatinine daily. Nephro following. Surgery following. 12/14: Patient evaluated and examined at bedside. Creatinine actually some improvement this morning down to 3.5. We will continue to monitor daily. Tolerating diet. Drain remains in place. Good likelihood of discharge in the next couple of days. 12/15: Patient evaluate examined at bedside. Creatinine continues to improve. Switching fluids today. Monitoring creatinine. Continue antibiotics. Patient without any complaints stable. Plan of care discussed with bedside RN. 12/16: Afebrile overnight. Cr improved to 2.5, mag 1.2, potassium 3. Pain at her IV site with magnesium infusion. Otherwise says sore throat little bit shortness of breath improved with incentive spirometry. KESHAWN drain still in place with serous fluid. Still on antibiotics. Afebrile overnight. Drain pulled, off antibiotics. Creatinine improved to 2.1. Nausea improved. Discussed holding Metformin losartan and follow-up outpatient with general surgery and nephrology. Vitals/I&O Vitals/I&O: Vital Signs Date Time Temp Pulse Resp B/P (MAP) Pulse Ox O2 Delivery O2 Flow Rate FiO2 12/17/20 03:00 98.3 79 18 141/71 (94) 95 98.3 12/16/20 20:05 Room Air I & O 12/16/20 12/16/20 12/17/20 15:00 23:00 07:00 Intake Total 900 ml Balance 900 ml Physical Exam General: Alert, Oriented X3, Cooperative Heart: Regular rate Lungs: Clear Abdomen: Soft, Other (ND, drain serous ) Extremities: No clubbing, No cyanosis Skin: No rashes Labs Labs: Laboratory Tests Test 12/16/20 08:19 12/16/20 12:03 12/16/20 16:47 12/16/20 20:38 Glucose (Fingerstick) 72 mg/dL (70-99) 161 mg/dL (70-99) 89 mg/dL (70-99) 199 mg/dL (70-99) Test 12/17/20 06:20 Sodium Level 146 mmol/L (136-145) Potassium Level 3.4 mmol/L (3.5-5.1) Chloride Level 107 mmol/L (98-107) Carbon Dioxide Level 27 mmol/L (21-32) Anion Gap 12 (6-14) Blood Urea Nitrogen 24 mg/dL (7-20) Creatinine 2.1 mg/dL (0.6-1.0) Estimated GFR (Cockcroft-Gault) 23.3 Glucose Level 112 mg/dL (70-99) Calcium Level 7.7 mg/dL (8.5-10.1) Comment Review of Relevant I have reviewed the following items wally (where applicable) has been applied. Medications: Current Medications Medications (Trade) Dose Ordered Sig/Kaye Route PRN Reason Start Time Stop Time Status Last Admin Dose Admin Magnesium Sulfate 50 ml @ 25 mls/hr 1X ONCE IV 12/16/20 08:00 12/16/20 09:59 DC 12/16/20 08:54 Justifications for Admission General Conditions Other justification for admit: Acute cholecystitis Other Justification LUANNE WILLAMS MD Dec 17, 2020 07:45
[2020-12-17] MEDS: INSULIN LISPRO 300 UNITS/3 ML VIAL. SQ SCH ×4 (08:00→12:42)
[2020-12-17] MEDS ORDERED: POLY17PO52 PO (08:57)
[2020-12-17] MEDS ORDERED: HYDR-2761 PO (08:57)
[2020-12-17] MEDS ORDERED: LINAGLIPTIN 5 MG TABLET PO SCH (09:00)
[2020-12-17] MEDS: POLYETHYLENE GLYCOL 3350 17 GM PACKET. PO SCH (09:00)
--- NOTE | 2020-12-17 09:30 | PDOC3 ---
Discharge Summary Visit Information Date of Admission: Dec 06, 2020 Date of Discharge: Dec 17, 2020 Admitting Diagnosis: Acute cholecystitis Final Diagnosis Acute cholecystitis due to gangrenous gallbladder Brief Hospital Course Allergies Allergies Coded Allergies Type Severity Reaction Last Updated Verified Sulfa (Sulfonamide Antibiotics) Allergy Severe Tongue Swelling 04/03/14 Yes Vital Signs Vital Signs Date Time Temp Pulse Resp B/P (MAP) Pulse Ox O2 Delivery O2 Flow Rate FiO2 12/17/20 03:00 98.3 79 18 141/71 (94) 95 98.3 12/16/20 20:05 Room Air Lab Results Laboratory Tests Test 12/15/20 12:09 12/15/20 16:57 12/15/20 19:57 12/16/20 03:55 Glucose (Fingerstick) 190 mg/dL (70-99) 97 mg/dL (70-99) 218 mg/dL (70-99) Sodium Level 144 mmol/L (136-145) Potassium Level 3.0 mmol/L (3.5-5.1) Chloride Level 103 mmol/L (98-107) Carbon Dioxide Level 31 mmol/L (21-32) Anion Gap 10 (6-14) Blood Urea Nitrogen 31 mg/dL (7-20) Creatinine 2.5 mg/dL (0.6-1.0) Estimated GFR (Cockcroft-Gault) 19.0 Glucose Level 74 mg/dL (70-99) Calcium Level 7.5 mg/dL (8.5-10.1) Magnesium Level 1.2 mg/dL (1.8-2.4) Test 12/16/20 08:19 12/16/20 12:03 12/16/20 16:47 12/16/20 20:38 Glucose (Fingerstick) 72 mg/dL (70-99) 161 mg/dL (70-99) 89 mg/dL (70-99) 199 mg/dL (70-99) Test 12/17/20 06:20 12/17/20 08:13 Sodium Level 146 mmol/L (136-145) Potassium Level 3.4 mmol/L (3.5-5.1) Chloride Level 107 mmol/L (98-107) Carbon Dioxide Level 27 mmol/L (21-32) Anion Gap 12 (6-14) Blood Urea Nitrogen 24 mg/dL (7-20) Creatinine 2.1 mg/dL (0.6-1.0) Estimated GFR (Cockcroft-Gault) 23.3 Glucose Level 112 mg/dL (70-99) Calcium Level 7.7 mg/dL (8.5-10.1) Glucose (Fingerstick) 96 mg/dL (70-99) Laboratory Tests Test 12/16/20 12:03 12/16/20 16:47 12/16/20 20:38 12/17/20 06:20 Glucose (Fingerstick) 161 mg/dL (70-99) 89 mg/dL (70-99) 199 mg/dL (70-99) Sodium Level 146 mmol/L (136-145) Potassium Level 3.4 mmol/L (3.5-5.1) Chloride Level 107 mmol/L (98-107) Carbon Dioxide Level 27 mmol/L (21-32) Anion Gap 12 (6-14) Blood Urea Nitrogen 24 mg/dL (7-20) Creatinine 2.1 mg/dL (0.6-1.0) Estimated GFR (Cockcroft-Gault) 23.3 Glucose Level 112 mg/dL (70-99) Calcium Level 7.7 mg/dL (8.5-10.1) Test 12/17/20 08:13 Glucose (Fingerstick) 96 mg/dL (70-99) Brief Hospital Course Ms Urbina is a 70-year-old female with past medical history DM2, HTN, right breast cancer, who presents to the ED with complaints of worsening epigastric pain for the past 3 days. She reports sharp pain, 7/10, that is aggravated by deep inspiration. Associated nausea, vomiting, and anorexia. She denies any fever, diarrhea, shortness of breath, or recent injury. In the ED labs showed WBC 42.1, platelets 431, CBG 337, AST 202, ALT 166, alkaline phos 148, BNP 1457, troponin <0.017, lactic acid 1.5, albumin 3.2. She received broad-spectrum antibiotics and IV fluids. CT abdomen/pelvis showed findings favored to represent acute cholecystitis. She received broad-spectrum antibiotics and IV fluids. She has been fully vaccinated against COVID-19. Quite elevated from the be admitted with general surgery consultation. 12/08: Afebrile. Pain increased overnight, increase as needed IV pain medication. Abdominal ultrasound showed acute calculus cholecystitis, without common bile duct dilation. To surgery today. 12/09: Her creatinine bumped up to 3.4 (I suspect this might be contrast induced?) 12/10: Pt's creatinine bumped up again to 4.3, thus we awaiting to see further results with continued IV Fluids. 12/11: Pt's creatinine has increased again to 4.9, so will continue to give IV fluids and hold off on dialysis for now since the pt's O2 levels are fine. 12/13: Patient evaluated and examined at bedside. No major events overnight. Creatinine remains quite elevated. Tolerating diet a little bit better. Drain remains in place. Continue monitoring creatinine daily. Nephro following. Surgery following. 12/14: Patient evaluated and examined at bedside. Creatinine actually some improvement this morning down to 3.5. We will continue to monitor daily. Tolerating diet. Drain remains in place. Good likelihood of discharge in the next couple of days. 12/15: Patient evaluate examined at bedside. Creatinine continues to improve. Switching fluids today. Monitoring creatinine. Continue antibiotics. Patient without any complaints stable. Plan of care discussed with bedside RN. 12/16: Afebrile overnight. Cr improved to 2.5, mag 1.2, potassium 3. Pain at her IV site with magnesium infusion. Otherwise says sore throat little bit shor tness of breath improved with incentive spirometry. KESHAWN drain still in place with serous fluid. Still on antibiotics. Afebrile overnight. Drain pulled, off antibiotics. Creatinine improved to 2.1. Nausea improved. Discussed holding Metformin losartan and follow-up outpatient with general surgery and nephrology. Overall likely had contrast nephropathy in the setting of taking Metformin prior to admission with losartan and Zosyn. In renal recovery. Consults: Nephrology, General surgery Problem list: Acute cholecystitis - gangrenous s/p laparoscopic cholecystectomy on 12/08/2020 Acute kidney injury probably secondary to contrast? (Her baseline creatinine was 1 now her creatinine is 4.6) nephrology following Service Diabetes Hypertension Hyperlipidemia Arrhythmias Transaminasitis History of breast cancer - has f/u at [facility] cancer Greater than 30 minutes spent on d/c home with self care Discharge Information Condition at Discharge: Improved Follow Up: Weeks (1) Disposition/Orders: D/C to Home Scheduled Alendronate Sodium (Fosamax) 70 Mg Tablet, 70 MG PO WEEKLY, (Reported) Entered as Reported by: KELLEY JARAMILLO on 12/16/161202 Last Taken: Unknown Dose on 12/02/20 Last Action: Last Taken Edited on 12/07/201710 by RONNIE GUZMAN Ascorbic Acid (Vitamin C) 500 Mg Capsule.er, 1 CAP PO DAILY for supplement for 30 Days, #30 Ref 0 (Reported) Entered as Reported by: RONNIE GUZMAN on 12/07/201710 Last Taken: Unknown Dose on 12/05/20 Last Action: New Order on 12/07/201710 by RONNIE GUZMAN Atorvastatin Calcium (Atorvastatin Calcium) 10 Mg Tablet, 1 TAB PO DAILY for HLD, #30 Ref 5 (Reported) Entered as Reported by: RONNIE GUZMAN on 12/07/201710 Last Taken: Unknown Dose on 12/05/20 Last Action: New Order on 12/07/201710 by RONNIE GUZMAN Cetirizine Hcl (Zyrtec) 10 Mg Capsule, 10 MG PO DAILY, (Reported) Entered as Reported by: ANA CRISTINA OROZCO on 03/06/13925 Last Taken: Unknown Dose on 12/05/20 Last Action: Last Taken Edited on 12/07/201710 by RONNIE GUZMAN Diltiazem Hcl (Diltiazem Er) 240 Mg Cap.er.deg, 240 MG PO BID, (Reported) Entered as Reported by: ANA CRISTINA OROZCO on 03/06/13925 Last Taken: Unknown Dose on 12/05/20 Last Action: Last Taken Edited on 12/07/201710 by RONNIE GUZMAN Hyalur Ac/Chond Sul/Colg Ii/Aa (Hyaluronic Acid 40 Mg Capsule) 1 Each Capsule, 1 EACH PO DAILY for supplement, (Reported) Entered as Reported by: RONNIE GUZMAN on 12/07/201710 Last Taken: Unknown Dose on 12/05/20 Last Action: New Order on 12/07/201710 by RONNIE GUZMAN Losartan Potassium (Losartan Potassium) 50 Mg Tablet, 50 MG PO DAILY, (Reported) Entered as Reported by: KELLEY JARAMILLO on 12/16/16 120 Last Taken: Unknown Dose on 12/05/20 Last Action: Last Taken Edited on 12/07/201710 by RONNIE GUZMAN Metformin Hcl (Metformin Hcl) 1,000 Mg Tablet, 1,000 MG PO BIDWMEALS, (Reported) Entered as Reported by: RUBEN WHITE on 06/23/132010 Last Taken: Unknown Dose on 12/05/20 Last Action: Last Taken Edited on 12/07/201710 by RONNIE GUZMAN Multivitamin (Multi Vitamin Daily) 1 Each Tablet, 1 EACH PO DAILY, (Reported) Entered as Reported by: PATRICIA BUCKLEY on 04/02/14 1607 Last Taken: Unknown Dose on 12/05/20 Last Action: Last Taken Edited on 12/07/201710 by RONNIE GUZMAN Eglon-3 Fatty Acids/Fish Oil (Fish Oil 1,000 Mg Capsule) 1 Each Capsule, 1 EACH PO BID, (Reported) Entered as Reported by: ASYA WIRGHT on 10/08/17 1043 Last Action: Reviewed on 12/07/20 0014 by HARLEY NEVILLE Omeprazole (Omeprazole) 20 Mg Tablet.dr, 1 TAB PO DAILY for gerd, #90 Ref 1 (Reported) Entered as Reported by: RONNIE GUZMAN on 12/07/201710 Last Taken: Unknown Dose on 12/05/20 Last Action: New Order on 12/07/201710 by RONNIE GUZMAN Ondansetron (Ondansetron Odt) 4 Mg Tab.rapdis, 1 TAB PO PRN Q6-8HRS for nausea, #16 (Reported) Entered as Reported by: RONNIE GUZMAN on 12/07/201710 Last Taken: Unknown Dose on 12/05/20 Last Action: New Order on 12/07/201710 by RONNIE GUZMAN Polyethylene Glycol 3350 (Polyethylene Glycol 3350) 17 Gm Powd.pack, 17 GM PO DAILY for Constipation for 30 Days, #30 Prescribed by: LUANNE WILLAMS MD on 12/17/20 0857 Sitagliptin Phosphate (Januvia) 100 Mg Tablet, 1 TAB PO DAILY for diabetes, #30 Ref 5 (Reported) Entered as Reported by: RONNIE GUZMAN on 12/07/201710 Last Taken: Unknown Dose on 12/05/20 Last Action: New Order on 12/07/201710 by RONNIE GUZMAN Scheduled PRN Butalbital/Aspirin/Caffeine (Fiorinal 50-325-40 Mg Capsule) 1 Each Capsule, 1 EACH PO PRN TID PRN for PAIN, (Reported) Entered as Reported by: PATRICIA BUCKLEY on 04/02/14 1604 Last Action: Converted on 12/07/20 0626 by COLEEN HEMPHILL MD Hydrocodone Bit/Acetaminophen (Hydrocodone-Apap 5-325 ) 1 Tab Tablet, 1 TAB PO PRN Q6HRS PRN for MODERATE PAIN for 6 Days, #15 Prescribed by: LUANNE WILLAMS MD on 12/17/20 0859 Zolpidem Tartrate (Ambien) 5 Mg Tablet, 5 MG PO HS PRN for INSOMNIA, Ref 0 (Reported) Entered as Reported by: KELLEY JARAMILLO on 12/16/16 1204 Last Action: Reviewed on 12/07/2013 by HARLEY NEVILLE Miscellaneous Medications [januvia] , (Reported) Entered as Reported by: HARLEY NEVILLE on 12/07/2015 Last Action: Reviewed on 12/07/2017 by HARLEY NEVILLE [lipitor] , (Reported) Entered as Reported by: HARLEY NEVILLE on 12/07/2017 Last Action: Reviewed on 12/07/2017 by HARLEY NEVILLE Discontinued Medications Famotidine (Famotidine) 20 Mg Tablet, 20 MG PO HS for gerd, (Reported) Entered as Reported by: RONNIE GUZMAN on 12/07/201710 Last Taken: Unknown Dose on 12/05/20 Last Action: New Order on 12/07/201710 by RONNIE GUZMAN Justicifation of Admission Dx: Justifications for Admission: Justification of Admission Dx: Yes LUANNE WILLAMS MD Dec 17, 2020 09:30
--- NOTE | 2020-12-17 09:55 | PDOC ---
DATE OF SERVICE DATE: 12/17/20 TIME: 09:54 SUBJECTIVE ROS on RA, Denies N/V . No SOB.States feeling better OBJECTIVE Vital Signs Vital Signs Date Time Temp Pulse Resp B/P (MAP) Pulse Ox O2 Delivery O2 Flow Rate FiO2 12/17/20 07:00 97.8 79 18 160/66 (97) 97 Room Air 97.8 I & 0 Intake and Output 12/17/20 07:00 Intake Total 900 ml Balance 900 ml Intake Oral 900 ml # Voids 6 # Bowel Movements 2 PHYSICAL EXAM Physical Exam General: Alert, Oriented X3, NAD HEENT: PERRLA, EOMI, OM moist Neck Supple Lungs: Clear to auscultation, Non labored Cardiovascular: S1, S2, No rub Abdomen: soft. Extremities: No clubbing, No cyanosis, No edema Skin: No rashes, No significant lesion Neuro: Normal speech, Normal tone, Sensation intact Psych/Mental Status: Mental status NL, Mood NL ling + , No CVA or SP tenderness DIAGNOSIS/ASSESSMENT Assessment & Plan SHANE - ATN 2/2 NSAID's ; Recd IV contrast , Hypotension (Losartan was not dced) , Oligoanuric initially,Renal function Improving, ; Strict I/O,Monitor Losartan held . DC IVF, encourage po intake Worsening renal function since prior to surgery ; No UTI on UA at presentation . Baseline Creat 1.0 at presentation (1.3 in 2019 x1) , CT scan at presentation with distended bladder, Recommend FU BMP with PCP in 5-7 days , maintain hydration, fu with us if needed after Labs next week . Avoid nephrotoxins including NSAID. Dw patient , RN and Dr. Ford HypoKalemia- Replace HyperNatremia- mild , Encourage water intake Acute cholecystitis s/p Laparoscopic cholecystectomy with intraoperative cholangiogram on 12/08 ; Dx Acute gangrenous cholecystitis with perforation HypoNatremia - Resolved DM2 with hyperglycemia POA Transaminitis HTN- episodes of Low BP since surgery- as low as 88 systolic Cardiac arrhythmia History of right breast cancer COMMENT/RELEVANT DATA Meds Current Medications Medications (Trade) Dose Ordered Sig/Kaye Start Time Stop Time Status Last Admin Dose Admin Acetaminophen (Tylenol) 650 mg PRN Q6HRS PRN 12/07/20 06:30 12/14/20 22:05 650 MG Acetaminophen/ Butalbital/ Caffeine (Fioricet) 1 tab PRN TID PRN 12/07/20 06:45 12/17/20 03:17 1 TAB Acetaminophen/ Hydrocodone Bitart (Lortab 5/325) 2 tab PRN Q4HRS PRN 12/08/20 10:45 12/13/20 13:24 2 TAB Al Hydroxide/Mg Hydroxide (Mylanta Plus Xs) 30 ml PRN Q3HRS PRN 12/07/20 06:30 12/12/20 04:23 DC Albuterol/ Ipratropium (Duoneb) 3 ml 1X ONCE 12/11/20 04:00 12/11/20 04:01 DC 12/11/20 04:00 3 ML Bupivacaine HCl (Sensorcaine Mpf 0.5%) 30 ml STK-MED ONCE 12/08/20 07:09 12/08/20 07:09 DC 12/08/20 08:23 10 ML Calcium Carbonate/ Glycine (Tums) 500 mg PRN Q3HRS PRN 12/07/20 06:30 12/10/20 22:01 500 MG Cellulose (Surgicel Hemostat 4x8) 1 each STK-MED ONCE 12/08/20 07:09 12/08/20 07:09 DC 12/08/20 08:23 1 EACH Dexamethasone Sodium Phosphate (Decadron) 4 mg STK-MED ONCE 12/08/20 07:19 12/08/20 07:19 DC Dextrose (Dextrose 50%-Water Syringe) 12.5 gm PRN Q15MIN PRN 12/07/20 06:30 Diltiazem HCl (Cardizem 24hr Cd) 240 mg BID 12/07/20 09:00 12/16/20 20:43 240 MG Fentanyl Citrate (Fentanyl 2ml Vial) 100 mcg STK-MED ONCE 12/08/20 10:12 12/08/20 10:13 DC Glycopyrrolate (Robinul) 1 mg STK-MED ONCE 12/08/20 09:30 12/08/20 09:30 DC Heparin Sodium (Porcine) (Heparin Sodium) 5,000 unit Q8HRS 12/07/20 14:00 12/17/20 06:06 5,000 UNIT Hydralazine HCl (Apresoline Inj) 10 mg PRN Q4HRS PRN 12/07/20 06:30 Hydromorphone HCl (Dilaudid) 0.5 mg PRN Q10MIN PRN 12/08/20 07:30 12/08/20 20:00 DC Info (CONTRAST GIVEN -- Rx MONITORING) 1 each PRN DAILY PRN 12/06/20 21:15 12/08/20 21:14 DC Insulin Glargine (Lantus Syringe) 15 unit QHS 12/07/20 21:00 12/16/20 21:09 15 UNIT Insulin Human Lispro (HumaLOG VIAL for OP,RR ONLY) 0-10 units PRN Q1HR PRN 12/08/20 09:00 12/09/20 08:59 DC 12/08/20 09:55 6 UNIT Insulin Human Lispro (HumaLOG) 0-9 UNITS TIDWMEALS 12/07/20 08:00 12/16/20 12:56 4 UNITS Iohexol (Omnipaque 300 Mg/ml) 50 ml STK-MED ONCE 12/08/20 07:08 12/08/20 07:09 DC 12/08/20 08:23 10 ML Labetalol HCl (Normodyne Iv Push) 20 mg PRN Q4HRS PRN 12/07/20 06:30 Lactobacillus Rhamnosus (Culturelle) 1 cap BID 12/09/20 21:00 12/16/20 20:43 1 CAP Levofloxacin/ Dextrose 150 ml @ 100 mls/hr 1X ONCE 12/06/20 21:00 12/06/20 22:29 DC 12/06/20 22:24 100 MLS/HR Lidocaine HCl (Lidocaine Pf 2% Vial) 5 ml STK-MED ONCE 12/08/20 07:19 12/08/20 07:19 DC Linagliptin (Tradjenta) 5 mg DAILY 12/17/20 09:00 Losartan Potassium (Cozaar) 50 mg DAILY 12/07/20 09:00 12/09/20 12:59 DC 12/09/20 10:04 50 MG Magnesium Hydroxide (Milk Of Magnesia) 2,400 mg PRN Q12HR PRN 12/07/20 06:30 12/12/20 04:23 DC 12/08/20 17:09 2,400 MG Magnesium Sulfate 50 ml @ 25 mls/hr 1X ONCE 12/16/20 08:00 12/16/20 09:59 DC 12/16/20 08:54 25 MLS/HR Morphine Sulfate (Morphine Sulfate) 1 mg PRN Q10MIN PRN 12/08/20 07:30 12/08/20 20:00 DC Neostigmine [place] (Neostigmine Methylsulfate) 5 mg STK-MED ONCE 12/08/20 09:30 12/08/20 09:30 DC Non-Formulary Medication (Alendronate Sodium (Fosamax)) 70 mg WEEKLY 12/07/20 09:00 UNV Ondansetron HCl (Zofran) 4 mg STK-MED ONCE 12/08/20 07:19 12/08/20 07:19 DC Phenylephrine HCl (PHENYLEPHRINE in 0.9% NACL PF) 1 mg STK-MED ONCE 12/08/20 08:34 12/08/20 08:34 DC Piperacillin Sod/ Tazobactam Sod (Zosyn Per Pharmacy) 1 each PRN DAILY PRN 12/07/20 07:00 12/17/20 07:43 DC Piperacillin Sod/ Tazobactam Sod 2.25 gm/Sodium Chloride 50 ml @ 100 mls/hr Q8HRS 12/12/20 22:00 12/17/20 07:43 DC 12/17/20 06:05 100 MLS/HR Piperacillin Sod/ Tazobactam Sod 3.375 gm/Sodium Chloride 50 ml @ 100 mls/hr Q6HRS 12/07/20 07:30 12/11/20 15:43 DC 12/11/20 13:03 100 MLS/HR Polyethylene Glycol (miraLAX PACKET) 17 gm DAILY 12/09/20 13:00 12/10/20 10:57 17 GM Potassium Bicarbonate (Potassium Effervescent Tablet) 40 meq 1X ONCE 12/17/20 07:45 12/17/20 07:46 DC Potassium Chloride (Klor-Con) 40 meq 1X ONCE 12/16/20 06:00 12/16/20 06:01 DC 12/16/20 06:19 40 MEQ Prochlorperazine Edisylate (Compazine) 5 mg PACU PRN PRN 12/08/20 07:30 12/08/20 20:00 DC Propofol (Diprivan) 200 mg STK-MED ONCE 12/08/20 07:19 12/08/20 07:19 DC Ringer's Solution 1,000 ml @ 30 mls/hr Q24H 12/08/20 07:30 12/08/20 19:29 DC 12/08/20 11:21 30 MLS/HR Sodium Bicarbonate 150 meq/Dextrose 1,150 ml @ 60 mls/hr [id number] 12/11/20 13:00 12/15/20 10:50 DC 12/14/20 01:35 60 MLS/HR Sodium Chloride 1,000 ml @ 75 mls/hr [id number] 12/15/20 11:00 12/16/20 11:03 DC 12/16/20 02:15 75 MLS/HR Throat Lozenges (Cepacol Sore Throat Lozenge) 1 alfred PRN Q2HRS PRN 12/16/20 10:45 Zolpidem Tartrate (Ambien) 5 mg PRN QHS PRN 12/07/20 06:30 12/16/20 20:43 5 MG Lab Laboratory Tests Test 12/16/20 12:03 12/16/20 16:47 12/16/20 20:38 12/17/20 06:20 Glucose (Fingerstick) 161 mg/dL (70-99) 89 mg/dL (70-99) 199 mg/dL (70-99) Sodium Level 146 mmol/L (136-145) Potassium Level 3.4 mmol/L (3.5-5.1) Chloride Level 107 mmol/L (98-107) Carbon Dioxide Level 27 mmol/L (21-32) Anion Gap 12 (6-14) Blood Urea Nitrogen 24 mg/dL (7-20) Creatinine 2.1 mg/dL (0.6-1.0) Estimated GFR (Cockcroft-Gault) 23.3 Glucose Level 112 mg/dL (70-99) Calcium Level 7.7 mg/dL (8.5-10.1) Test 12/17/20 08:13 Glucose (Fingerstick) 96 mg/dL (70-99) Results All relevant outside records, renal labs, imaging studies, telemetry/EKG's were reviewed. Justicifation of Admission Dx: Justifications for Admission: Justification of Admission Dx: Yes ISABELL HEALY MD Dec 17, 2020 09:55
[2020-12-17] MEDS: LACTOBACILLUS RHAMNOSUS GG 1 CAPSULE. PO SCH (10:10)
--- NOTE | 2020-12-17 10:31 | NUR ---
SS following up with discharge planning. SS reviewed pt chart and discussed with pt RN. Pt is currently on room air. COVID19 negative. PT/OT recommended home with assistance. Discharge order on the chart for home with self care.
[2020-12-17 11:00] VITALS: BP 157/80
--- NOTE | 2020-12-17 17:03 | NUR ---
patient discharged home with family. Meds, activity, incision care, follow up reviewed. IV removed intact. pt stable upon dc.
== END 2020-12-17 17:00 | disposition home or self-care (01) | DRG 417 ==
LOC: ER 18:49 → 5 SOUTH 22:51
PROVIDERS: ADMIT Internal Medicine; ATTEND Internal Medicine
PROC: BF101ZZ Fluoroscopy of Bile Ducts using Low Osmolar Contrast (ICD-10-PCS; 2020-12-08)
PROC: 0FT44ZZ Resection of Gallbladder, Percutaneous Endoscopic Approach (ICD-10-PCS; principal; 2020-12-08 08:00)
DX: K80.00 Calculus of gallbladder with acute cholecystitis without obstruction (principal); N17.0 Acute kidney failure with tubular necrosis; K82.A2 Perforation of gallbladder in cholecystitis; R65.10 Systemic inflammatory response syndrome (SIRS) of non-infectious origin without acute organ dysfunction; E87.1 Hypo-osmolality and hyponatremia; E87.0 Hyperosmolality and hypernatremia; E11.65 Type 2 diabetes mellitus with hyperglycemia; E78.00 Pure hypercholesterolemia, unspecified; E78.5 Hyperlipidemia, unspecified; E87.6 Hypokalemia; I10 Essential (primary) hypertension; K82.A1 Gangrene of gallbladder in cholecystitis; M19.011 Primary osteoarthritis, right shoulder; M19.012 Primary osteoarthritis, left shoulder; N14.1 Nephropathy induced by other drugs, medicaments and biological substances; T50.8X5A Adverse effect of diagnostic agents, initial encounter; Z85.3 Personal history of malignant neoplasm of breast; Z89.422 Acquired absence of other left toe(s); E66.9 Obesity, unspecified; J30.2 Other seasonal allergic rhinitis; Z20.822 Contact with and (suspected) exposure to COVID-19; Z88.2 Allergy status to sulfonamides; R74.01 Elevation of levels of liver transaminase levels; I49.9 Cardiac arrhythmia, unspecified; Z90.49 Acquired absence of other specified parts of digestive tract; I95.9 Hypotension, unspecified; R34 Anuria and oliguria; Z68.34 Body mass index [BMI] 34.0-34.9, adult; T39.395A Adverse effect of other nonsteroidal anti-inflammatory drugs [NSAID], initial encounter; Y92.89 Other specified places as the place of occurrence of the external cause
CPT/HCPCS: 36415; 74022; 74177; 74300; 76705; 80048; 80053; 80076; 81001; 82550; 82962; 83605; 83690; 83735; 83880; 84100; 84484; 85007; 85025; 85610; 85730; 87040; 87426; 88304; 94640; 96365; 96375; A4213; A4314; A4364; A4657; A4930; C1887; J1100; J1644; J1815; J1956; J2270; J2370; J2405; J2543; J2704; J2710; J3010; J3475; J3490; J7030; J7060; J7120; Q9967; U0003; U0005; 97116-GP; 97530-GP; 97535-GO; 99285-25; G0378

== ENCOUNTER → 2021-01-02 | Outpatient (CLI) | payer OTHER ==
[2020-12-17 11:00] VITALS: BP 157/80
[~2021-01-02] MED LIST changes: +ASCO500C PO; +ATOR10TA60 PO; +FAMO20TA5 PO; +HYAL1CAP PO; +HYDR-2761 PO; +LIP; +OMEP20TA8 PO; +ONDA4TAB12 PO; +POLY17PO52 PO; +SITA100T PO; +januvia; +lipitor
--- NOTE | 2021-01-02 17:06 | KCIC ---
EXAM: CT Chest without IV contrast CLINICAL HISTORY: Reason: Chest tightness post cholecystectomy. / Spl. Instructions: / History: Ante rior chest tight post cholecystectomy 12/08/2020. COMPARISON: None. TECHNIQUE: CT of the chest without intravenous contrast. Axial, coronal and sagittal reformatted imag es were generated. ---PQRS compliance statement - One or more of the following individualized dose reduction techniques were utilized for this study: 1. Automated exposure control 2. Adjustment of the mA and/or kV according to patient size 3. Use of iterative reconstruction technique--- FINDINGS: Lack of intravenous contrast limits evaluation of solid organs, vasculature, and lymph nodes. Chest: Heart is not enlarged. Coronary calcifications. No pericardial effusion. No pleural effusion. No pneumothorax. There is ectasia of the ascending aorta measuring 4 cm. No mediastinal or hilar lymphadenopathy. No axillary lymphadenopathy. Calcified granuloma left lower lobe. No suspicious lung nodule or mass. Within the anterior soft tiss ues overlying the right pectoralis major there is a collection with thick capsule measuring 4.1 x 2.2 cm with peripheral calcifications. Visualized Upper abdomen: Calcified splenic and hepatic granuloma. Cholecystectomy clips are seen wit h trace associated infiltration, prior cholecystectomy change. Bones: Degenerative changes of the spine are seen. IMPRESSION: 1. 4.1 cm collection within the subcutaneous tissues in the superior right chest anteriorly overlyin g the pectoralis major. This may represent chronic seroma although infectious process could have this appearance. If clinically indicated this would be amenable to ultrasound-guided aspiration. 2. No lobar consolidation or suspicious lung nodule or mass. 3. Calcified granuloma in the left lung base, liver and spleen likely from prior granulomatous proce ss. Electronically signed by: Garry Dorsey MD (01/02/2021 5:03 PM) [id number]
== END ==
LOC: KCIC CT 13:45
PROVIDERS: ATTEND Nurse Practitioner Family
DX: J84.10 Pulmonary fibrosis, unspecified (principal); K75.3 Granulomatous hepatitis, not elsewhere classified; D73.89 Other diseases of spleen; I25.10 Atherosclerotic heart disease of native coronary artery without angina pectoris; M47.819 Spondylosis without myelopathy or radiculopathy, site unspecified; Z90.49 Acquired absence of other specified parts of digestive tract
CPT/HCPCS: 71250